=== PATIENT | male | born 1950 ===

== ENCOUNTER → 2018-05-03 | Outpatient (CLI) | payer MEDICARE ==
--- NOTE | 2018-05-03 13:48 | CONS ---
CONSULTATION DATE OF SERVICE: 05/03/2018 A 67-year-old gentleman who has been evaluated in the [facility] for possible obstructive sleep apnea-hypopnea syndrome. HISTORY OF PRESENT ILLNESS/SLEEP-WAKE EVALUATION: Patient usual sleep schedule from 1 am until around 10 a.m. Patient wakes up and around 4:00 am and cannot sleep for several hours but he falls asleep again. He snores and wakes up with dry mouth and nocturia, usually no problems with falling asleep at the beginning of the night. He sleeps on the side position with his . During the day, he may have episodes of anxiety, [place] Sleepiness Scale is 6. PAST MEDICAL HISTORY: Positive for hypertension, coronary artery disease, hyperlipidemia, anxiety, nasal fracture. PAST SURGICAL HISTORY: Left shoulder surgery for rotator cuff problems. MEDICATIONS: 1. Simvastatin. 2. Isosorbide. 3. Metoprolol. 4. [place]. 5. Meloxicam. 6. Baby aspirin. 7. Ativan on p.r.n. basis. SOCIAL HISTORY: Positive for smoking for 10 pack years, quit 5 years ago. Alcohol consumption none for the last 20 years. FAMILY HISTORY: Hypertension, heart problems, hyperlipidemia, sinus headache, snoring. REVIEW OF SYSTEMS: Awakenings from sleep with difficulties to reinitiate sleep again, snoring, episodes of chest pain. PHYSICAL EXAM: gentleman without distress,. BP 111/69, HR 80, RR 18, height 5 foot 8-1/2 inches, weight 252 pounds. Body mass index 37.7, temperature 98.3, oxygen saturation at room air 95%. OROPHARYNX: Extremely low position of soft palate. NOSE: Symmetric. ABDOMEN: Obese. NECK: Wide, 18-1/4 inches in circumference. LUNGS Clear to percussion and to auscultation. Good air exchange. No wheezing or rhonchi. HEART S1, S2 regular. No murmurs, gallops, or rubs. EXTREMITIES No clubbing or cyanosis. 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 Cranial nerves 2 to 7 intact. There is no fasciculation or atrophy. noted. No focal deficits observed. EXTREMITIES: My template. IMPRESSION: 1. Snoring, awakenings from sleep, extremely low position of soft palate, wide neck, 18-1/4 inches in circumference, obstructive sleep apnea-hypopnea syndrome. 2. Coronary artery disease. 3. Hypertension. 4. History of anxiety. 5. Hyperlipidemia. 6. Status post nasal fracture. 7. Status post left shoulder surgery for rotator cuff problems 2 years ago. PLAN: 1. Polysomnography for evaluation of patient's breathing during sleep. 2. CPAP/BiPAP titration if sleep study confirms obstructive sleep apnea-hypopnea syndrome. 3. Preferable position during sleep on the side. 4. No driving if patient feels any sleepiness. 5. I will see patient for follow up visit to explain results of testing and following plan. Thank you very much for referring this patient for consultation. Sincerely, Robles Mendoza MD, PhD, FAASM Diplomat of [place] [employer] [place] [employer] Increment Manager of [facility] [place] MMODL / TRISHN: [id number] /
== END | disposition home or self-care (01) ==
LOC: SLEEP 11:42
PROVIDERS: ATTEND Internal Medicine
DX: G47.33 Obstructive sleep apnea (adult) (pediatric) (principal); I25.10 Atherosclerotic heart disease of native coronary artery without angina pectoris; I10 Essential (primary) hypertension; F41.9 Anxiety disorder, unspecified; E78.5 Hyperlipidemia, unspecified; Z87.891 Personal history of nicotine dependence; Z79.891 Long term (current) use of opiate analgesic; Z79.1 Long term (current) use of non-steroidal anti-inflammatories (NSAID); Z79.82 Long term (current) use of aspirin; Z98.890 Other specified postprocedural states
CPT/HCPCS: 99211

== ENCOUNTER 2022-01-29 13:12 | Inpatient (IN) | payer MEDICARE ==
[2022-01-29 14:09] LABS: Basophils % (A) 1 %; Eosinophils # (A) 0.2 k/uL (0-0.7); Eosinophils % (A) 4 %; HCT 39.8 % (39.0-53.0); HGB 13.7 gm/dL (13.0-17.5); Lymphocytes # (A) 1.6 k/uL (1.0-4.8); Lymphocytes % (A) 31 %; MCH 29.4 pg (25.0-35.0); MCHC 34.3 g/dL (31.0-37.0); MCV 85.8 fL (80.0-100.0); Mean Platelet Volume 8.8; Monocytes # (A) 0.3 k/uL (0-1.0); Monocytes % (A) 6 %; Neutrophils # (A) 2.9 k/uL (1.3-7.7); Neutrophils % (A) 55 %; Platelet Count 208 k/uL (150-450); RBC 4.64 m/uL (4.30-5.90); RDW 12.8 % (11.5-15.5); WBC 5.2 k/uL (3.8-10.6)
--- NOTE | 2022-01-29 14:12 | ED ---
Chest Pain HPI - General Chief Complaint: Chest Pain Stated Complaint: chest pain-3 days Time Seen by Provider: 01/29/22 13:30 Source: patient Mode of arrival: ambulatory Limitations: no limitations - History of Present Illness Initial Comments: 71-year-old male with past history of hypertension presents to the emergency department reporting chest pain for the past 3 days. States it's exertional in nature. He first noticed it when he was loading drywall into his truck. States that he will sit down and the symptoms will resolve. He has associated shortness of breath. No radiation of the pain. Did take an aspirin 325 mg this morning. States that he had a heart cath in 2014. He had a small blockage that did not need stent placement. He has not had any type of cardiac workup since then as he has not had any symptoms. No fevers, chills or cough. No abdominal pain. No ripping or tearing sensation to his back. No lower extremity swelli ng. No history of DVT or PE. No other alleviating, precipitating or modifying factors - Related Data Home Medications Medication Instructions Recorded Confirmed Isosorbide Mononitrate [Isosorbide 30 mg PO DAILY 06/30/15 01/29/22 Mononitrate ER] Aspirin EC [Ecotrin Low Dose] 81 mg PO DAILY 01/29/22 01/29/22 HYDROcodone/APAP 10-325MG [[place] 1 tab PO TID PRN 01/29/22 01/29/22 10-325] LORazepam [Ativan] 0.5 mg PO HS PRN 01/29/22 01/29/22 Metoprolol Succinate (ER) [Toprol 100 mg PO DAILY 01/29/22 01/29/22 Xl] Allergies Allergy/AdvReac Type Severity Reaction Status Date / Time No Known Allergies Allergy Verified 01/31/22 11:03 Review of Systems ROS Statement: Those systems with pertinent positive or pertinent negative responses have been documented in the HPI. ROS Other: All systems not noted in ROS Statement are negative. EKG Findings - EKG Comments: EKG Findings:: EKG demonstrates sinus bradycardia with a rate of 57. WV interval 234. QRS 93. QTC of 408. No acute ST segment elevations or depressions. Past Medical History Past Medical History: Hyperlipidemia, Hypertension History of Any Multi-Drug Resistant Organisms: None Reported Past Surgical History: Orthopedic Surgery Additional Past Surgical History / Comment(s): LEFT SHOULDER ROTATOR CUFF, DMITRIY CATARACTS WITH IMPLANTS, LEFT WRIST ORIF, COLONOSCOPY Past Anesthesia/Blood Transfusion Reactions: No Reported Reaction Past Psychological History: Anxiety Smoking Status: Never smoker Past Alcohol Use History: None Reported Past Drug Use History: Marijuana - Past Family History Mother Family Medical History: Cancer Additional Family Medical History / Comment(s): COLON Father Family Medical History: Myocardial Infarction ([place]) Additional Family Medical History / Comment(s): Father had a myocardial infarction at age 45 General Exam Limitations: no limitations General appearance: alert, in no apparent distress Head exam: Present: atraumatic, normocephalic, normal inspection Eye exam: Present: normal appearance, PERRL, EOMI. Absent: scleral icterus, conjunctival injection, periorbital swelling ENT exam: Present: normal exam, mucous membranes moist Neck exam: Present: normal inspection. Absent: tenderness, meningismus, lymphadenopathy Respiratory exam: Present: normal lung sounds bilaterally. Absent: respiratory distress, wheezes, rales, rhonchi, stridor Cardiovascular Exam: Present: regular rate, normal rhythm, normal heart sounds. Absent: systolic murmur, diastolic murmur, rubs, gallop, clicks GI/Abdominal exam: Present: soft, normal bowel sounds. Absent: distended, tenderness, guarding, rebound, rigid Extremities exam: Present: normal inspection, full ROM, normal capillary refill. Absent: tenderness, pedal edema, joint swelling, calf tenderness Back exam: Present: normal inspection Neurological exam: Present: alert, oriented X3, CN II-XII intact Psychiatric exam: Present: normal affect, normal mood Skin exam: Present: warm, dry, intact, normal color. Absent: rash Course Vital Signs 01/29/22 01/29/22 01/29/22 13:25 13:27 15:18 Temperature 97.7 F 97.7 F Pulse Rate 63 66 57 L Respiratory 20 20 18 Rate Blood Pressure 149/82 149/92 131/85 O2 Sat by Pulse 97 97 98 Oximetry - Reevaluation(s) Reevaluation #1: Spoke with Dr. Kuhn. Be made nothing by mouth at midnight for a heart catheterization tomorrow 01/29/22 17:47 Chest Pain MDM - MDM Upon arrival patient was placed into room 22. Thorough history and physical exam was performed. 12-lead EKG is obtained which demonstrates no acute ST segment elevation. Patient remained on continuous pulse ox and cardiac monitoring. Laboratory studies were conducted which demonstrates an elevated troponin of 0.104. Patient was given nitro with improvement in his pain. He did take an aspirin prior to hospital arrival. Chest x-ray demonstrates no acute process. Patient is heparinized at this time due to NSTEMI. Spoke with Dr. Kuhn. Patient will be made nothing by mouth at midnight. He was agreeable to the treatment plan and is awaiting a bed on the floor in stable condition Critical Care Time Critical Care Time: Yes Critical Care Time: 32 minutes for nstemi, heparinzation Disposition Clinical Impression: Chest pain, NSTEMI (non-ST elevated myocardial infarction) Disposition: ADMITTED IP TO THIS HOSP Condition: Serious Is patient prescribed a controlled substance at d/c from ED?: No Time of Disposition: 15:31 Decision to Admit Reason: Admit from EC Decision Date: 01/29/22 Decision Time: 15:31
[2022-01-29 14:21] LABS: ALT 30 U/L (4-49); AST 28 U/L (17-59); African American GFR (CKD) >90 (>60 ml/min/1.73 sqM); Alkaline Phosphatase 77 U/L (38-126); Anion Gap 12 mmol/L; Blood Urea Nitrogen 26 mg/dL (9-20); Carbon Dioxide 24 mmol/L (22-30); Chloride 101 mmol/L (98-107); Glucose 107 mg/dL (74-99); Lipase 40 U/L (23-300); Non-African American GFR(CKD) 88 (>60 ml/min/1.73 sqM); Partial Thromboplastin Time 26.2 sec (22.0-30.0); Potassium 4.6 mmol/L (3.5-5.1); Prothrombin Time 10.9 sec (9.0-12.0); Sodium 137 mmol/L (137-145); Total Bilirubin 0.9 mg/dL (0.2-1.3); Total Protein 6.9 g/dL (6.3-8.2)
--- NOTE | 2022-01-29 14:24 | XR ---
EXAMINATION TYPE: XR chest 2V DATE OF EXAM: 01/29/2022 COMPARISON: 05/23/2011 HISTORY: Chest pain TECHNIQUE: 2 views FINDINGS: Heart and mediastinum are normal. Lungs are clear. Diaphragm is normal. Bony thorax is inta ct. IMPRESSION: Normal chest. No change.
[2022-01-29] MEDS ORDERED: NITROGLYCERIN SL TABS 0.4 MG TAB SUBLINGUAL STA (14:34)
[2022-01-29] MEDS ORDERED: HEPARIN SODIUM 1,000 UN/ML (10ML VL) IV ONE (15:00)
[2022-01-29] MEDS ORDERED: NALOXONE 0.4 MG/ML 1 ML VIAL IV PRN (15:31)
[2022-01-29] MEDS: HEPARIN SOD,PORK IN 0.45% NACL 25,000 UNIT in 0.45% NACL 1 250ML.BAG IV SCH (15:38)
[2022-01-29] MEDS ORDERED: LORazepam 0.5 MG TAB PO PRN (17:12)
[2022-01-29] MEDS: HEPARIN SODIUM 1,000 UN/ML (10ML VL) IV PRN (21:48)
[2022-01-30 04:55] LABS: Basophils % (A) 1 %; Eosinophils # (A) 0.2 k/uL (0-0.7); Eosinophils % (A) 5 %; HCT 39.7 % (39.0-53.0); HGB 13.6 gm/dL (13.0-17.5); Lymphocytes # (A) 1.9 k/uL (1.0-4.8); Lymphocytes % (A) 39 %; MCH 29.2 pg (25.0-35.0); MCHC 34.2 g/dL (31.0-37.0); MCV 85.5 fL (80.0-100.0); Mean Platelet Volume 8.7; Monocytes # (A) 0.3 k/uL (0-1.0); Monocytes % (A) 5 %; Neutrophils # (A) 2.3 k/uL (1.3-7.7); Neutrophils % (A) 47 %; Platelet Count 182 k/uL (150-450); RBC 4.65 m/uL (4.30-5.90); RDW 13.2 % (11.5-15.5); WBC 4.9 k/uL (3.8-10.6)
[2022-01-30 05:11] LABS: INR 1.1 (<1.2); Partial Thromboplastin Time 67.2 sec (22.0-30.0); Prothrombin Time 11.5 sec (9.0-12.0)
[2022-01-30] MEDS: HEPARIN SOD,PORK IN 0.45% NACL 25,000 UNIT in 0.45% NACL 1 250ML.BAG IV SCH (05:24)
[2022-01-30 05:37] LABS: African American GFR (CKD) >90 (>60 ml/min/1.73 sqM); Anion Gap 8 mmol/L; Blood Urea Nitrogen 20 mg/dL (9-20); Calcium 8.9 mg/dL (8.4-10.2); Carbon Dioxide 26 mmol/L (22-30); Chloride 102 mmol/L (98-107); Glucose 106 mg/dL (74-99); Non-African American GFR(CKD) 87 (>60 ml/min/1.73 sqM); Potassium 4.2 mmol/L (3.5-5.1); Sodium 136 mmol/L (137-145)
[2022-01-30] MEDS ORDERED: ASPIRIN 325 MG TAB PO STA (08:05)
[2022-01-30] MEDS ORDERED: HYDROcodone/APAP 10-325MG 1 EACH TAB PO PRN (08:39)
[2022-01-30] MEDS ORDERED: VERAPAMIL 2.5 MG/ML 2 ML AMP ONE (09:05)
[2022-01-30] MEDS ORDERED: fentaNYL (PF) 50 MCG/ML 2 ML AMP ONE (09:31)
[2022-01-30] MEDS ORDERED: HEPARIN SODIUM 1,000 UN/ML (10ML VL) ONE (09:31)
[2022-01-30] MEDS: MIDAZOLAM 2 MG/2 ML VIAL IVP ONE ×2 (09:35→10:02)
[2022-01-30] MEDS ORDERED: fentaNYL (PF) 50 MCG/ML 2 ML AMP IVP ONE (09:35)
[2022-01-30] MEDS ORDERED: LIDOCAINE 1% INJ 10MG/ML (30 ML VIAL-PF) SQ ONE (09:35)
[2022-01-30] MEDS ORDERED: VERAPAMIL SYRINGE (5 MG/10 ML) INTRAARTER ONE (09:40)
[2022-01-30] MEDS ORDERED: IV FLUID CONTINUATION 1,000 ML IV ONE (09:42)
[2022-01-30] MEDS: HEPARIN SODIUM 1,000 UN/ML (10ML VL) IV ONE ×2 (09:42→10:03)
[2022-01-30] MEDS ORDERED: ATROPINE SULFATE 0.1 MG/ML 10ML SYRINGE IV ONE ×2 (09:54)
[2022-01-30] MEDS ORDERED: NITROGLYCERIN OINT 1 INCH/GM PACKET TOPICAL ONE (10:05)
[2022-01-30] MEDS ORDERED: METOPROLOL TARTRATE 25 MG TAB PO STA (10:11)
[2022-01-30] MEDS ORDERED: IOPAMIDOL-370 125ML BTL INJ ONE (10:12)
[2022-01-30] MEDS ORDERED: NITROGLYCERIN SL TABS 0.4 MG TAB SUBLINGUAL ONE ×3 (10:16→23:29)
[2022-01-30] MEDS ORDERED: HYDROmorphone 0.5 MG/0.5 ML SYRINGE IVP ONE (10:20)
[2022-01-30] MEDS: METOPROLOL SUCCINATE (ER) 100 MG TAB.ER.24H PO SCH (11:20)
[2022-01-30] MEDS: ATORVASTATIN 40 MG TAB PO SCH (11:25)
[2022-01-30] MEDS: ISOSORBIDE MONONITRATE ER 30 MG TAB.ER.24H PO SCH (11:29)
--- NOTE | 2022-01-30 11:29 | CA ---
Transthoracic Echo Report Name: Obed Singh Age: 71 Gender: M : 1950 Exam Date: 01/30/2022 10:34 Exam Location: [facility] Ht (in): 72 Wt (lb): 240 Ordering Physician: Monico Kuhn MD ([id number]) Attending/Referring Phys: Hattie KEARNEY [employer] Captain Mud Analysis Alix Hennessy RDCS Procedure CPT: Indications: Chest Pain Cardiac Hx: Technical Quality: Good Contrast 1: Total Dose (mL): Contrast 2: Total Dose (mL): MEASUREMENTS (Male / Female) Normal Values 2D ECHO LV Diastolic Diameter PLAX 4.7 cm 4.2 - 5.9 / 3.9 - 5.3 cm LV Systolic Diameter PLAX 2.8 cm IVS Diastolic Thickness 1.2 cm 0.6 - 1.0 / 0.6 - 0.9 cm LVPW Diastolic Thickness 1.4 cm 0.6 - 1.0 / 0.6 - 0.9 cm LV Relative Wall Thickness 0.6 RV Internal Dim ED PLAX 3.5 cm LA Systolic Diameter LX 3.5 cm 3.0 - 4.0 / 2.7 - 3.8 cm LA Volume 53.5 cm??? 18 - 58 / 22 - 52 cm??? M-MODE Aortic Root Diameter MM 3.6 cm LA Systolic Diameter MM 4.6 cm LA Ao Ratio MM 1.3 MV E Point Septal Separation 0.3 cm AV Cusp Separation MM 2.0 cm DOPPLER MV E' Velocity 4.3 cm/s TR Peak Velocity 221.6 cm/s TR Peak Gradient 19.6 mmHg FINDINGS Left Ventricle Left ventricular ejection fraction is estimated at 50 %. Inferior basal hypokinesis. Mildly increased left ventricular wall thickness. Right Ventricle Normal right ventricular size and function. Right Atrium Normal right atrial size. Left Atrium Normal left atrial size. Mitral Valve Structurally normal mitral valve. Mild mitral regurgitation. Aortic Valve Trileaflet aortic valve. Tricuspid Valve Structurally normal tricuspid valve. Mild tricuspid regurgitation. Pulmonic Valve Structurally normal pulmonic valve. Pericardium Normal pericardium. Aorta Normal size aortic root and proximal ascending aorta. CONCLUSIONS Left ventricular systolic function appears preserved with an ejection fraction of 50% there is hypokinesis of the basal inferior wall suggestive of prior myocardial infarction Mild mitral and tricuspid regurgitation Previewed by: Dr. Monico Kuhn MD (Electronically Signed) Final Date: 30 January 2022 11:29
--- NOTE | 2022-01-30 11:51 | P.GSCN ---
History of Present Illness Consult date: 01/30/22 Reason for Consult: Multivessel coronary artery disease, non-ST elevated myocardial infarction this admission. Evaluate for myocardial revascularization surgery. Requesting physician: Monico Kuhn History of present illness: This is a 71-year-old gentleman who follows with Dr. Chan Gutierrez for his primary care service and Dr. Aguero for his cardiology care. His past medical history significant for hypertension, hyperlipidemia, obstructive sleep apnea without CPAP use, family history of early onset coronary artery disease with his dad having a myocardial infarction at age 45, anxiety and remote history of n icotine dependence in which he quit smoking 8 years ago. The patient is retired but is currently helping his daughter build a home. He reports 3 days ago he was taking some things out to his dear blind and ended up developing some chest pressure, head pressure and felt as if he was going to pass out. After sitting down for about 15-20 minutes the chest and head pressure resolved. He reports over the next couple of days while working on the home for his daughter he was having episodes of chest pressure and head pressure which was also relieved by periods of rest. Due to the above-mentioned symptoms he was prompted to go to the emergency department here at [facility] by his . A 12- lead EKG was completed which showed sinus bradycardia with first-degree AV block and occasional PVCs with a heart rate of 57 BPM. A chest x-ray was completed which showed a normal chest. Initial laboratory results showed a WBC count of 5.2, hemoglobin 13.7, hematocrit 39.8, platelets 208, PT 10.9, INR 1.0, PTT 26.2, sodium 137, potassium 4.6, BUN 26, creatinine 0.85, glucose 107, calcium 9.0, magnesium 2.0, and proBNP 155. The patient also had a positive serial troponins as high as 0.258. The patient was subsequently ruled in for a non-ST elevated myocardial infarction. Cardiology was consulted and the patient underwent a cardiac catheterization today which demonstrated a 50-60% stenosis to his left main coronary artery, a 90% stenosis to his proximal left anterior descending coronary artery and a 90% stenosis to his right coronary artery. A transthoracic 2-D echocardiogram has also been completed, although the results remain pending. Due to the findings on the cardiac catheterization a consult was placed to Dr. Faisal Huynh from cardiothoracic surgery for further evaluation and treatment recommendations including myocardial revascularization surgery. Review of Systems A 14 point review of systems was completed and was negative except as mentioned in the HPI. Past Medical History Past Medical History: Hyperlipidemia, Hypertension, Sleep Apnea/CPAP/BIPAP History of Any Multi-Drug Resistant Organisms: None Reported Past Surgical History: Orthopedic Surgery, Tonsillectomy Additional Past Surgical History / Comment(s): LEFT SHOULDER ROTATOR CUFF, DMITRIY CATARACTS WITH IMPLANTS, LEFT WRIST ORIF, COLONOSCOPY, and vasectomy Past Anesthesia/Blood Transfusion Reactions: No Reported Reaction Past Psychological History: Anxiety Smoking Status: Never smoker (Quit smoking 8 years ago) Past Alcohol Use History: None Reported Past Drug Use History: Marijuana - Past Family History Mother Family Medical History: Cancer Additional Family Medical History / Comment(s): COLON Father Family Medical History: Myocardial Infarction ([place]) Additional Family Medical History / Comment(s): Father had a myocardial infarction at age 45 Medications and Allergies Home Medications Medication Instructions Recorded Confirmed Type Isosorbide Mononitrate [Isosorbide 30 mg PO DAILY 06/30/15 01/29/22 History Mononitrate ER] Aspirin EC [Ecotrin Low Dose] 81 mg PO DAILY 01/29/22 01/29/22 History HYDROcodone/APAP 10-325MG [[place] 1 tab PO TID PRN 01/29/22 01/29/22 History 10-325] LORazepam [Ativan] 0.5 mg PO HS PRN 01/29/22 01/29/22 History Metoprolol Succinate (ER) [Toprol 100 mg PO DAILY 01/29/22 01/29/22 History Xl] Allergies Allergy/AdvReac Type Severity Reaction Status Date / Time No Known Allergies Allergy Verified 01/29/22 18:20 Surgical - Exam Vital Signs Temp Pulse Resp BP Pulse Ox 97.7 F 63 20 149/82 97 01/29/22 13:25 01/29/22 13:25 01/29/22 13:25 01/29/22 13:25 01/29/22 13:25 - General well developed, well nourished, no distress, no pain, obese - Eyes PERRL, normal ocular movement, no pale, no icteric - ENT normal pinna, normal nares, normal mucosa, no hearing loss, no congestion - Neck Neck is supple, no lymphadenopathy. no masses, no bruits, trachea midline, no venous distension - Respiratory Lungs essentially clear throughout. Respirations are symmetrical and nonlabored. - Cardiovascular Regular rhythm and rate. S1 and S2 present, negative for S3, gallop or murmur. Peripheral pulses palpable. No peripheral edema. - Abdomen Abdomen is soft, nontender and nondistended. Active bowel sounds present in all 4 quadrants. No guarding or rigidity. No organomegaly appreciated. - Genitourinary Deferred - Rectum Deferred - Integumentary Skin is warm and dry. No clubbing or cyanosis is present. no rash, no growths, no abnormal pigmentation - Neurologic Cranial nerves II through XII intact. No focal deficits. normal coordination, normal sensation - Musculoskeletal Moves all 4 extremities with equal strength bilaterally. - Psychiatric oriented to time, oriented to person, oriented to place, speech is normal, memory intact Results - Labs 01/30/22 04:36 01/30/22 04:36 Abnormal Lab Results - Last 24 Hours (Table) 01/29/22 01/29/22 01/29/22 Range/Units 13:37 13:37 18:05 APTT (22.0-30.0) sec Sodium (137-145) mmol/L BUN 26 H (9-20) mg/dL Glucose 107 H (74-99) mg/dL Troponin I 0.104 H* 0.166 H* (0.000-0.034) ng/mL 01/29/22 01/30/22 01/30/22 Range/Units 20:59 04:36 04:36 APTT 67.2 H (22.0-30.0) sec Sodium 136 L (137-145) mmol/L BUN (9-20) mg/dL Glucose 106 H (74-99) mg/dL Troponin I 0.258 H* (0.000-0.034) ng/mL Diabetes panel 01/29/22 01/30/22 Range/Units 13:37 04:36 Sodium 137 136 L (137-145) mmol/L Potassium 4.6 4.2 (3.5-5.1) mmol/L Chloride 101 102 (98-107) mmol/L Carbon Dioxide 24 26 (22-30) mmol/L BUN 26 H 20 (9-20) mg/dL Creatinine 0.85 0.89 (0.66-1.25) mg/dL Glucose 107 H 106 H (74-99) mg/dL Calcium 9.0 8.9 (8.4-10.2) mg/dL AST 28 (17-59) U/L ALT 30 (4-49) U/L Alkaline Phosphatase 77 (38-126) U/L Total Protein 6.9 (6.3-8.2) g/dL Albumin 4.0 (3.5-5.0) g/dL Calcium panel 01/29/22 01/30/22 Range/Units 13:37 04:36 Calcium 9.0 8.9 (8.4-10.2) mg/dL Albumin 4.0 (3.5-5.0) g/dL Pituitary panel 01/29/22 01/30/22 Range/Units 13:37 04:36 Sodium 137 136 L (137-145) mmol/L Potassium 4.6 4.2 (3.5-5.1) mmol/L Chloride 101 102 (98-107) mmol/L Carbon Dioxide 24 26 (22-30) mmol/L BUN 26 H 20 (9-20) mg/dL Creatinine 0.85 0.89 (0.66-1.25) mg/dL Glucose 107 H 106 H (74-99) mg/dL Calcium 9.0 8.9 (8.4-10.2) mg/dL Adrenal panel 01/29/22 01/30/22 Range/Units 13:37 04:36 Sodium 137 136 L (137-145) mmol/L Potassium 4.6 4.2 (3.5-5.1) mmol/L Chloride 101 102 (98-107) mmol/L Carbon Dioxide 24 26 (22-30) mmol/L BUN 26 H 20 (9-20) mg/dL Creatinine 0.85 0.89 (0.66-1.25) mg/dL Glucose 107 H 106 H (74-99) mg/dL Calcium 9.0 8.9 (8.4-10.2) mg/dL Total Bilirubin 0.9 (0.2-1.3) mg/dL AST 28 (17-59) U/L ALT 30 (4-49) U/L Alkaline Phosphatase 77 (38-126) U/L Total Protein 6.9 (6.3-8.2) g/dL Albumin 4.0 (3.5-5.0) g/dL - Imaging Chest x-ray: report reviewed, image reviewed EKG: image reviewed Assessment and Plan Assessment: 1. Multivessel coronary artery disease 2. Non-ST elevated myocardial infarction this admission, with serial troponins as high as 0.258 3. History of hypertension 4. History of hyperlipidemia 5. Obstructive sleep apnea without home CPAP use 6. Family history of early onset coronary artery disease with his dad having a myocardial infarction at age 45 7. Remote history of nicotine dependence quit smoking 8 years ago 8. Anxiety 9. Chronic lower back pain Plan: The patient was seen and examined at his bedside on the cardiac stepdown unit. His chart and diagnostics reviewed. His case was discussed in detail with Dr. Faisal Huynh from cardiothoracic surgery. Preoperative testing and preoperative teaching has been initiated. Once the patient is able to ambulate we will obtain a 5 m walk test. Once his preoperative testing has been collected we will calculate a STS risk score. Continue to optimize medical management with aspirin, statin and beta barbara. Medical management and other comorbidities p er primary care service. We will consult Dr. Soto from pulmonary medicine. More recommendations to follow based on patient's clinical course and as his preoperative workup has been completed. Thank you Dr. Kuhn for this consult and we look forward to working with you in the care of this patient. I have personally seen and examined the patient, performed the documentation and the assessment and plan as written. 30 minutes spent on the visit . Henry OLMSTEAD This is a 71 year-old gentleman with a hx of htn, hld, who is a previous smoker who presents with an NSTEMI. Cath reveals 3v CAD with distal left main and a tight RCA lesion. Echo shows preserved EF. He is a good candidate for surgical revascularization. We will plan for OPCABG x 3, LAAL this admission.
[2022-01-30] MEDS ORDERED: MD COMMUNICATION TO PHARMACY 1 EACH MISC PO ONE ×5 (12:07→12:10)
--- NOTE | 2022-01-30 13:09 | CONS ---
CONSULTATION CHIEF COMPLAINT: Chest pain. HISTORY OF PRESENT ILLNESS: Obed is a 71-year-old gentleman with history of mild non-obstructive coronary artery disease, hypertension who presented to [facility] complaining of chest pain. For the last 3 days, he has been having intermittent episodes of chest pressure. While he was helping his daughter build a house, he was carrying drywall yesterday, the pain became severe, so he came to the emergency room. He was pain-free. EKG showed sinus rhythm with nonspecific ST-T wave changes and had a troponin that was elevated at 0.1 and subsequent troponins were 0.16 and 0.25. At the time of my evaluation, patient is hemodynamically stable and in no apparent distress. Hemoglobin is normal, potassium is 4.2, creatinine is 0.89. The patient states that he had a cardiac catheterization more than 5 years ago and was told he has CAD, but did not require any stenting. Subsequently, he was followed up by a real estate sales agent in [facility] on the recommendation of his sister and he stopped following after COVID. I advised the patient to undergo cardiac catheterization for further evaluation. He had been explained of risks, benefits, and alternatives. PAST MEDICAL HISTORY: Significant for CAD and hypertension. CURRENT MEDICATIONS: Include [place], Toprol-XL 100 mg daily, Imdur 30 mg daily, aspirin, and Ativan. ALLERGIES: There are no known drug allergies. FAMILY HISTORY: Negative for premature coronary artery disease. SOCIAL HISTORY: Denies current smoking, EtOH abuse or drug abuse. REVIEW OF SYSTEMS: A review of systems has been performed, pertinent are as documented. PHYSICAL EXAMINATION: GENERAL: He appears comfortable at rest. VITAL SIGNS: Stable. NECK: There is no jugular venous distention. Carotid upstroke is normal. There is no bruit. CHEST: Reveals good air entry bilaterally. HEART: Reveals first and second heart sounds. No gallop, no murmur. ABDOMEN: Soft, nontender. EXTREMITIES: Did not reveal any edema. Peripheral pulses are felt. LABS: Labs show that the potassium is 4.2, creatinine is 0.89, troponin is mildly elevated, and BNP is normal. ASSESSMENT: Acute [id number] myocardial infarction. PLAN: I advised the patient to undergo cardiac catheterization. We will decide on further course of action based on the cath findings. I will check a lipid profile and treat him accordingly. MMODL / IJN: [id number] /
--- NOTE | 2022-01-30 13:09 | CONS ---
CONSULTATION CHIEF COMPLAINT: Chest pain. HISTORY OF PRESENT ILLNESS: Obed is a 71-year-old gentleman with history of mild non-obstructive coronary artery disease, hypertension who presented to [facility] complaining of chest pain. For the last 3 days, he has been having intermittent episodes of chest pressure. While he was helping his daughter build a house, he was carrying drywall yesterday, the pain became severe, so he came to the emergency room. He was pain-free. EKG showed sinus rhythm with nonspecific ST-T wave changes and had a troponin that was elevated at 0.1 and subsequent troponins were 0.16 and 0.25. At the time of my evaluation, patient is hemodynamically stable and in no apparent distress. Hemoglobin is normal, potassium is 4.2, creatinine is 0.89. The patient states that he had a cardiac catheterization more than 5 years ago and was told he has CAD, but did not require any stenting. Subsequently, he was followed up by a research and development technician in [facility] on the recommendation of his sister and he stopped following after COVID. I advised the patient to undergo cardiac catheterization for further evaluation. He had been explained of risks, benefits, and alternatives. PAST MEDICAL HISTORY: Significant for CAD and hypertension. CURRENT MEDICATIONS: Include [place], Toprol-XL 100 mg daily, Imdur 30 mg daily, aspirin, and Ativan. ALLERGIES: There are no known drug allergies. FAMILY HISTORY: Negative for premature coronary artery disease. SOCIAL HISTORY: Denies current smoking, EtOH abuse or drug abuse. REVIEW OF SYSTEMS: A review of systems has been performed, pertinent are as documented. PHYSICAL EXAMINATION: GENERAL: He appears comfortable at rest. VITAL SIGNS: Stable. NECK: There is no jugular venous distention. Carotid upstroke is normal. There is no bruit. CHEST: Reveals good air entry bilaterally. HEART: Reveals first and second heart sounds. No gallop, no murmur. ABDOMEN: Soft, nontender. EXTREMITIES: Did not reveal any edema. Peripheral pulses are felt. LABS: Labs show that the potassium is 4.2, creatinine is 0.89, troponin is mildly elevated, and BNP is normal. ASSESSMENT: Acute iur-YS-ukduvvu myocardial infarction. PLAN: I advised the patient to undergo cardiac catheterization. We will decide on further course of action based on the cath findings. I will check a lipid profile and treat him accordingly. MMODL / IJN: [id number] /
--- NOTE | 2022-01-30 13:15 | P.HPIM ---
History of Present Illness H&P Date: 01/30/22 Chief Complaint: Chest pain 71-year-old gentleman; past medical history significant for hypertension, hyperlipidemia, obstructive sleep apnea without CPAP use, reports 3 days ago he was taking some things out to his dear blind and ended up developing some chest pressure, head pressure and felt as if he was going to pass out. After sitting down for about 15-20 minutes the chest and head pressure resolved. He reports over the next couple of days while working on the home for his daughter he was having episodes of chest pressure and head pressure which was also relieved by periods of rest. Due to the above-mentioned symptoms he was prompted to go to the emergency department here at [facility] by his . Workup in ED includes 12-lead EKG was completed which showed sinus bradycardia with first-degree AV block and occasional PVCs with a heart rate of 57 BPM. A chest x-ray was completed which showed a normal chest. Initial laboratory results showed a WBC count of 5.2, hemoglobin 13.7, hematocrit 39.8, platelets 208, PT 10.9, INR 1.0, PTT 26.2, sodium 137, potassium 4.6, BUN 26, creatinine 0.85, glucose 107, calcium 9.0, magnesium 2.0, and proBNP 155. The patient also had a positive serial troponins as high as 0.258. Cardiology was consulted and the patient underwent a cardiac catheterization today which demonstrated a 50-60% stenosis to his left main coronary artery, a 90% stenosis to his proximal left anterior descending coronary artery and a 90% stenosis to his right coronary artery. A transthoracic 2-D echocardiogram has also been completed, although the results remain pending. Due to the findings on the cardiac catheterization a consult for cardiothoracic surgery is. Review of Systems REVIEW OF SYSTEMS: CONSTITUTIONAL: No fever, no malaise, no fatigue. HEENT: No recent visual problems or hearing problems. Denied any sore throat. CARDIOVASCULAR: chest pain PULMONARY: No shortness of breath, no cough, no hemoptysis. GASTROINTESTINAL: No diarrhea, no nausea, no vomiting, no abdominal pain. NEUROLOGICAL: No headaches, no weakness, no numbness. HEMATOLOGICAL: Denies any bleeding or petechiae. GENITOURINARY: Denies any burning micturition, frequency, or urgency. MUSCULOSKELETAL/RHEUMATOLOGICAL: Denies any joint pain, swelling, or any muscle pain. ENDOCRINE: Denies any polyuria or polydipsia. The rest of the 14-point review of systems is negative. Past Medical History Past Medical History: Hyperlipidemia, Hypertension History of Any Multi-Drug Resistant Organisms: None Reported Past Surgical History: Orthopedic Surgery Additional Past Surgical History / Comment(s): LEFT SHOULDER ROTATOR CUFF, DMITRIY CATARACTS WITH IMPLANTS, LEFT WRIST ORIF, COLONOSCOPY Past Anesthesia/Blood Transfusion Reactions: No Reported Reaction Past Psychological History: Anxiety Smoking Status: Never smoker Past Alcohol Use History: None Reported Past Drug Use History: Marijuana - Past Family History Mother Family Medical History: Cancer Additional Family Medical History / Comment(s): COLON Father Family Medical History: Myocardial Infarction ([place]) Additional Family Medical History / Comment(s): Father had a myocardial infarction at age 45 Medications and Allergies Home Medications Medication Instructions Recorded Confirmed Type Isosorbide Mononitrate [Isosorbide 30 mg PO DAILY 06/30/15 01/29/22 History Mononitrate ER] Aspirin EC [Ecotrin Low Dose] 81 mg PO DAILY 01/29/22 01/29/22 History HYDROcodone/APAP 10-325MG [[place] 1 tab PO TID PRN 01/29/22 01/29/22 History 10-325] LORazepam [Ativan] 0.5 mg PO HS PRN 01/29/22 01/29/22 History Metoprolol Succinate (ER) [Toprol 100 mg PO DAILY 01/29/22 01/29/22 History Xl] Allergies Allergy/AdvReac Type Severity Reaction Status Date / Time No Known Allergies Allergy Verified 01/29/22 18:20 Physical Exam Vitals: Vital Signs Temp Pulse Pulse Resp BP BP Pulse Ox 01/30/22 03:50 97.6 F 70 15 133/86 95 01/29/22 23:14 97.8 F 66 15 118/65 97 01/29/22 19:39 98 F 62 18 119/62 96 01/29/22 17:36 98.2 F 64 16 152/80 98 01/29/22 15:18 57 L 18 131/85 98 01/29/22 13:27 97.7 F 66 20 149/92 97 01/29/22 13:25 97.7 F 63 20 149/82 97 Intake and Output 01/29/22 01/30/22 01/30/22 22:59 06:59 14:59 Intake Total 61.667 100.676 34.376 Balance 61.667 100.676 34.376 Intake: Intake, IV Titration 61.667 100.676 34.376 Amount Heparin Sod,Pork in 0.45% 61.667 100.676 34.376 NaCl 25,000 unit In 0.45 % NaCl 1 250ml.bag @ 9. 186 UNITS/KG/HR 10 mls/hr IV .Q24H [facility] Rx#: [id number] Oral 0 Other: # Voids 1 Weight 108.862 kg PHYSICAL EXAMINATION: GENERAL: The patient is alert and oriented x3, not in any acute distress. Well developed, well nourished. HEENT: Pupils are round and equally reacting to light. EOMI. No scleral icterus. No conjunctival pallor. Normocephalic, atraumatic. No pharyngeal erythema. No thyromegaly. CARDIOVASCULAR: S1 and S2 present. No murmurs, rubs, or gallops. PULMONARY: Chest is clear to auscultation, no wheezing or crackles. ABDOMEN: Soft, nontender, nondistended, normoactive bowel sounds. No palpable organomegaly. MUSCULOSKELETAL: No joint swelling or deformity. EXTREMITIES: No cyanosis, clubbing, or pedal edema. NEUROLOGICAL: Gross neurological examination did not reveal any focal deficits. SKIN: No rashes. Results CBC & Chem 7: 01/30/22 04:36 01/30/22 04:36 Labs: Abnormal Lab Results - Last 24 Hours (Table) 01/29/22 01/29/22 01/29/22 Range/Units 13:37 13:37 18:05 APTT (22.0-30.0) sec Sodium (137-145) mmol/L BUN 26 H (9-20) mg/dL Glucose 107 H (74-99) mg/dL Troponin I 0.104 H* 0.166 H* (0.000-0.034) ng/mL 01/29/22 01/30/22 01/30/22 Range/Units 20:59 04:36 04:36 APTT 67.2 H (22.0-30.0) sec Sodium 136 L (137-145) mmol/L BUN (9-20) mg/dL Glucose 106 H (74-99) mg/dL Troponin I 0.258 H* (0.000-0.034) ng/mL Assessment and Plan Assessment: 1. Chest pain/non-ST elevation [place] - Patient is currently on IV heparin and chest pain-free - Patient is status post cardiac catheterization which revealed a triple vessel coronary artery disease; cardiothoracic surgery has been consulted and patient is being evaluated for surgery likely in next 24 hours 2. Hypertension; metoprolol 25 mg 3 times a day 3. Hyperlipidemia; continue with home statin therapy 4. Left shoulder rotator cuff injury; continue with home pain regimen 5. Morbid obesity; counseling done DVT prophylaxis; SCDs/IV heparin CODE STATUS; full code
--- NOTE | 2022-01-30 13:55 | US ---
EXAMINATION TYPE: US carotid duplex BILAT DATE OF EXAM: 01/30/2022 COMPARISON: NONE CLINICAL HISTORY: Pre-Op Cardiac Surgery. Bypass surgery tomorrow TECHNIQUE: Carotid duplex ultrasound examination. Indirect Doppler criteria was utilized. FINDINGS: EXAM MEASUREMENTS: RIGHT: Peak Systolic Velocity (PSV) cm/sec ----- Right CCA: 88.3 ----- Right ICA: 98.7 ----- Right ECA: 112.0 ICA/CCA ratio: 1.1 RIGHT: End Diastole cm/sec ----- Right CCA: 20.1 ----- Right ICA: 23.6 ----- Right ECA: 8.5 LEFT: Peak Systolic Velocity (PSV) cm/sec ----- Left CCA: 90.9 ----- Left ICA: 90.3 ----- Left ECA: 140 ICA/CCA ratio: 1.0 LEFT: End Diastole cm/sec ----- Left CCA: 20.1 ----- Left ICA: 27.3 ----- Left ECA: 14.3. VERTEBRALS (direction of flow): Right Vertebral: Antegrade Left Vertebral: Antegrade Rhythm: Normal EXTRACT WRINGER NOTES: Mild homogeneous plaque with no stenosis seen IMPRESSION: Less than 50% stenosis of the bilateral carotid bifurcations. Criteria for Assigning % of Stenosis / Diameter reduction (Estimation based on the indirect measurements of the internal carotid artery velocities (ICA PSV). 1. Normal (no stenosis)=ICA PSV < 125 cm/s: ratio < 2.0: ICA EDV<40 cm/s. 2. Less than 50% stenosis=ICA PSV < 125 cm/s: ratio < 2.0: ICA EDV<40 cm/s. 3. 50 to 69% stenosis=ICA PSV of 125 to 230 cm/s: ration 2.0 ? 4.0: ICA EDV 40-100 cm/s. 4. Greater than 70% stenosis to near occlusion= ICA PSV > 230 cm/s: ratio > 4.0: ICA EDV > 100 cm/s. 5. Near occlusion= ICA PSV velocities may be low or undetectable: variable ratio and ICA EDV. 6. Total occlusion=unable to detect flow.
--- NOTE | 2022-01-30 14:41 | CT ---
EXAMINATION TYPE: CT chest wo con DATE OF EXAM: 01/30/2022 COMPARISON: None HISTORY: CT DLP: mGycm Automated exposure control for dose reduction was used. Images obtained from the thoracic inlet to the diaphragm with no contrast. There is some mild asymmetric enlargement of the right thyroid lobe. No mediastinal adenopathy. There is coronary artery calcification. Heart size is normal. No pericardial effusion. There are no hilar masses. The lungs are clear of consolidation. No evidence of a pulmonary mass. No pleural effusion. Liver and spleen are intact. No evidence of pancreatic mass. There is high attenuation in the renal c ollecting systems apparently from previous contrast exam. The thoracic spine is intact. No compressio n fracture. Sternum is intact. The ribs are intact. There are some small calcified gallstones. IMPRESSION: Atherosclerotic vascular disease. No suspicious pulmonary mass. Retrosternal goiter. Cholelithiasis.
[2022-01-30 17:42] LABS: Appearance,Urine Clear (Clear); Bilirubin,Urine Negative (Negative); Blood,Urine Negative (Negative); Color,Urine Light Yellow; Glucose,Urine (UA) Negative (Negative); Ketones,Urine Negative (Negative); Leukocyte Esterase,Urine Negative (Negative); Nitrite,Urine Negative (Negative); Protein,Urine Negative (Negative); Urobilinogen,Urine <2.0 mg/dL (<2.0)
[2022-01-30 20:15] LABS: LDL Cholesterol,Calculated 107.8 mg/dL (0.0-131.0)
[2022-01-30] MEDS: MUPIROCIN 2% OINT 22 GM TUBE NASAL SCH (21:37)
[2022-01-30 22:45] LABS: Hepatitis A Antibody IgM Nonreactive (Nonreactive); Hepatitis B Core IgM Nonreactive (Nonreactive); Hepatitis B Surface Antigen Nonreactive (Nonreactive); Hepatitis C IgG Antibody Nonreactive (Nonreactive)
--- NOTE | 2022-01-31 00:18 | EEG ---
ELECTROENCEPHALOGRAM REPORT INDICATION: Acute zpt-CO-ctinplo elevation [place]. PROCEDURE NOTE: After obtaining informed consent, left heart catheterization and coronary angiogram were performed via the right radial artery. The right radial artery access was obtained using Seldinger technique. A micropuncture needle was used and a 6-Uzbek sheath was placed and under fluoroscopic guidance, catheters and wires were exchanged in the ascending aorta. The right coronary artery was engaged using the Perfecto catheter. The left coronary artery was engaged using size 3.5 Justine catheter. I also tried size 4 and successfully the left coronary angiogram was obtained by Dr. Morales the on-call exchange specialist. The hemodynamics were obtained using the 3.5 6- Uzbek Justine catheter. The patient had some bradycardia after obtaining the right coronary angiogram and received 0.5 mg of atropine, and also had some chest tightness and we put nitroglycerin paste. At the end of the procedure, the patient is hemodynamically stable and comfortable at rest. He received 5 mg of verapamil per protocol and 3000 units of heparin. Total sedation time was 22 minutes. FINDINGS: 1. Hemodynamics: Left ventricular end-diastolic pressure was 14 mm. There is no significant gradient across the aortic valve. 2. Left ventriculogram: Left ventriculogram was not performed. 3. Angiographic data: a.Right coronary artery: Right coronary artery is a large dominant vessel, shows a focal 95% stenosis in the mid RCA. b.Left main coronary artery is a normal-sized vessel. In the distal left main, there is a 60% stenosis, divides into circumflex coronary artery and left anterior descending coronary artery. The ostial LAD has a focal 90% to 95% stenosis. There is mild nonobstructive plaque involving the ostial portion of the circumflex coronary artery also. CONCLUSION: Significant distal left main severe proximal LAD and mid RCA stenosis. PLAN: The patient is best treated with bypass surgery given the distal left main and the ostial LAD stenosis. I am going to ask Dr. Huynh, the on-call cardiothoracic surgeon, to evaluate the patient and proceed with surgery. We will start him back on IV heparin, nitroglycerin paste, aspirin, beta blockers, and YSABEL inhibitors along with statins. I will obtain a 2D echo on him to rule out significant valvular heart disease and to assess his LV function prior to surgery. I am hoping that the surgery will be done semi-electively early next week, but if he continues to have chest pain, surgeon is available to take him to surgery on an emergent basis. MMODL / IJN: [id number] /
--- NOTE | 2022-01-31 00:18 | EEG ---
ELECTROENCEPHALOGRAM REPORT INDICATION: Acute emx-VK-phkzipz elevation AK. PROCEDURE NOTE: After obtaining informed consent, left heart catheterization and coronary angiogram were performed via the right radial artery. The right radial artery access was obtained using Seldinger technique. A micropuncture needle was used and a 6-Slovenian sheath was placed and under fluoroscopic guidance, catheters and wires were exchanged in the ascending aorta. The right coronary artery was engaged using the Perfecto catheter. The left coronary artery was engaged using size 3.5 Justine catheter. I also tried size 4 and successfully the left coronary angiogram was obtained by Dr. Morales the on-call outsole leveler. The hemodynamics were obtained using the 3.5 6- Slovenian Justine catheter. The patient had some bradycardia after obtaining the right coronary angiogram and received 0.5 mg of atropine, and also had some chest tightness and we put nitroglycerin paste. At the end of the procedure, the patient is hemodynamically stable and comfortable at rest. He received 5 mg of verapamil per protocol and 3000 units of heparin. Total sedation time was 22 minutes. FINDINGS: 1. Hemodynamics: Left ventricular end-diastolic pressure was 14 mm. There is no significant gradient across the aortic valve. 2. Left ventriculogram: Left ventriculogram was not performed. 3. Angiographic data: a.Right coronary artery: Right coronary artery is a large dominant vessel, shows a focal 95% stenosis in the mid RCA. b.Left main coronary artery is a normal-sized vessel. In the distal left main, there is a 60% stenosis, divides into circumflex coronary artery and left anterior descending coronary artery. The ostial LAD has a focal 90% to 95% stenosis. There is mild nonobstructive plaque involving the ostial portion of the circumflex coronary artery also. CONCLUSION: Significant distal left main severe proximal LAD and mid RCA stenosis. PLAN: The patient is best treated with bypass surgery given the distal left main and the ostial LAD stenosis. I am going to ask Dr. Huynh, the on-call cardiothoracic surgeon, to evaluate the patient and proceed with surgery. We will start him back on IV heparin, nitroglycerin paste, aspirin, beta blockers, and YSABEL inhibitors along with statins. I will obtain a 2D echo on him to rule out significant valvular heart disease and to assess his LV function prior to surgery. I am hoping that the surgery will be done semi-electively early next week, but if he continues to have chest pain, surgeon is available to take him to surgery on an emergent basis. MMODL / IJN: [id number] /
[2022-01-31] MEDS: HEPARIN SODIUM 1,000 UN/ML (10ML VL) IV PRN (01:10)
[2022-01-31] MEDS ORDERED: NITROGLYCERIN SL TABS 0.4 MG TAB SUBLINGUAL ONE (03:42)
--- NOTE | 2022-01-31 07:38 | P.PN ---
Progress Note - Text Progress Note Date: 01/31/22 A 5 m walk test was completed with the patient with time 1: 2.52 seconds, time 2: 2.28 seconds, time 3: 2.15 seconds.
[2022-01-31] MEDS: ATORVASTATIN 40 MG TAB PO SCH (09:49)
[2022-01-31] MEDS ORDERED: ASPIRIN 325 MG TAB PO ONE (10:00)
[2022-01-31] MEDS ORDERED: METOPROLOL TARTRATE 12.5 MG TAB PO ONE (10:00)
[2022-01-31] MEDS ORDERED: ATORVASTATIN 10 MG TAB PO ONE (10:00)
[2022-01-31] MEDS ORDERED: ceFAZolin 1,000 MG in SODIUM CHLORIDE 0.9% IRRIGATIO 1,000 ML IRRIGATION ONE (10:00)
[2022-01-31] MEDS ORDERED: ALBUMIN HUMAN 25% 50 ML in EMPTY BAG 1 BAG IVPB ONE (10:00)
[2022-01-31] MEDS ORDERED: CHLORHEXIDINE GLUCONATE 15 ML CUP MUCOUS MEM ONE (10:00)
[2022-01-31] MEDS ORDERED: ALBUMIN HUMAN 5% 500 ML in EMPTY BAG 1 BAG IVPB ONE ×6 (10:00)
[2022-01-31] MEDS ORDERED: CLEVIDIPINE BUTYRATE 25 MG in EMPTY BAG 1 BAG IV SCH (10:00)
[2022-01-31] MEDS: ISOSORBIDE MONONITRATE ER 30 MG TAB.ER.24H PO SCH (10:15)
[2022-01-31] MEDS: METOPROLOL SUCCINATE (ER) 100 MG TAB.ER.24H PO SCH (10:15)
[2022-01-31] MEDS ORDERED: LACTATED RINGERS 1,000 ML IV ONE (10:28)
[2022-01-31] MEDS ORDERED: ONDANSETRON 4 MG/2 ML VIAL ONE (10:35)
[2022-01-31] MEDS ORDERED: HEPARIN SODIUM,PORCINE 5,000 UNIT in SODIUM CHLORIDE 0.9% 500 ML 500 ML IV ONE (11:00)
[2022-01-31] MEDS ORDERED: MANNITOL 25% 12.5 GM/50 ML VIAL IV ONE ×2 (11:00)
[2022-01-31] MEDS ORDERED: PAPAVERINE 360 MG in SODIUM CHLORIDE 0.9% 90 ML IV ONE ×2 (11:00→15:09)
[2022-01-31] MEDS ORDERED: ELECTROLYTE-A SOLUTION 1,000 ML with POTASSIUM CHLORIDE 40 MEQ, MAGNESIUM SULFATE 16 ME... IV SCH ×5 (11:00)
[2022-01-31] MEDS ORDERED: CALCIUM CHLORIDE 100 MG/ML 10 ML SYRINGE IVP ONE (11:00)
[2022-01-31] MEDS ORDERED: INSULIN REGULAR 100 UNIT in SODIUM CHLORIDE 0.9% 100 ML IV SCH ×2 (11:00→15:15)
[2022-01-31] MEDS ORDERED: ELECTROLYTE-A SOLUTION 1,000 ML with POTASSIUM CHLORIDE 100 MEQ, MAGNESIUM SULFATE 16 M... IV SCH ×5 (11:00)
[2022-01-31] MEDS ORDERED: NOREPINEPHRINE 4 MG in SODIUM CHLORIDE 0.9% 250 ML IV SCH (11:00)
[2022-01-31] MEDS ORDERED: TRANEXAMIC ACID 2,000 MG in SODIUM CHLORIDE 0.9% 80 ML IV ONE (11:00)
[2022-01-31] MEDS ORDERED: SODIUM BICARB 8.4% 50 ML SYR (1 MEQ/ML) IV ONE (11:00)
[2022-01-31] MEDS ORDERED: NITROGLYCERIN-D5W PMX 50 MG in DEXTROSE/WATER 1 250ML.BAG IV SCH ×2 (11:00→20:19)
[2022-01-31] MEDS ORDERED: MAGNESIUM SULFATE 16.24 MEQ in EMPTY SYRINGE 1 SYR IV ONE (11:00)
[2022-01-31] MEDS ORDERED: NITROGLYCERIN-D5W PMX 25 MG/250 ML BTL IV ONE (11:00)
[2022-01-31] MEDS ORDERED: PHENYLEPHRINE 10 MG/ML VIAL IV ONE (11:00)
[2022-01-31] MEDS ORDERED: PHENYLEPHRINE 40 MG in SODIUM CHLORIDE 0.9% 250 ML IV ONE (11:00)
[2022-01-31] MEDS ORDERED: HEPARIN SODIUM 1,000 UN/ML (10ML VL) IV ONE (11:00)
[2022-01-31] MEDS ORDERED: PROTAMINE SULFATE 250 MG in EMPTY BAG 1 BAG IV ONE (11:00)
[2022-01-31] MEDS ORDERED: DILTIAZEM 125 MG in SODIUM CHLORIDE 0.9% 100 ML IV SCH (11:00)
[2022-01-31] MEDS ORDERED: PROTAMINE SULFATE 10 MG/ML 25 ML VIAL IV ONE (11:00)
[2022-01-31] MEDS ORDERED: DEXAMETHASONE SOD PHOSPHATE 4 MG/ML 1 ML VIAL IVP ONE (11:11)
[2022-01-31] MEDS ORDERED: ONDANSETRON 4 MG/2 ML VIAL IVP ONE (11:11)
[2022-01-31] MEDS ORDERED: WATER FOR INJECTION, STERILE 10 ML VIAL IV ONE (13:02)
[2022-01-31] MEDS ORDERED: SODIUM BICARB 8.4% 50 ML SYR (1 MEQ/ML) ONE (13:02)
[2022-01-31] MEDS ORDERED: ceFAZolin 1,000 MG VIAL ONE (13:02)
[2022-01-31] MEDS ORDERED: VECURONIUM 10 MG VIAL IV ONE (13:02)
[2022-01-31] MEDS ORDERED: MAGNESIUM SULFATE 4 MEQ/ML 10ML VIAL ONE (13:02)
[2022-01-31] MEDS ORDERED: ESMOLOL 100 MG/10 ML VIAL ONE (13:02)
[2022-01-31] MEDS ORDERED: SODIUM CHLORIDE 0.9% IRRIG 1,000 ML BTL IRRIGATION ONE (13:02)
[2022-01-31] MEDS ORDERED: SUFentanil 50 MCG/ML 1 ML AMP IV ONE (13:02)
[2022-01-31] MEDS ORDERED: SODIUM CHLORIDE 0.9% 100 ML BAG ONE (13:02)
[2022-01-31] MEDS ORDERED: LIDOCAINE 2% SYG (PF) 100 MG/5 ML ONE (13:02)
[2022-01-31] MEDS ORDERED: PROTAMINE SULFATE 10 MG/ML 5 ML VIAL IV ONE (13:02)
[2022-01-31] MEDS ORDERED: PROPOFOL 10 MG/ML 20 ML VIAL IV ONE (13:02)
[2022-01-31] MEDS ORDERED: CALCIUM CHLORIDE 100 MG/ML 10 ML SYRINGE ONE (13:02)
[2022-01-31] MEDS ORDERED: ALBUMIN HUMAN 5% (25gm) 500 ML VIAL IVPB ONE (13:02)
[2022-01-31] MEDS ORDERED: NITROGLYCERIN-D5W PMX 50 MG/250 ML BOTTLE IV ONE (13:02)
[2022-01-31] MEDS ORDERED: ELECTROLYTE-R (PH 7.4) 1,000 ML IV.SOLN IV ONE (13:02)
[2022-01-31] MEDS ORDERED: fentaNYL (PF) 50 MCG/ML 50 ML VIAL ONE (13:02)
[2022-01-31] MEDS ORDERED: MIDAZOLAM HCL 10 MG/10 ML VIAL ONE (13:02)
[2022-01-31] MEDS ORDERED: METOPROLOL TARTRATE 5 MG/5 ML VIAL IVP ONE (13:02)
[2022-01-31] MEDS ORDERED: INSULIN REGULAR 100 UNIT/ML VIAL (IV) ONE (13:02)
[2022-01-31] MEDS ORDERED: HEPARIN SODIUM,PORCINE 10,000 UNIT/ML 1 ML VIAL ONE (13:02)
--- NOTE | 2022-01-31 13:38 | P.CNPUL ---
History of Present Illness Consult date: 01/31/22 Requesting physician: Abhijit Garsia Reason for consult: other Chief complaint: Coronary disease. History of present illness: Pulmonary consult dated 01/31/2022. 71-year-old male who presented to the emergency department on January 29, complaining of chest pain for 3 days. The patient was going on for 3 days prior to admission. It was clearly exertional in nature. He apparently initially noted when he was loading a drywall into his truck. When he sat down, the symptoms would resolve. He did have some mild shortness of breath along with it. No radiation of the pain. He had a heart catheterization in 2014, and apparently had a small blockage that did not need a stent at that time. The patient was admitted with an acute non-ST segment elevation myocardial infarction. Apparently, the patient had a cardiac catheterization, although I do not see the operative report, and the patient is scheduled to have bypass grafting later today. I introduced myself to the patient, and told him that my job was to initially, get the patient extubated from mechanical ventilation, and then secondly, the follow the patient, throughout his hospitalization, to make sure that his lungs are healthy. The patient does not have a history of any lung issues. He did smoke in the distant past. 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 Laboratory data from yesterday shows a white count of 4.9, hemoglobin 13.6, hematocrit 39.7, and a platelet count of 182,000. Sodium 136, potassium 4.2, chlorides 102, CO2 26, BUN 20, creatinine 0.89. Chest CT showed atherosclerotic vascular disease, without any suspicious pulmonary masses or lesion. Review of Systems REVIEW OF SYSTEMS: CONSTITUTIONAL: [Negative.] NEUROLOGIC: [ Negative.] HEENT: [ Negative.] CARDIAC: Chest pain. PULMONARY: Mild shortness of breath with the chest pain. GI: [Negative.] : [Negative.] RHEUMATOLOGIC: [ Negative.] IMMUNOLOGIC: [ Negative.] ENDOCRINE: [Negative. ] DERMATOLOGIC: [Negative.] Past Medical History Past Medical History: Hyperlipidemia, Hypertension, Sleep Apnea/CPAP/BIPAP History of Any Multi-Drug Resistant Organisms: None Reported Past Surgical History: Orthopedic Surgery, Tonsillectomy Additional Past Surgical History / Comment(s): LEFT SHOULDER ROTATOR CUFF, DMITRIY CATARACTS WITH IMPLANTS, LEFT WRIST ORIF, COLONOSCOPY, and vasectomy Past Anesthesia/Blood Transfusion Reactions: No Reported Reaction Past Psychological History: Anxiety Smoking Status: Never smoker (Quit smoking 8 years ago) Past Alcohol Use History: None Reported Past Drug Use History: Marijuana - Past Family History Mother Family Medical History: Cancer Additional Family Medical History / Comment(s): COLON Father Family Medical History: Myocardial Infarction ([place]) Additional Family Medical History / Comment(s): Father had a myocardial infarction at age 45 Medications and Allergies Home Medications Medication Instructions Recorded Confirmed Type Isosorbide Mononitrate [Isosorbide 30 mg PO DAILY 06/30/15 01/29/22 History Mononitrate ER] Aspirin EC [Ecotrin Low Dose] 81 mg PO DAILY 01/29/22 01/29/22 History HYDROcodone/APAP 10-325MG [Nocona 1 tab PO TID PRN 01/29/22 01/29/22 History 10-325] LORazepam [Ativan] 0.5 mg PO HS PRN 01/29/22 01/29/22 History Metoprolol Succinate (ER) [Toprol 100 mg PO DAILY 01/29/22 01/29/22 History Xl] Allergies Allergy/AdvReac Type Severity Reaction Status Date / Time No Known Allergies Allergy Verified 01/31/22 11:03 Physical Exam Osteopathic Statement: *. No significant issues noted on an osteopathic structural exam other than those noted in the History and Physical/Consult. Vitals: Vital Signs Temp Pulse Resp BP BP Pulse Ox 01/31/22 10:32 158/80 01/31/22 10:30 98.0 F 70 18 186/91 97 01/31/22 08:00 97.5 F L 65 18 169/83 96 01/31/22 03:55 68 128/68 01/31/22 03:35 97.6 F 77 18 163/90 182/86 97 01/30/22 23:50 70 140/80 01/30/22 23:45 70 150/84 01/30/22 23:20 97.6 F 66 16 185/95 97 01/30/22 19:25 98.2 F 60 14 115/70 96 01/30/22 16:00 98.3 F 57 L 16 114/69 95 01/30/22 15:46 57 L 16 114/69 95 01/30/22 14:46 60 18 116/70 96 01/30/22 14:00 62 18 Intake and Output 01/30/22 01/31/22 01/31/22 22:59 06:59 14:59 Intake Total 273.356 22.75 100 Output Total 200 Balance 273.356 -177.25 100 Intake: IV 100 Intake, IV Titration 33.356 22.75 Amount Heparin Sod,Pork in 0.45% 33.356 22.75 NaCl 25,000 unit In 0.45 % NaCl 1 250ml.bag @ 9. 186 UNITS/KG/HR 10 mls/hr IV .Q24H TONIA Rx#: [id number] Oral 240 Output: Urine 200 Other: Voiding Method Toilet # Voids 1 1 No acute distress, oriented 3. Currently not on any supplemental oxygen. HEENT examination is grossly unremarkable. Neck supple. Full range of motion. No adenopathy thyromegaly or neck vein distention. Cardiovascular examination reveals regular rhythm rate. S1-S2 normal. No S3 or S4. No discernible murmur noted. Heart rate 70 bpm. Lungs reveal clear breath sounds. Breath sounds are equal bilaterally. No adventitious lung sounds including wheezes rhonchi or crackles. Abdomen soft bowel sounds are heard. No masses or tenderness. Extremities are intact. No cyanosis clubbing or edema. Skin is without rash or lesion. Neurologic examination is brief but nonfocal. Results - Laboratory Findings CBC and BMP: 01/30/22 04:36 01/30/22 04:36 PT/INR, D-dimer PT 11.5 sec (9.0-12.0) 01/30/22 04:36 INR 1.1 (<1.2) 01/30/22 04:36 Abnormal lab findings: Abnormal Labs 01/29/22 01/29/22 01/29/22 13:37 13:37 18:05 APTT Sodium BUN 26 H Glucose 107 H Hemoglobin A1c Troponin I 0.104 H* 0.166 H* Triglycerides VLDL Cholesterol, Calc HDL Cholesterol Crossmatch 01/29/22 01/30/22 01/30/22 20:59 04:36 04:36 APTT 67.2 H Sodium 136 L BUN Glucose 106 H Hemoglobin A1c Troponin I 0.258 H* Triglycerides VLDL Cholesterol, Calc HDL Cholesterol Crossmatch 01/30/22 01/30/22 01/30/22 04:36 04:36 12:35 APTT Sodium BUN Glucose Hemoglobin A1c 6.1 H Troponin I Triglycerides 209.00 H VLDL Cholesterol, Calc 41.80 H HDL Cholesterol 38.40 L Crossmatch See Detail 01/30/22 01/30/22 14:01 17:34 APTT >200.0 H* 113.2 H* Sodium BUN Glucose Hemoglobin A1c Troponin I Triglycerides VLDL Cholesterol, Calc HDL Cholesterol Crossmatch - Diagnostic Findings Chest x-ray: image reviewed CT scan - chest: image reviewed Assessment and Plan Assessment: Acute non-ST segment elevation myocardial infarction. Significant coronary artery disease, with anticipated bypass grafting, 01/31/2022. History of hypertension. History of hyperlipidemia. No history of any significant pulmonary disease at this time. Plan: Plan dated 01/31/2022. The patient's on function were excellent. He should do well with surgery. He has no significant pulmonary disease to speak of. Did explain my role in the process, he understands that first, the goal is to get him extubated from mechanical ventilation. Second, we will see the patient on a daily and ongoing basis, to make sure that his long stay healthy, and attempt to avoid pneumonia, pleural effusion, atelectasis, lobar collapse.
--- NOTE | 2022-01-31 13:40 | US ---
EXAMINATION TYPE: US vein mapping BIL DATE OF EXAM: 01/30/2022 1:21 PM COMPARISON: NONE CLINICAL HISTORY: Pre-Op Cardiac Surgery. pre bypass tomorrow SIDE PERFORMED: Bilateral TECHNIQUE: Lower extremity saphenous vein is examined and measured utilizing real time linear array sonography. Patient History: Smoker: n Heart Disease: n Previous DVT: n Vascular Surgery: n Discoloration: n Hypertension: y Diabetes: n Paralysis: n Varicosities: n Edema: n DUPLEX FINDINGS: Greater Saphenous: Color flow seen Measurements in mm: Right Greater Saphenous: Groin: 6.0 x 8.0 mm High Thigh: 3.5 x 2.6 mm Mid Thigh: 2.8 x 3.1 mm Above Knee: 3.3 x 4.0 mm Knee: 3.2 x 3.9 mm Below Knee: 2.9 x 3.5 mm Mid Calf: 1.8 x 1.9 mm At Ankle: 1.9 x 2.6 mm Left Greater Saphenous: Groin: 8.0 x 7.5 mm High Thigh: 6.3 x 7.3 mm Mid Thigh: 4.1 x 4.3 mm Above Knee: 4.1 x 5.0 mm Knee: 4.2 x 4.2 mm Below Knee: 3.1 x 3.8 mm Mid Calf: 2.7 x 3.0 mm At Ankle: 2.9 x 4.4 mm IMPRESSION: 1. Bilateral GSV measurements listed above. 2. Performing surgeon to determine viability as conduit.
--- NOTE | 2022-01-31 13:41 | US ---
EXAMINATION TYPE: Pre-Operative Non-Invasive Evaluation of the hand for Potential Radial Artery Swati , Measurements only DATE OF EXAM: 01/30/2022 12:53 PM CLINICAL HISTORY: Pre-Op Cardiac Surgery. pre bypass tomorrow SIDE PERFORMED: Left TECHNIQUE: Radial artery is measured utilizing real time linear array sonography. Dominant hand: Right Duplex Findings: Radial Artery: Color flow seen Measurements in mm, transverse view: Right Radial: right heat cath Left Radial: Proximal: 2.1 x 2.0 mm Mid: 1.5 x 1.6 mm Distal: 1.5 x 1.5 mm IMPRESSION: 1. Left upper extremity radial artery measurements listed above. 2. Performing surgeon to determine viability as conduit.
--- NOTE | 2022-01-31 13:41 | US ---
EXAMINATION TYPE: Pre-Operative Non-Invasive Evaluation of the hand for Potential Radial Artery wSati , Measurements only DATE OF EXAM: 01/30/2022 12:53 PM CLINICAL HISTORY: Pre-Op Cardiac Surgery. pre bypass tomorrow SIDE PERFORMED: Left TECHNIQUE: Radial artery is measured utilizing real time linear array sonography. Dominant hand: Right Duplex Findings: Radial Artery: Color flow seen Measurements in mm, transverse view: Right Radial: right heat cath Left Radial: Proximal: 2.1 x 2.0 mm Mid: 1.5 x 1.6 mm Distal: 1.5 x 1.5 mm IMPRESSION: 1. Left upper extremity radial artery measurements listed above. 2. Performing surgeon to determine viability as conduit.
[2022-01-31 13:49] LABS: ABG Base Excess 1.2 mmol/L; ABG Glucose Whole Blood 127 mg/dL (75-99); ABG HCO3 28 mmol/L (21-25); ABG Hematocrit 43 % (34.0-46.0); ABG Ionized Calcium 4.8 mg/dL (4.5-5.3); ABG Lactic Acid Whole Blood 0.8 mmol/L (0.5-1.6); ABG Oxygen Saturation 99.5 % (94-97); ABG PCO2 50 mmHg (35-45); ABG PH 7.35 (7.35-7.45); ABG PO2 264 mmHg (83-108); ABG Potassium Whole Blood 4.7 mmol/L (3.4-4.5); ABG Sodium Whole Blood 139 mmol/L (135-146); ABG TCO2 29 mmol/L (19-24)
[2022-01-31] MEDS ORDERED: DEXTROSE 50% SYRINGE 50 ML IVP PRN ×2 (15:04)
[2022-01-31] MEDS ORDERED: SODIUM CHLORIDE 0.9% 500 ML 500 ML with HEPARIN SODIUM,PORCINE 5,000 UNIT IV ONE ×2 (15:08)
[2022-01-31] MEDS ORDERED: ceFAZolin 1,000 MG in SODIUM CHLORIDE 0.9% 1,000 ML IRRIGATION ONE (15:09)
[2022-01-31 15:16] LABS: ABG Base Excess -0.2 mmol/L; ABG Glucose Whole Blood 149 mg/dL (75-99); ABG HCO3 25 mmol/L (21-25); ABG Hematocrit 40 % (34.0-46.0); ABG Ionized Calcium 4.7 mg/dL (4.5-5.3); ABG Lactic Acid Whole Blood 1.4 mmol/L (0.5-1.6); ABG Oxygen Saturation 98.5 % (94-97); ABG PCO2 40 mmHg (35-45); ABG PO2 126 mmHg (83-108); ABG Sodium Whole Blood 137 mmol/L (135-146); ABG TCO2 26 mmol/L (19-24)
[2022-01-31 16:21] LABS: ABG Base Excess -3.5 mmol/L; ABG Glucose Whole Blood 162 mg/dL (75-99); ABG HCO3 25 mmol/L (21-25); ABG Hematocrit 37 % (34.0-46.0); ABG Ionized Calcium 4.7 mg/dL (4.5-5.3); ABG Lactic Acid Whole Blood 1.6 mmol/L (0.5-1.6); ABG Oxygen Saturation 99.5 % (94-97); ABG PCO2 59 mmHg (35-45); ABG PH 7.23 (7.35-7.45); ABG PO2 325 mmHg (83-108); ABG Potassium Whole Blood 4.5 mmol/L (3.4-4.5); ABG Sodium Whole Blood 139 mmol/L (135-146); ABG TCO2 27 mmol/L (19-24)
[2022-01-31 17:24] LABS: ABG Glucose Whole Blood 145 mg/dL (75-99); ABG HCO3 23 mmol/L (21-25); ABG Hematocrit 34 % (34.0-46.0); ABG Ionized Calcium 4.5 mg/dL (4.5-5.3); ABG Lactic Acid Whole Blood 1.1 mmol/L (0.5-1.6); ABG PCO2 46 mmHg (35-45); ABG PH 7.31 (7.35-7.45); ABG PO2 159 mmHg (83-108); ABG Potassium Whole Blood 4.3 mmol/L (3.4-4.5); ABG Sodium Whole Blood 139 mmol/L (135-146); ABG TCO2 25 mmol/L (19-24)
[2022-01-31 18:12] LABS: ABG Base Excess -1.9 mmol/L; ABG Glucose Whole Blood 145 mg/dL (75-99); ABG HCO3 24 mmol/L (21-25); ABG Hematocrit 32 % (34.0-46.0); ABG Lactic Acid Whole Blood 1.6 mmol/L (0.5-1.6); ABG Oxygen Saturation 99.7 % (94-97); ABG PCO2 42 mmHg (35-45); ABG PH 7.36 (7.35-7.45); ABG PO2 288 mmHg (83-108); ABG Potassium Whole Blood 4.1 mmol/L (3.4-4.5); ABG Sodium Whole Blood 139 mmol/L (135-146); ABG TCO2 25 mmol/L (19-24)
[2022-01-31 18:39] LABS: ABG Base Excess -1.7 mmol/L; ABG Glucose Whole Blood 127 mg/dL (75-99); ABG HCO3 24 mmol/L (21-25); ABG Hematocrit 34 % (34.0-46.0); ABG Ionized Calcium 5.1 mg/dL (4.5-5.3); ABG Lactic Acid Whole Blood 1.5 mmol/L (0.5-1.6); ABG Oxygen Saturation 99.8 % (94-97); ABG PCO2 45 mmHg (35-45); ABG PH 7.34 (7.35-7.45); ABG PO2 309 mmHg (83-108); ABG Potassium Whole Blood 3.9 mmol/L (3.4-4.5); ABG Sodium Whole Blood 141 mmol/L (135-146); ABG TCO2 26 mmol/L (19-24)
[2022-01-31 19:11] LABS: ABG Base Excess -1.3 mmol/L; ABG Glucose Whole Blood 128 mg/dL (75-99); ABG HCO3 25 mmol/L (21-25); ABG Hematocrit 33 % (34.0-46.0); ABG Ionized Calcium 4.9 mg/dL (4.5-5.3); ABG Lactic Acid Whole Blood 1.6 mmol/L (0.5-1.6); ABG Oxygen Saturation 99.8 % (94-97); ABG PCO2 46 mmHg (35-45); ABG PH 7.34 (7.35-7.45); ABG PO2 289 mmHg (83-108); ABG Potassium Whole Blood 4.4 mmol/L (3.4-4.5); ABG Sodium Whole Blood 140 mmol/L (135-146); ABG TCO2 26 mmol/L (19-24)
[2022-01-31 19:24] LABS: ABG Ionized Calcium 6.4 mg/dL (4.5-5.3)
[2022-01-31 20:17] LABS: Glucose,Whole Blood 147 mg/dL (70-110)
[2022-01-31] MEDS ORDERED: ALBUMIN HUMAN 5% 250 ML in EMPTY BAG 1 BAG IVPB PRN (20:19)
[2022-01-31] MEDS ORDERED: Magnesium Replacement Protocol 1 EACH MISC MISCELLANE PRN (20:19)
[2022-01-31] MEDS ORDERED: DEXTROSE 5% IN WATER 100 ML with AMIODARONE 150 MG IV PRN (20:19)
[2022-01-31] MEDS ORDERED: BENZOCAINE/MENTHOL LOZENG 1 EACH LOZENGE MUCOUS MEM PRN (20:19)
[2022-01-31] MEDS ORDERED: AMIODARONE 450 MG in DEXTROSE 5% IN WATER 250 ML IV PRN ×2 (20:19)
[2022-01-31] MEDS ORDERED: ONDANSETRON 4 MG/2 ML VIAL IVP PRN (20:19)
[2022-01-31] MEDS ORDERED: Phosphorus Replacement Protoco 1 EACH MISC MISCELLANE PRN (20:19)
[2022-01-31] MEDS ORDERED: CALCIUM GLUCONATE IN NACL 2 GM in SALINE 1 100ML.BAG IVPB PRN (20:19)
[2022-01-31] MEDS ORDERED: hydrALAZINE HCL 20 MG/ML 1 ML VIAL IVP PRN (20:19)
[2022-01-31] MEDS ORDERED: Potassium Replacement Protocol 1 EACH MISC MISCELLANE PRN (20:19)
[2022-01-31] MEDS ORDERED: AMIODARONE 360 MG in DEXTROSE 5% IN WATER 200 ML IV PRN ×2 (20:19)
[2022-01-31] MEDS ORDERED: METOCLOPRAMIDE 5 MG/ML 2 ML VIAL IVP PRN (20:19)
[2022-01-31] MEDS ORDERED: IPRATROPIUM-ALBUTEROL 3 ML NEB INHALATION PRN (20:19)
[2022-01-31] MEDS ORDERED: ALBUMIN HUMAN 5% 250 ML IVPB ONE (20:20)
--- NOTE | 2022-01-31 20:20 | P.ANPRN ---
Procedure Note - Anesthesia - Invasive Line Right Central Line Time Out Performed: Yes (1222) Date of Procedure: 01/31/22 Time of Procedure: 12:22 Location of Patient: PreOp Preparation: Sterile Prep, Sterile Dressing Ultrasound Used: Yes Purpose - Visualization and Identification of Vasculature: Yes Image Stored and Saved: Yes Narrative: Central line placement per sterile protocol utilized. Informed consent obtained. Central line placement per sterile protocol utilized. Right Internal jugular vein cannulated under aseptic precautions. 3cc 1% lidocaine infiltrated initially after cleaning with iodine based prep and draping. Ultrasound used to locate the vein and selginger technique used. 9Fr introduced sheath inserted and after the finding the needle with dispatcher ship pilot needle/catheter. After the insertion of PA Catheter, the line is dressed with biopatch and tegaderm. Patient tolerated the procedure well. Right [place] Noe Time Out Performed: Yes Location of Patient: PreOp Preparation: Sterile Prep, Sterile Dressing Narrative: Central line placement per sterile protocol utilized. 8Ff PA catheter threaded through the Right IJ introducer sheath under asepsis with continuous waveform monitoring. Catheter at 54 cms alex. - LOLI Intraop Pre Bypass LOLI Intraop - Anesthesia Indication: Coronary artery bypass graft off-pump surgery Date of Procedure: 01/31/22 Pre-operative Diagnosis: Coronary artery disease Post-operative Diagnosis: Coronary artery disease status post CABG Surgeon: Faisal Huynh Left Ventricle: Ejection fraction 50-55% no obvious regional motion abnormalities noted Ejection Fraction: Normal Regional Wall Motion Abnormalities: None Left Ventricle Hypertrophy: No R. Ventricle Function: Normal Anatomy: Trileaflet Aortic Stenosis: None Aortic Regurgitation: Trace Other Findings: Mean gradient 3 mmHg max gradient 6 mmHg Mitral Stenosis: None Mitral Regurgitation: Trace Tricuspid Stenosis: None Tricuspid Regurgitation: Trace Pulmonic Stenosis: None R. Atrial Dilation: No R. Atrial PFO: No L. Atrial Dilation: No Aorta: Grade 1 to 2 atherosclerosis seen Aortic Dissection: No Aortic Calcification: None Plural Effusion: None - LOLI Intraop Post Bypass LOLI Intraop Post Bypass Procedure Performed: Coronary artery bypass graft Left Ventricle: Ejection fraction 50-55%. No regional wall motion abnormalities noted Ejection Fraction: Normal Regional Wall Motion Abnormalities: None R. Ventricle Function: Normal Aortic Valve: Unchanged Mitral Valve: Unchanged Tricuspid: Unchanged Pulmonic: Unchanged Aortic Dissection: No
--- NOTE | 2022-01-31 20:24 | P.OP ---
Date of Procedure: 01/31/22 Preoperative Diagnosis: 3v CAD Postoperative Diagnosis: Same Procedure(s) Performed: 1. Off pump coronary artery bypass grafting x 3. Left internal mammary artery to left anterior descending artery, saphenous vein to 1st obtuse marginal artery, saphenous vein to posterior descending artery. 2. Left atrial appendage ligation with #35 AtriClip 3. Trans-esophageal echo 4. Endoscopic bilteral saphenous vein harvest 5. Graft flow measurements using medi-stim system Implants: Left Atrial Clip #35 Anesthesia: GETA Surgeon: Faisal Huynh [employer] #1: Kwasi Pierce [employer] #2: Homar Bobo Estimated Blood Loss (ml): 1,000 Pathology: none sent Condition: stable Disposition: ICU Indications for Procedure: This patient 71 year-old male who presented to the hospital with chest pain and noted to have NSTEMI. Coronary angiography showed distal left main coronary artery disease as well as a tight lesion in the LAD as well as the right coronary artery consistent with 3v disease. The patient is an otherwise good candidate for surgical revascularization and this was recommended. All risks, benefits and alternatives to the procedure were discussed with the patient and he was in agreement to proceed. The sts risk score was discussed with the patient as well. Operative Findings: Final Graft Flow Measurement LIND-LAD 22ml/min, P.I. 4.2 SVG-PDA 41ml/min, P.I. 2.9 SVG-OM1 18ml/min, P.I. 1.1 Description of Procedure: The patient underwent cental line, aterial line and swan flex catheter placement in the pre-operative suite. He was brought back to the operating room and placed in the supine position. General endotracheal anesthesia was induced and he was prepped from the chin to the ankles in the usual sterile fashion. Antibiotics were given and a time-out was performed. I opened the midline sternum and performed a sternotomy. Hemostasis on the bone was achieved using electrocautery. The left pleura was incised and the left internal thoracic artery was harvested in a skeletonized fashion. Simulataneously an virtual customer assistant endoscopically harvested bilateral saphenous veins. The patient was systemically heparinized and the AZ was transected and placed in a papaverine jacuzzi. A left sided chest tube was placed. The pericardium was opened in a T-fashion and a pericardial cradle was created. Stay sutures were placed and a 35mm AtriClip was placed on the left atrial appendage. The pericardium was incised making sure not to injure the phrenic nerve to create a pathway for the AZ. Once the ACT > 250, the left anterior descending artery was stabilized and an arteriotomy was performed. 1.75mm flow through was inserted. An end to side anastomosis was created between the LIND and LAD using a running 7-0 prolene. Next the inferior wall of the heart was exposed and the posterior descending artery was identified and stabilized. The saphenous vein was prepared and an ateriotomy was made in the PDA and a 1.5mm flow through was placed. An end to side anastomosis was created between the SV and PDA using a running 7-0. This was then fastened to the ascending aorta using a running 5-0 prolene and heartstring device. Next the lateral wall was exposed and the 1st obtuse marginal artery was identified and stabilized. It was somewhat tortuous proximally and difficult to insert a shunt. I was able to finally to insert a 1mm shunt. Part of the anastomosis was done without shunt. An end to side anastomosis was performed with saphenous vein to obtuse marginal using a running 7-0 prolene. The proximal was attached to the aorta using a running 5-0 prolene and heartstring device. Finally the graft flow measurements were measured and there was good flow in the LIND-LAD and SV-PDA however there appeared to be no flow in the SV-OM graft. At this point the graft was opened and probed but this was unsuccessful. I then ligated the vein near the distal anastomosis with two clip and a prolene. The OM was dissected out 1cm distally with the octopus stabilizer and a new arteriorotmy was performed and a 1.5mm flow through was inserted. An end to side with a new piece of vein was created using 7-0 prolene. The proximal end of this new graft was connected to the previous proximal vein in an end to end fashion using running 6-0 prolene. This time the graft was patent and checked with a flow probe. Protamine was given for reversal. Everything was checked for hemostasis. A chest tube was placed in the mediastinum and benny in the right pleura. Two ventricular wires were placed on the anterior RV surface. The chest was closed with cables and 1 wire. The subcutaneous tissues of the sternum and bilateral legs were closed in layers. The patient tolerated the procedure well without any prolonged period of hypotension. He was transferred to ICU in stable condition without the need for tranfusion or ionotropes. Post-op LOLI revealed good wall motion in all [place].
[2022-01-31 20:38] LABS: ABG Base Excess -1.6 mmol/L; ABG HCO3 25 mmol/L (21-25); ABG Oxygen Saturation 99.8 % (94-97); ABG PCO2 50 mmHg (35-45); ABG PH 7.31 (7.35-7.45); ABG PO2 217 mmHg (83-108); ABG TCO2 26 mmol/L (19-24); Allen Test Performed? Yes
[2022-01-31] MEDS: CLEVIDIPINE BUTYRATE 25 MG in EMPTY BAG 1 BAG IV SCH ×2 (20:45→23:37)
[2022-01-31] MEDS ORDERED: CLEVIDIPINE BUTYRATE 25 MG/50 ML VIAL IV ONE (20:46)
[2022-01-31 20:47] LABS: Basophils % (A) 0 %; Eosinophils % (A) 0 %; HCT 30.5 % (39.0-53.0); Ionized Calcium 5.1 mg/dL (4.5-5.3); Lymphocytes # (A) 0.8 k/uL (1.0-4.8); Lymphocytes % (A) 9 %; MCH 29.4 pg (25.0-35.0); MCHC 33.7 g/dL (31.0-37.0); MCV 87.4 fL (80.0-100.0); Mean Platelet Volume 8.5; Monocytes # (A) 0.4 k/uL (0-1.0); Monocytes % (A) 5 %; Neutrophils # (A) 7.8 k/uL (1.3-7.7); Neutrophils % (A) 85 %; Platelet Count 128 k/uL (150-450); RBC 3.49 m/uL (4.30-5.90); WBC 9.1 k/uL (3.8-10.6)
[2022-01-31 20:51] LABS: HGB 10.3 gm/dL (13.0-17.5)
[2022-01-31 20:52] LABS: INR 1.3 (<1.2); Partial Thromboplastin Time 28.3 sec (22.0-30.0); Prothrombin Time 13.2 sec (9.0-12.0)
[2022-01-31] MEDS: IPRATROPIUM-ALBUTEROL 3 ML NEB INHALATION SCH ×2 (20:54→22:52)
[2022-01-31 20:57] LABS: ALT 21 U/L (4-49); AST 36 U/L (17-59); African American GFR (CKD) >90 (>60 ml/min/1.73 sqM); Alkaline Phosphatase 34 U/L (38-126); Anion Gap 8 mmol/L; Blood Urea Nitrogen 16 mg/dL (9-20); Calcium 8.2 mg/dL (8.4-10.2); Carbon Dioxide 22 mmol/L (22-30); Chloride 105 mmol/L (98-107); Glucose 131 mg/dL (74-99); Magnesium 1.8 mg/dL (1.6-2.3); Non-African American GFR(CKD) 90 (>60 ml/min/1.73 sqM); Potassium 4.4 mmol/L (3.5-5.1); Sodium 135 mmol/L (137-145); Total Bilirubin 2.2 mg/dL (0.2-1.3); Total Protein 4.7 g/dL (6.3-8.2)
--- NOTE | 2022-01-31 21:06 | XR ---
EXAMINATION TYPE: XR chest 1V portable DATE OF EXAM: 01/31/2022 8:35 PM COMPARISON: Chest radiographs from 01/29/2022 TECHNIQUE: XR chest 1V portable Frontal and lateral views of the chest. CLINICAL INDICATION:Male, 71 years old with history of Post Operative Cardiac Surgery; FINDINGS: Lungs/Pleura: There is no evidence of pleural effusion, focal consolidation, or pneumothorax. Pulmonary vascularity: Unremarkable. Heart/mediastinum: Cardiomediastinal silhouette is unremarkable. Left atrial appendage occlusion caroline ce is present. Musculoskeletal: No acute osseous pathology. Midline sternotomy wires are noted. Lines/Tubes: Endotracheal tube with distal tip 6.0 cm above the shreyas Nasogastric tube with its distal tip and side-port projecting under the diaphragm. Ventriculoperitoneal shunt tubing noted along the right aspect of the radiograph. Drainage tubes with tips projecting over the mediastinum. Left thoracotomy tube is present without evidence of pneumothorax. IMPRESSION: Post surgical changes with lines and tubes as described above
[2022-01-31] MEDS: ACETAMINOPHEN IV (For NPO) 1,000 MG in EMPTY BAG 1 BAG IVPB SCH (21:13)
[2022-01-31 21:42] LABS: Glucose,Whole Blood 157 mg/dL (70-110)
[2022-01-31] MEDS: HEPARIN SODIUM,PORCINE/PF 5,000 UNIT/0.5 ML SYRINGE SQ SCH (22:17)
[2022-01-31] MEDS: MUPIROCIN 2% OINT 22 GM TUBE NASAL SCH (22:18)
[2022-01-31] MEDS ORDERED: METOPROLOL TARTRATE 12.5 MG TAB PO STA (22:29)
[2022-01-31] MEDS: DEXMEDETOMIDINE/0.9% NACL(PMX) 400 MCG in EMPTY BAG 1 BAG IV SCH (22:36)
[2022-01-31] MEDS: LACTATED RINGERS 1,000 ML IV SCH (22:58)
[2022-01-31 23:01] LABS: Glucose,Whole Blood 192 mg/dL (70-110)
[2022-01-31 23:16] LABS: Basophils % (A) 0 %; Eosinophils % (A) 0 %; HCT 31.8 % (39.0-53.0); HGB 11.4 gm/dL (13.0-17.5); Lymphocytes # (A) 2.1 k/uL (1.0-4.8); Lymphocytes % (A) 11 %; MCH 31.6 pg (25.0-35.0); MCHC 35.8 g/dL (31.0-37.0); MCV 88.2 fL (80.0-100.0); Mean Platelet Volume 8.4; Monocytes # (A) 1.1 k/uL (0-1.0); Monocytes % (A) 6 %; Neutrophils % (A) 81 %; Platelet Count 212 k/uL (150-450); RBC 3.61 m/uL (4.30-5.90); WBC 18.4 k/uL (3.8-10.6)
[2022-01-31 23:31] LABS: Allen Test Performed? Yes
[2022-02-01 00:09] LABS: Glucose,Whole Blood 170 mg/dL (70-110)
[2022-02-01 00:20] LABS: ABG HCO3 23 mmol/L (21-25); ABG PCO2 50 mmHg (35-45); ABG PH 7.28 (7.35-7.45); ABG PO2 66 mmHg (83-108); ABG TCO2 25 mmol/L (19-24)
[2022-02-01 00:21] LABS: ABG Base Excess -3.6 mmol/L
[2022-02-01] MEDS ORDERED: Magnesium Replacement Protocol 1 EACH MISC MISCELLANE PRN (00:51)
[2022-02-01] MEDS: MAGNESIUM SULFATE-D5W PMX 1 GM in DEXTROSE/WATER 1 100ML.BAG IVPB SCH ×2 (01:21→02:27)
[2022-02-01 01:28] LABS: Glucose,Whole Blood 143 mg/dL (70-110)
[2022-02-01 02:13] LABS: Glucose,Whole Blood 165 mg/dL (70-110)
[2022-02-01] MEDS: ACETAMINOPHEN IV (For NPO) 1,000 MG in EMPTY BAG 1 BAG IVPB SCH (02:28)
[2022-02-01] MEDS ORDERED: HYDROcodone/APAP 5-325MG 1 EACH TAB PO PRN ×2 (02:58→02:59)
[2022-02-01 03:13] LABS: Glucose,Whole Blood 162 mg/dL (70-110)
[2022-02-01] MEDS: HEPARIN SODIUM,PORCINE/PF 5,000 UNIT/0.5 ML SYRINGE SQ SCH ×3 (04:01→20:09)
[2022-02-01 04:10] LABS: Glucose,Whole Blood 143 mg/dL (70-110)
[2022-02-01 04:11] LABS: Basophils % (A) 0 %; Eosinophils % (A) 0 %; HCT 30.5 % (39.0-53.0); HGB 10.4 gm/dL (13.0-17.5); Lymphocytes # (A) 0.6 k/uL (1.0-4.8); Lymphocytes % (A) 6 %; MCH 29.7 pg (25.0-35.0); MCHC 34.2 g/dL (31.0-37.0); MCV 86.8 fL (80.0-100.0); Mean Platelet Volume 8.8; Monocytes # (A) 0.6 k/uL (0-1.0); Monocytes % (A) 6 %; Neutrophils # (A) 9.1 k/uL (1.3-7.7); Neutrophils % (A) 87 %; Platelet Count 146 k/uL (150-450); RBC 3.51 m/uL (4.30-5.90); WBC 10.5 k/uL (3.8-10.6)
[2022-02-01 04:14] LABS: Ionized Calcium 4.8 mg/dL (4.5-5.3)
[2022-02-01 04:25] LABS: ALT 25 U/L (4-49); AST 61 U/L (17-59); African American GFR (CKD) >90 (>60 ml/min/1.73 sqM); Albumin 3.4 g/dL (3.5-5.0); Alkaline Phosphatase 39 U/L (38-126); Anion Gap 9 mmol/L; Blood Urea Nitrogen 16 mg/dL (9-20); Calcium 8.1 mg/dL (8.4-10.2); Carbon Dioxide 24 mmol/L (22-30); Chloride 101 mmol/L (98-107); Glucose 135 mg/dL (74-99); Magnesium 2.3 mg/dL (1.6-2.3); Non-African American GFR(CKD) 88 (>60 ml/min/1.73 sqM); Potassium 4.5 mmol/L (3.5-5.1); Sodium 134 mmol/L (137-145); Total Bilirubin 1.3 mg/dL (0.2-1.3); Total Protein 5.2 g/dL (6.3-8.2)
[2022-02-01 05:00] LABS: Glucose,Whole Blood 136 mg/dL (70-110)
[2022-02-01 06:04] LABS: Glucose,Whole Blood 146 mg/dL (70-110)
--- NOTE | 2022-02-01 06:13 | PN ---
PROGRESS NOTE SUBJECTIVE: Mr. Singh is stable, awaiting surgery today. He has significant left main and triple- vessel disease and surgery is scheduled for today. OBJECTIVE: VITALS: Stable. NECK : No JVD. HEART: S1, S2 heard normally. LUNGS: Clear. ABDOMEN: Exam unchanged. LOWER EXTREMITIES: Exam unchanged. We will follow him following his open heart surgery. MMODL / IJN: [id number] /
--- NOTE | 2022-02-01 06:13 | PN ---
PROGRESS NOTE SUBJECTIVE: Mr. Singh is stable, awaiting surgery today. He has significant left main and triple- vessel disease and surgery is scheduled for today. OBJECTIVE: VITALS: Stable. NECK : No JVD. HEART: S1, S2 heard normally. LUNGS: Clear. ABDOMEN: Exam unchanged. LOWER EXTREMITIES: Exam unchanged. We will follow him following his open heart surgery. MMODL / IJN: [id number] /
--- NOTE | 2022-02-01 07:01 | XR ---
EXAMINATION TYPE: XR chest 1V portable DATE OF EXAM: 02/01/2022 CLINICAL HISTORY: Difficulty breathing progress study. Postoperative cardiac surgery. TECHNIQUE: Single AP portable upright view of the chest is obtained. COMPARISON: Chest x-ray from one day earlier and older studies. FINDINGS: Interval extubation with removal of endotracheal and orogastric tubes. Stable right internet marketing consultant al jugular [place]-Noe catheter. Stable 2 mediastinal drainage catheters and left-sided chest tube. Ove rlying sternal wires along with mediastinal clips and left atrial appendage clip are all redemonstrat ed. Persistent low lung volumes with left mid lung linear scarring and/or atelectasis. Increasing left ba silar opacity. Improved aeration right upper lobe. No left-sided pneumothorax seen. Right midlung opa [place] on current study. Stable mild cardiomegaly. Bridging osteophytes in thoracic spine redemonstrate d. IMPRESSION: Interval extubation. Persistent low lung volumes and mild cardiomegaly. Improved aeration right upper lobe but new right midlung and left basilar infiltrate and/or atelectasis noted.
--- NOTE | 2022-02-01 07:01 | XR ---
EXAMINATION TYPE: XR chest 1V portable DATE OF EXAM: 02/01/2022 CLINICAL HISTORY: Difficulty breathing progress study. Postoperative cardiac surgery. TECHNIQUE: Single AP portable upright view of the chest is obtained. COMPARISON: Chest x-ray from one day earlier and older studies. FINDINGS: Interval extubation with removal of endotracheal and orogastric tubes. Stable right hospital internship al jugular [place]-Noe catheter. Stable 2 mediastinal drainage catheters and left-sided chest tube. Ove rlying sternal wires along with mediastinal clips and left atrial appendage clip are all redemonstrat ed. Persistent low lung volumes with left mid lung linear scarring and/or atelectasis. Increasing left ba silar opacity. Improved aeration right upper lobe. No left-sided pneumothorax seen. Right midlung opa [place] on current study. Stable mild cardiomegaly. Bridging osteophytes in thoracic spine redemonstrate d. IMPRESSION: Interval extubation. Persistent low lung volumes and mild cardiomegaly. Improved aeration right upper lobe but new right midlung and left basilar infiltrate and/or atelectasis noted.
[2022-02-01 07:19] LABS: Glucose,Whole Blood 133 mg/dL (70-110)
[2022-02-01] MEDS: KETOROLAC 15 MG/ML 1 ML VIAL IVP SCH ×4 (07:24→23:35)
--- NOTE | 2022-02-01 07:54 | US ---
EXAMINATION TYPE: US arterial LE single level DATE OF EXAM: 01/30/2022 2:54 PM CLINICAL HISTORY: Ankle Brachial Index (ABIGAIL). pre bypass surgery tomorrow Doppler Waveforms: Right: Multiphasic Left: Multiphasic Ankle-Brachial Indices: Right: 1.26 Left: 1.37 Toe Brachial Indices: Right: 1.03 Left: 1.03 IMPRESSION: Normal study.
[2022-02-01] MEDS: IPRATROPIUM-ALBUTEROL 3 ML NEB INHALATION SCH ×4 (08:02→19:31)
--- NOTE | 2022-02-01 08:08 | P.PN ---
Subjective Progress Note Date: 02/01/22 Principal diagnosis: Triple-vessel coronary artery disease, non-ST elevated myocardial infarction this admission. Past medical history significant for hypertension, hyperlipidemia, obstructive sleep apnea without CPAP use, family history of early onset coronary artery disease with his dad having a myocardial infarction at age 45, anxiety and remote history of nicotine dependence in which he quit smoking over 8 years ago. POD #1 Off pump coronary artery bypass grafting x 3. Left internal mammary artery to left anterior descending coronary artery, a reverse greater saphenous vein graft to 1st obtuse marginal coronary artery, a reverse greater saphenous vein graft to posterior descending coronary artery, Left atrial appendage ligation with #35 AtriClip, endoscopic bilateral greater saphenous vein harvest, graft flow measurements using Computime-stim system, and intraoperative transesophageal echocardiogram performed by anesthesia. Postoperative acute blood loss anemia, expected given hemodilution. The patient was seen in follow-up today 02/01/2022 at his bedside in the intensive care unit. He was successfully extubated at midnight and is currently on 2 L nasal cannula with oxygen saturation is 96% and he is achieving 1000 mL on his incentive spirometry with encouragement. Currently sitting up to the bedside chair, is awake, alert, oriented 3 and is in no acute apparent distress. He denies any complaints of shortness of breath at this time although is complaining of some pain with taking a deep breath to his chest tube insertion sites. Currently rates his pain 7 out of 10 on the pain scale. Bedside telemetry showing sinus tachycardia heart rate 102 BPM. He remains hemodynamically stable and is currently on no inotropic pressor support. Right IJ Cordis and [place]Noe catheter remains in place with current hemodynamic showing a cardiac output 5.7, cardiac index 2.4, PA pressures 26/14 and a CVP of 6 mmHg. Insulin drip is infusing at 3.5 units per hour and his current blood sugar is 133. Laboratory results this morning show a WBC count of 10.5, hemoglobin 10.4, hematocrit 30.5, platelets 146, sodium 134, potassium 4.5, chloride 101, CO2 24, BUN 16, creatinine 0.86, glucose 135, calcium 8.1, ionized calcium 4.8, magnesium 2.3, AST 61 and ALT 25. Mediastinal, left and right pleural chest tubes remain in place to low continuous wall suction -20 cm H2O. Intermittent air leak noted to the mediastinal chest tube and no air leak present to the right or left pleural chest tube. Mediastinal chest tube draining thin serosanguineous drainage with 95 mL output last 8 hours and 150 mL output since surgery. Right and left pleural chest tubes draining thin serosanguineous drainage with 265 mL output in the last 8 hours and 350 mL output since surgery. Ventricular epicardial pacemaker wires in place and connected to back up to bedside pacemaker generator on a VVI 50 BPM. Objective - Vital Signs Vital signs: Vital Signs Temp 99.5 F 02/01/22 04:00 Pulse 96 02/01/22 07:00 Resp 12 02/01/22 07:00 BP 134/86 02/01/22 05:30 Pulse Ox 99 02/01/22 07:00 FiO2 50 01/31/22 23:45 Intake & Output 01/31/22 02/01/22 02/01/22 18:59 06:59 18:59 Intake Total 103 1508.540 63.654 Output Total 4507 80 Balance 103 -2998.460 -16.346 Weight 117.6 kg Intake: IV 103 1399 59 Albumin Human 5% 250 ml 500 In Empty Bag 1 bag @ 250 mls/hr IVPB Q1HR PRN Rx#: [id number] Lactated Ringers 1,000 ml 550 50 @ 50 mls/hr IV .Q20H [facility] Rx#:[id number] Magnesium Sulfate-D5w Pmx 200 1 gm In Dextrose/Water 1 100ml.bag @ 100 mls/hr IVPB Q1H [facility] Rx#: [id number] Pressure bag 99 9 ceFAZolin 2 gm In Sodium 50 Chloride 0.9% 50 ml @ 100 mls/hr IVPB ONCE ONE Rx# :[id number] Intake, IV Titration 109.540 4.654 Amount Clevidipine Butyrate 25 52.134 mg In Empty Bag 1 bag @ 1 MG/HR 2 mls/hr IV .Q24H [facility] Rx#:[id number] Dexmedetomidine/0.9% NaCl 6.985 (Pmx) 400 mcg In Empty Bag 1 bag @ 0.2 MCG/KG/HR 5.443 mls/hr IV .[id number] [facility] Rx#:[id number] Insulin Regular 100 unit 31.807 4.654 In Sodium Chloride 0.9% 100 ml @ Per Protocol IV .Q0M [facility] Rx#:[id number] propofoL 1,000 mg In 18.614 Empty Bag 1 bag @ Titrate IV .Q0M [facility]ON[facility] Rx#: [id number] Output: Chest Tube Drainage 482 20 Mediastinal chest tube [address] chest 352 0 tube Urine 1525 60 Estimated Blood Loss 2500 Other: Voiding Method Toilet Indwelling Catheter ABP, PAP, CO, CI - Last Documented Arterial Blood Pressure 128/59 Pulmonary Artery Pressure 25/19 Cardiac Output 5.7 Cardiac Index 2.4 - Exam CONSTITUTIONAL: Sitting up to the bedside chair in the intensive care unit, appears comfortable, cooperative, no apparent acute distress. Complaining of pain with taking a deep breath to his chest tube insertion sites. HEENT: Neck is supple, no JVD, no lymphadenopathy. Right IJ Cordis and [place] Noe catheter in place and functioning. RESPIRATORY: Lungs sounds essentially clear throughout, diminished to his bilateral bases. Respirations are symmetrical and nonlabored. Currently on 2 L nasal cannula with oxygen saturations 96%. Able to achieve 1000 mL on his incentive spirometry. Strong cough. CARDIOVASCULAR: Regular rhythm and rate. S1 and S2 present, negative for S3, gallop or murmur. Sternum is stable. Palpable peripheral pulses bilaterally, no edema to his bilateral lower extremities. No calf pain or tenderness noted. Heart hugger in place with patient demonstrating appropriate use. Knee-high BHAVANI hose and sequential compression devices in place to his bilateral lower extremities. GASTROINTESTINAL: Abdomen soft, nontender, nondistended. Hypoactive bowel sounds present 4 quadrants. Tolerating diet. Passing flatus. No guarding or rigidity. GENITOURINARY: Maldonado present draining clear, yellow urine. Urine output 600 mL in the last 8 hours. INTEGUMENTARY: Skin is warm and dry with no evidence of clubbing or cyanosis. Midline sternal incision clean dry and well approximated, covered with dry intact dressing. Bilateral lower extremity EVH sites well approximated without redness or drainage. NEUROLOGIC: Cranial nerves II through XII intact. No focal deficits. MUSKULOSKELETAL: Able to move all extremities, strength equal bilaterally, generalized weakness. PSYCHIATRIC: Alert and oriented to person place and time, appropriate affect, intact judgment and insight. INVASIVE LINES AND TUBES: Mediastinal/left pleural chest tubes and right pleur al Romero chest tube present and connected to low continuous wall suction, no air leak present to the pleural chest tubes although there is an intermittent air leak to the mediastinal chest tube. Mediastinal tube with 95 mL of thin serosanguineous drainage overnight, 150 mL output since surgery. Left pleural chest tube and right pleural Romero drain with 265 mL of thin serosanguineous drainage overnight, 350 mL output since surgery. Ventricular epicardial pacemaker wires present, connected to generator, VVI backup rate 50 bpm. Right internal jugular [place]/Cordis, right radial arterial line present. Last CO 5.7, CI 2.4, PA 26/14 and CVP 6 mmHg. - Allied health notes Allied health notes reviewed: nursing - Labs CBC & Chem 7: 02/01/22 03:59 02/01/22 03:59 Labs: Abnormal Lab Results - Last 24 Hours (Table) 01/30/22 01/31/22 01/31/22 Range/Units 12:35 13:52 15:19 WBC (3.8-10.6) k/uL RBC (4.30-5.90) m/uL Hgb (13.0-17.5) gm/dL Hct (39.0-53.0) % Plt Count (150-450) k/uL Neutrophils # (1.3-7.7) k/uL Lymphocytes # (1.0-4.8) k/uL Monocytes # (0-1.0) k/uL PT (9.0-12.0) sec INR (<1.2) ABG pH (7.35-7.45) ABG pCO2 50 H (35-45) mmHg ABG pO2 264 H 126 H (83-108) mmHg ABG HCO3 28 H (21-25) mmol/L ABG Total CO2 29 H 26 H (19-24) mmol/L ABG O2 Saturation 99.5 H 98.5 H (94-97) % ABG Hematocrit (34.0-46.0) % ABG Potassium 4.7 H 5.0 H (3.4-4.5) mmol/L ABG Ionized Calcium (4.5-5.3) mg/dL ABG Glucose 127 H 149 H (75-99) mg/dL Hemoglobin (13.0-17.5) gm/dL Sodium (137-145) mmol/L Glucose (74-99) mg/dL POC Glucose (mg/dL) (70-110) mg/dL Calcium (8.4-10.2) mg/dL Total Bilirubin (0.2-1.3) mg/dL AST (17-59) U/L Alkaline Phosphatase (38-126) U/L Total Protein (6.3-8.2) g/dL Albumin (3.5-5.0) g/dL Arterial Blood Potassium 4.7 H 5.0 H (3.4-4.5) mmol/L Arterial Blood Glucose 127 H 149 H (75-99) mg/dL Crossmatch See Detail 01/31/22 01/31/22 01/31/22 Range/Units 16:24 17:27 18:16 WBC (3.8-10.6) k/uL RBC (4.30-5.90) m/uL Hgb (13.0-17.5) gm/dL Hct (39.0-53.0) % Plt Count (150-450) k/uL Neutrophils # (1.3-7.7) k/uL Lymphocytes # (1.0-4.8) k/uL Monocytes # (0-1.0) k/uL PT (9.0-12.0) sec INR (<1.2) ABG pH 7.23 L 7.31 L (7.35-7.45) ABG pCO2 59 H 46 H (35-45) mmHg ABG pO2 325 H 159 H 288 H (83-108) mmHg ABG HCO3 (21-25) mmol/L ABG Total CO2 27 H 25 H 25 H (19-24) mmol/L ABG O2 Saturation 99.5 H 99.0 H 99.7 H (94-97) % ABG Hematocrit 32 L (34.0-46.0) % ABG Potassium (3.4-4.5) mmol/L ABG Ionized Calcium 6.4 H* (4.5-5.3) mg/dL ABG Glucose 162 H 145 H 145 H (75-99) mg/dL Hemoglobin 12.1 L 11.1 L 10.4 L (13.0-17.5) gm/dL Sodium (137-145) mmol/L Glucose (74-99) mg/dL POC Glucose (mg/dL) (70-110) mg/dL Calcium (8.4-10.2) mg/dL Total Bilirubin (0.2-1.3) mg/dL AST (17-59) U/L Alkaline Phosphatase (38-126) U/L Total Protein (6.3-8.2) g/dL Albumin (3.5-5.0) g/dL Arterial Blood Potassium (3.4-4.5) mmol/L Arterial Blood Glucose 162 H 145 H 145 H (75-99) mg/dL Crossmatch 01/31/22 01/31/22 01/31/22 Range/Units 18:42 19:14 20:15 WBC (3.8-10.6) k/uL RBC (4.30-5.90) m/uL Hgb (13.0-17.5) gm/dL Hct (39.0-53.0) % Plt Count (150-450) k/uL Neutrophils # (1.3-7.7) k/uL Lymphocytes # (1.0-4.8) k/uL Monocytes # (0-1.0) k/uL PT (9.0-12.0) sec INR (<1.2) ABG pH 7.34 L 7.34 L (7.35-7.45) ABG pCO2 46 H (35-45) mmHg ABG pO2 309 H 289 H (83-108) mmHg ABG HCO3 (21-25) mmol/L ABG Total CO2 26 H 26 H (19-24) mmol/L ABG O2 Saturation 99.8 H 99.8 H (94-97) % ABG Hematocrit 33 L (34.0-46.0) % ABG Potassium (3.4-4.5) mmol/L ABG Ionized Calcium (4.5-5.3) mg/dL ABG Glucose 127 H 128 H (75-99) mg/dL Hemoglobin 11.0 L 10.7 L (13.0-17.5) gm/dL Sodium (137-145) mmol/L Glucose (74-99) mg/dL POC Glucose (mg/dL) 147 H (70-110) mg/dL Calcium (8.4-10.2) mg/dL Total Bilirubin (0.2-1.3) mg/dL AST (17-59) U/L Alkaline Phosphatase (38-126) U/L Total Protein (6.3-8.2) g/dL Albumin (3.5-5.0) g/dL Arterial Blood Potassium (3.4-4.5) mmol/L Arterial Blood Glucose 127 H 128 H (75-99) mg/dL Crossmatch 01/31/22 01/31/22 01/31/22 Range/Units 20:15 20:15 20:15 WBC (3.8-10.6) k/uL RBC 3.49 L (4.30-5.90) m/uL Hgb 10.3 L D (13.0-17.5) gm/dL Hct 30.5 L (39.0-53.0) % Plt Count 128 L (150-450) k/uL Neutrophils # 7.8 H (1.3-7.7) k/uL Lymphocytes # 0.8 L (1.0-4.8) k/uL Monocytes # (0-1.0) k/uL PT 13.2 H (9.0-12.0) sec INR 1.3 H (<1.2) ABG pH (7.35-7.45) ABG pCO2 (35-45) mmHg ABG pO2 (83-108) mmHg ABG HCO3 (21-25) mmol/L ABG Total CO2 (19-24) mmol/L ABG O2 Saturation (94-97) % ABG Hematocrit (34.0-46.0) % ABG Potassium (3.4-4.5) mmol/L ABG Ionized Calcium (4.5-5.3) mg/dL ABG Glucose (75-99) mg/dL Hemoglobin (13.0-17.5) gm/dL Sodium 135 L (137-145) mmol/L Glucose 131 H (74-99) mg/dL POC Glucose (mg/dL) (70-110) mg/dL Calcium 8.2 L (8.4-10.2) mg/dL Total Bilirubin 2.2 H (0.2-1.3) mg/dL AST (17-59) U/L Alkaline Phosphatase 34 L (38-126) U/L Total Protein 4.7 L (6.3-8.2) g/dL Albumin 3.0 L (3.5-5.0) g/dL Arterial Blood Potassium (3.4-4.5) mmol/L Arterial Blood Glucose (75-99) mg/dL Crossmatch 01/31/22 01/31/22 01/31/22 Range/Units 20:37 21:37 22:58 WBC (3.8-10.6) k/uL RBC (4.30-5.90) m/uL Hgb (13.0-17.5) gm/dL Hct (39.0-53.0) % Plt Count (150-450) k/uL Neutrophils # (1.3-7.7) k/uL Lymphocytes # (1.0-4.8) k/uL Monocytes # (0-1.0) k/uL PT (9.0-12.0) sec INR (<1.2) ABG pH 7.31 L (7.35-7.45) ABG pCO2 50 H (35-45) mmHg ABG pO2 217 H (83-108) mmHg ABG HCO3 (21-25) mmol/L ABG Total CO2 26 H (19-24) mmol/L ABG O2 Saturation 99.8 H (94-97) % ABG Hematocrit (34.0-46.0) % ABG Potassium (3.4-4.5) mmol/L ABG Ionized Calcium (4.5-5.3) mg/dL ABG Glucose (75-99) mg/dL Hemoglobin (13.0-17.5) gm/dL Sodium (137-145) mmol/L Glucose (74-99) mg/dL POC Glucose (mg/dL) 157 H 192 H (70-110) mg/dL Calcium (8.4-10.2) mg/dL Total Bilirubin (0.2-1.3) mg/dL AST (17-59) U/L Alkaline Phosphatase (38-126) U/L Total Protein (6.3-8.2) g/dL Albumin (3.5-5.0) g/dL Arterial Blood Potassium (3.4-4.5) mmol/L Arterial Blood Glucose (75-99) mg/dL Crossmatch 01/31/22 01/31/22 02/01/22 Range/Units 23:10 23:29 00:07 WBC 18.4 H (3.8-10.6) k/uL RBC 3.61 L (4.30-5.90) m/uL Hgb 11.4 L (13.0-17.5) gm/dL Hct 31.8 L (39.0-53.0) % Plt Count (150-450) k/uL Neutrophils # 15.0 H (1.3-7.7) k/uL Lymphocytes # (1.0-4.8) k/uL Monocytes # 1.1 H (0-1.0) k/uL PT (9.0-12.0) sec INR (<1.2) ABG pH 7.28 L (7.35-7.45) ABG pCO2 50 H (35-45) mmHg ABG pO2 66 L (83-108) mmHg ABG HCO3 (21-25) mmol/L ABG Total CO2 25 H (19-24) mmol/L ABG O2 Saturation 92.0 L (94-97) % ABG Hematocrit (34.0-46.0) % ABG Potassium (3.4-4.5) mmol/L ABG Ionized Calcium (4.5-5.3) mg/dL ABG Glucose (75-99) mg/dL Hemoglobin (13.0-17.5) gm/dL Sodium (137-145) mmol/L Glucose (74-99) mg/dL POC Glucose (mg/dL) 170 H (70-110) mg/dL Calcium (8.4-10.2) mg/dL Total Bilirubin (0.2-1.3) mg/dL AST (17-59) U/L Alkaline Phosphatase (38-126) U/L Total Protein (6.3-8.2) g/dL Albumin (3.5-5.0) g/dL Arterial Blood Potassium (3.4-4.5) mmol/L Arterial Blood Glucose (75-99) mg/dL Crossmatch 02/01/22 02/01/22 02/01/22 Range/Units 01:26 02:12 03:11 WBC (3.8-10.6) k/uL RBC (4.30-5.90) m/uL Hgb (13.0-17.5) gm/dL Hct (39.0-53.0) % Plt Count (150-450) k/uL Neutrophils # (1.3-7.7) k/uL Lymphocytes # (1.0-4.8) k/uL Monocytes # (0-1.0) k/uL PT (9.0-12.0) sec INR (<1.2) ABG pH (7.35-7.45) ABG pCO2 (35-45) mmHg ABG pO2 (83-108) mmHg ABG HCO3 (21-25) mmol/L ABG Total CO2 (19-24) mmol/L ABG O2 Saturation (94-97) % ABG Hematocrit (34.0-46.0) % ABG Potassium (3.4-4.5) mmol/L ABG Ionized Calcium (4.5-5.3) mg/dL ABG Glucose (75-99) mg/dL Hemoglobin (13.0-17.5) gm/dL Sodium (137-145) mmol/L Glucose (74-99) mg/dL POC Glucose (mg/dL) 143 H 165 H 162 H (70-110) mg/dL Calcium (8.4-10.2) mg/dL Total Bilirubin (0.2-1.3) mg/dL AST (17-59) U/L Alkaline Phosphatase (38-126) U/L Total Protein (6.3-8.2) g/dL Albumin (3.5-5.0) g/dL Arterial Blood Potassium (3.4-4.5) mmol/L Arterial Blood Glucose (75-99) mg/dL Crossmatch 02/01/22 02/01/22 02/01/22 Range/Units 03:58 03:59 03:59 WBC (3.8-10.6) k/uL RBC 3.51 L (4.30-5.90) m/uL Hgb 10.4 L (13.0-17.5) gm/dL Hct 30.5 L (39.0-53.0) % Plt Count 146 L (150-450) k/uL Neutrophils # 9.1 H (1.3-7.7) k/uL Lymphocytes # 0.6 L (1.0-4.8) k/uL Monocytes # (0-1.0) k/uL PT (9.0-12.0) sec INR (<1.2) ABG pH (7.35-7.45) ABG pCO2 (35-45) mmHg ABG pO2 (83-108) mmHg ABG HCO3 (21-25) mmol/L ABG Total CO2 (19-24) mmol/L ABG O2 Saturation (94-97) % ABG Hematocrit (34.0-46.0) % ABG Potassium (3.4-4.5) mmol/L ABG Ionized Calcium (4.5-5.3) mg/dL ABG Glucose (75-99) mg/dL Hemoglobin (13.0-17.5) gm/dL Sodium 134 L (137-145) mmol/L Glucose 135 H (74-99) mg/dL POC Glucose (mg/dL) 143 H (70-110) mg/dL Calcium 8.1 L (8.4-10.2) mg/dL Total Bilirubin (0.2-1.3) mg/dL AST 61 H (17-59) U/L Alkaline Phosphatase (38-126) U/L Total Protein 5.2 L (6.3-8.2) g/dL Albumin 3.4 L (3.5-5.0) g/dL Arterial Blood Potassium (3.4-4.5) mmol/L Arterial Blood Glucose (75-99) mg/dL Crossmatch 02/01/22 02/01/22 02/01/22 Range/Units 04:57 06:03 07:17 WBC (3.8-10.6) k/uL RBC (4.30-5.90) m/uL Hgb (13.0-17.5) gm/dL Hct (39.0-53.0) % Plt Count (150-450) k/uL Neutrophils # (1.3-7.7) k/uL Lymphocytes # (1.0-4.8) k/uL Monocytes # (0-1.0) k/uL PT (9.0-12.0) sec INR (<1.2) ABG pH (7.35-7.45) ABG pCO2 (35-45) mmHg ABG pO2 (83-108) mmHg ABG HCO3 (21-25) mmol/L ABG Total CO2 (19-24) mmol/L ABG O2 Saturation (94-97) % ABG Hematocrit (34.0-46.0) % ABG Potassium (3.4-4.5) mmol/L ABG Ionized Calcium (4.5-5.3) mg/dL ABG Glucose (75-99) mg/dL Hemoglobin (13.0-17.5) gm/dL Sodium (137-145) mmol/L Glucose (74-99) mg/dL POC Glucose (mg/dL) 136 H 146 H 133 H (70-110) mg/dL Calcium (8.4-10.2) mg/dL Total Bilirubin (0.2-1.3) mg/dL AST (17-59) U/L Alkaline Phosphatase (38-126) U/L Total Protein (6.3-8.2) g/dL Albumin (3.5-5.0) g/dL Arterial Blood Potassium (3.4-4.5) mmol/L Arterial Blood Glucose (75-99) mg/dL Crossmatch Microbiology - Last 24 Hours (Table) 01/30/22 15:20 Nasal Screen MRSA/MSSA - Final Nasal Swab - Imaging and Cardiology Chest x-ray: report reviewed, image reviewed Assessment and Plan Assessment: 1. Multivessel coronary artery disease, status post three-vessel coronary artery bypass grafting surgery 2. Non-ST elevated myocardial infarction this admission, with serial troponins as high as 0.258 3. History of hypertension 4. History of hyperlipidemia 5. Obstructive sleep apnea without home CPAP use 6. Family history of early onset coronary artery disease with his dad having a myocardial infarction at age 45 7. Remote history of nicotine dependence quit smoking 8 years ago 8. Anxiety 9. Chronic lower back pain 10. Postoperative acute blood loss anemia, secondary to hemodilution Plan: 1. Continue to maximize medical therapy with full strength aspirin, statin, and beta barbara. We will increase metoprolol tartrate 25 mg by mouth twice a day. 2. Discontinue nitroglycerin drip. 3. Wean O2 as tolerated. Encourage incentive spirometry 10 times every hour while awake. Bronchodilators per pulmonology. 4. Increase activity, ambulate as tolerated. PT/OT/cardiac rehab consulted. 5. Will monitor daily labs and chest x-ray. Electrolyte replacement per protocol. 6. Pain control with current medication regimen. Toradol added for additional pain control. 7. Insulin management per internal medicine. Patient is not diabetic, preoperative hemaglobin A1c 6.1%. 8. Discontinue swan, connect cordis to continuous CVP monitoring. 9. Continue chest tubes to low continuous wall suction -20 cm H2O for another 24 hours. 10. Continue maldonado for another 24 hours for strict accurate intake and output. Daily weights. 11. More recommendations to follow based on patient's clinical course. Time with Patient: Greater than 30
[2022-02-01 08:09] LABS: Glucose,Whole Blood 142 mg/dL (70-110)
[2022-02-01] MEDS: ASPIRIN 325 MG TAB PO SCH (08:18)
[2022-02-01] MEDS: PANTOPRAZOLE 40 MG TABLET PO SCH (08:18)
[2022-02-01] MEDS: CLOPIDOGREL 75 MG TAB PO SCH (08:18)
[2022-02-01] MEDS: METOPROLOL TARTRATE 25 MG TAB PO SCH ×2 (08:18→20:10)
[2022-02-01] MEDS: MUPIROCIN 2% OINT 22 GM TUBE NASAL SCH ×2 (08:19→20:10)
[2022-02-01] MEDS: ATORVASTATIN 40 MG TAB PO SCH (08:19)
[2022-02-01] MEDS ORDERED: METOPROLOL TARTRATE 12.5 MG TAB PO SCH (09:00)
[2022-02-01] MEDS ORDERED: PANTOPRAZOLE 40 MG/10 ML VIAL IVP SCH (09:00)
[2022-02-01] MEDS ORDERED: MAGNESIUM HYDROXIDE 2,400 MG/10 ML CUP PO PRN (09:00)
[2022-02-01 09:41] VITALS: BMI 37.2
[2022-02-01 10:11] LABS: Glucose,Whole Blood 140 mg/dL (70-110)
--- NOTE | 2022-02-01 10:48 | PN ---
PROGRESS NOTE SUBJECTIVE: This 71-year-old gentleman, who was admitted with chest pain, was found to have acute DICTATION ENDS HERE MMODL / IJN: [id number] /
--- NOTE | 2022-02-01 10:48 | PN ---
PROGRESS NOTE SUBJECTIVE: This 71-year-old gentleman, who was admitted with chest pain, was found to have acute DICTATION ENDS HERE MMODL / IJN: [id number] /
--- NOTE | 2022-02-01 11:50 | P.PN ---
Subjective Progress Note Date: 02/01/22 Principal diagnosis: Coronary artery disease. Pulmonary consult dated 01/31/2022. 71-year-old male who presented to the emergency department on January 29, complaining of chest pain for 3 days. The patient was going on for 3 days prior to admission. It was clearly exertional in nature. He apparently initially noted when he was loading a drywall into his truck. When he sat down, the symptoms would resolve. He did have some mild shortness of breath along with it. No radiation of the pain. He had a heart catheterization in 2014, and apparently had a small blockage that did not need a stent at that time. The patient was admitted with an acute non-ST segment elevation myocardial infarction. Apparently, the patient had a cardiac catheterization, although I do not see the operative report, and the patient is scheduled to have bypass grafting later today. I introduced myself to the patient, and told him that my job was to initially, get the patient extubated from mechanical ventilation, and then secondly, the follow the patient, throughout his hospitalization, to make sure that his lungs are healthy. The patient does not have a history of any lung issues. He did smoke in the distant past. 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 Laboratory data from yesterday shows a white count of 4.9, hemoglobin 13.6, hematocrit 39.7, and a platelet count of 182,000. Sodium 136, potassium 4.2, chlorides 102, CO2 26, BUN 20, creatinine 0.89. Chest CT showed atheros clerotic vascular disease, without any suspicious pulmonary masses or lesion. Progress note dated 02/01/2022. 71-year-old male seen yesterday in consultation. The patient is postop day #1, status post three-vessel bypass grafting, including LIND to LAD bypass, saphenous vein graft to obtuse marginal 1, and saphenous vein graft to posterior descending artery. Currently, the patient's doing well. He was extubated in less than 6 hours after the operating room. He is currently on 5 L nasal can nula. He is getting lactated Ringer's at 20 mL an hour. He is also on an insulin drip at 3 units an hour. The surgery was done by Dr. Huynh. White count 10.5, hemoglobin 10.4, hematocrit 30.5, and platelet count 146,000. Sodium 134, potassium 4.5, chlorides 101, CO2 24, BUN 16, creatinine 0.86. Albumin is 3.4. Chest x-ray shows interval extubation, low lung volumes, cardiomegaly, and some basilar atelectasis. Objective - Vital Signs Vital signs: Vital Signs Temp 98.6 F 02/01/22 08:00 Pulse 95 02/01/22 09:30 Resp 5 L 02/01/22 09:30 BP 134/86 02/01/22 05:30 Pulse Ox 96 02/01/22 07:30 FiO2 50 01/31/22 23:45 Intake & Output 01/31/22 02/01/22 02/01/22 18:59 06:59 18:59 Intake Total 103 1508.540 117.422 Output Total 4507 305 Balance 103 -2998.460 -187.578 Weight 117.6 kg 117.6 kg Intake: IV 103 1399 111 Albumin Human 5% 250 ml 500 In Empty Bag 1 bag @ 250 mls/hr IVPB Q1HR PRN Rx#: [id number] Lactated Ringers 1,000 ml 550 90 @ 50 mls/hr IV .Q20H [facility] Rx#:[id number] Magnesium Sulfate-D5w Pmx 200 1 gm In Dextrose/Water 1 100ml.bag @ 100 mls/hr IVPB Q1H [facility] Rx#: [id number] Pressure bag 99 21 ceFAZolin 2 gm In Sodium 50 Chloride 0.9% 50 ml @ 100 mls/hr IVPB ONCE ONE Rx# :[id number] Intake, IV Titration 109.540 6.422 Amount Clevidipine Butyrate 25 52.134 mg In Empty Bag 1 bag @ 1 MG/HR 2 mls/hr IV .Q24H [facility] Rx#:[id number] Dexmedetomidine/0.9% NaCl 6.985 (Pmx) 400 mcg In Empty Bag 1 bag @ 0.2 MCG/KG/HR 5.443 mls/hr IV .[id number] [facility] Rx#:[id number] Insulin Regular 100 unit 31.807 6.422 In Sodium Chloride 0.9% 100 ml @ Per Protocol IV .Q0M [facility] Rx#:[id number] propofoL 1,000 mg In 18.614 Empty Bag 1 bag @ Titrate IV .Q0M [facility] Rx#: [id number] Output: Chest Tube Drainage 482 170 Mediastinal chest tube [address] chest 352 100 tube Urine 1525 135 Estimated Blood Loss 2500 Other: Voiding Method Toilet Indwelling Catheter Indwelling Catheter ABP, PAP, CO, CI - Last Documented Arterial Blood Pressure 107/45 Pulmonary Artery Pressure 20/11 Cardiac Output 5.7 Cardiac Index 2.4 - Exam No acute distress, oriented 3. The patient's currently on 5 L nasal cannula. No conversational dyspnea or use of accessory muscles. HEENT examination is grossly unremarkable. Neck supple. Full range of motion. No adenopathy thyromegaly or neck vein distention. Cardiovascular examination reveals regular rhythm rate. S1-S2 normal. No S3 or S4. No discernible murmur noted. Heart rate 95 bpm. Lungs reveal clear breath sounds. Breath sounds are equal bilaterally. No adventitious lung sounds including wheezes rhonchi or crackles. Abdomen soft bowel sounds are heard. No masses or tenderness. Extremities are intact. No cyanosis clubbing or edema. Skin is without rash or lesion. Neurologic examination is brief but nonfocal. - Labs CBC & Chem 7: 02/01/22 03:59 02/01/22 03:59 Labs: Abnormal Lab Results - Last 24 Hours (Table) 01/30/22 01/31/22 01/31/22 Range/Units 12:35 13:52 15:19 WBC (3.8-10.6) k/uL RBC (4.30-5.90) m/uL Hgb (13.0-17.5) gm/dL Hct (39.0-53.0) % Plt Count (150-450) k/uL Neutrophils # (1.3-7.7) k/uL Lymphocytes # (1.0-4.8) k/uL Monocytes # (0-1.0) k/uL PT (9.0-12.0) sec INR (<1.2) ABG pH (7.35-7.45) ABG pCO2 50 H (35-45) mmHg ABG pO2 264 H 126 H (83-108) mmHg ABG HCO3 28 H (21-25) mmol/L ABG Total CO2 29 H 26 H (19-24) mmol/L ABG O2 Saturation 99.5 H 98.5 H (94-97) % ABG Hematocrit (34.0-46.0) % ABG Potassium 4.7 H 5.0 H (3.4-4.5) mmol/L ABG Ionized Calcium (4.5-5.3) mg/dL ABG Glucose 127 H 149 H (75-99) mg/dL Hemoglobin (13.0-17.5) gm/dL Sodium (137-145) mmol/L Glucose (74-99) mg/dL POC Glucose (mg/dL) (70-110) mg/dL Calcium (8.4-10.2) mg/dL Total Bilirubin (0.2-1.3) mg/dL AST (17-59) U/L Alkaline Phosphatase (38-126) U/L Total Protein (6.3-8.2) g/dL Albumin (3.5-5.0) g/dL Arterial Blood Potassium 4.7 H 5.0 H (3.4-4.5) mmol/L Arterial Blood Glucose 127 H 149 H (75-99) mg/dL Crossmatch See Detail 01/31/22 01/31/22 01/31/22 Range/Units 16:24 17:27 18:16 WBC (3.8-10.6) k/uL RBC (4.30-5.90) m/uL Hgb (13.0-17.5) gm/dL Hct (39.0-53.0) % Plt Count (150-450) k/uL Neutrophils # (1.3-7.7) k/uL Lymphocytes # (1.0-4.8) k/uL Monocytes # (0-1.0) k/uL PT (9.0-12.0) sec INR (<1.2) ABG pH 7.23 L 7.31 L (7.35-7.45) ABG pCO2 59 H 46 H (35-45) mmHg ABG pO2 325 H 159 H 288 H (83-108) mmHg ABG HCO3 (21-25) mmol/L ABG Total CO2 27 H 25 H 25 H (19-24) mmol/L ABG O2 Saturation 99.5 H 99.0 H 99.7 H (94-97) % ABG Hematocrit 32 L (34.0-46.0) % ABG Potassium (3.4-4.5) mmol/L ABG Ionized Calcium 6.4 H* (4.5-5.3) mg/dL ABG Glucose 162 H 145 H 145 H (75-99) mg/dL Hemoglobin 12.1 L 11.1 L 10.4 L (13.0-17.5) gm/dL Sodium (137-145) mmol/L Glucose (74-99) mg/dL POC Glucose (mg/dL) (70-110) mg/dL Calcium (8.4-10.2) mg/dL Total Bilirubin (0.2-1.3) mg/dL AST (17-59) U/L Alkaline Phosphatase (38-126) U/L Total Protein (6.3-8.2) g/dL Albumin (3.5-5.0) g/dL Arterial Blood Potassium (3.4-4.5) mmol/L Arterial Blood Glucose 162 H 145 H 145 H (75-99) mg/dL Crossmatch 01/31/22 01/31/22 01/31/22 Range/Units 18:42 19:14 20:15 WBC (3.8-10.6) k/uL RBC (4.30-5.90) m/uL Hgb (13.0-17.5) gm/dL Hct (39.0-53.0) % Plt Count (150-450) k/uL Neutrophils # (1.3-7.7) k/uL Lymphocytes # (1.0-4.8) k/uL Monocytes # (0-1.0) k/uL PT (9.0-12.0) sec INR (<1.2) ABG pH 7.34 L 7.34 L (7.35-7.45) ABG pCO2 46 H (35-45) mmHg ABG pO2 309 H 289 H (83-108) mmHg ABG HCO3 (21-25) mmol/L ABG Total CO2 26 H 26 H (19-24) mmol/L ABG O2 Saturation 99.8 H 99.8 H (94-97) % ABG Hematocrit 33 L (34.0-46.0) % ABG Potassium (3.4-4.5) mmol/L ABG Ionized Calcium (4.5-5.3) mg/dL ABG Glucose 127 H 128 H (75-99) mg/dL Hemoglobin 11.0 L 10.7 L (13.0-17.5) gm/dL Sodium (137-145) mmol/L Glucose (74-99) mg/dL POC Glucose (mg/dL) 147 H (70-110) mg/dL Calcium (8.4-10.2) mg/dL Total Bilirubin (0.2-1.3) mg/dL AST (17-59) U/L Alkaline Phosphatase (38-126) U/L Total Protein (6.3-8.2) g/dL Albumin (3.5-5.0) g/dL Arterial Blood Potassium (3.4-4.5) mmol/L Arterial Blood Glucose 127 H 128 H (75-99) mg/dL Crossmatch 01/31/22 01/31/22 01/31/22 Range/Units 20:15 20:15 20:15 WBC (3.8-10.6) k/uL RBC 3.49 L (4.30-5.90) m/uL Hgb 10.3 L D (13.0-17.5) gm/dL Hct 30.5 L (39.0-53.0) % Plt Count 128 L (150-450) k/uL Neutrophils # 7.8 H (1.3-7.7) k/uL Lymphocytes # 0.8 L (1.0-4.8) k/uL Monocytes # (0-1.0) k/uL PT 13.2 H (9.0-12.0) sec INR 1.3 H (<1.2) ABG pH (7.35-7.45) ABG pCO2 (35-45) mmHg ABG pO2 (83-108) mmHg ABG HCO3 (21-25) mmol/L ABG Total CO2 (19-24) mmol/L ABG O2 Saturation (94-97) % ABG Hematocrit (34.0-46.0) % ABG Potassium (3.4-4.5) mmol/L ABG Ionized Calcium (4.5-5.3) mg/dL ABG Glucose (75-99) mg/dL Hemoglobin (13.0-17.5) gm/dL Sodium 135 L (137-145) mmol/L Glucose 131 H (74-99) mg/dL POC Glucose (mg/dL) (70-110) mg/dL Calcium 8.2 L (8.4-10.2) mg/dL Total Bilirubin 2.2 H (0.2-1.3) mg/dL AST (17-59) U/L Alkaline Phosphatase 34 L (38-126) U/L Total Protein 4.7 L (6.3-8.2) g/dL Albumin 3.0 L (3.5-5.0) g/dL Arterial Blood Potassium (3.4-4.5) mmol/L Arterial Blood Glucose (75-99) mg/dL Crossmatch 01/31/22 01/31/22 01/31/22 Range/Units 20:37 21:37 22:58 WBC (3.8-10.6) k/uL RBC (4.30-5.90) m/uL Hgb (13.0-17.5) gm/dL Hct (39.0-53.0) % Plt Count (150-450) k/uL Neutrophils # (1.3-7.7) k/uL Lymphocytes # (1.0-4.8) k/uL Monocytes # (0-1.0) k/uL PT (9.0-12.0) sec INR (<1.2) ABG pH 7.31 L (7.35-7.45) ABG pCO2 50 H (35-45) mmHg ABG pO2 217 H (83-108) mmHg ABG HCO3 (21-25) mmol/L ABG Total CO2 26 H (19-24) mmol/L ABG O2 Saturation 99.8 H (94-97) % ABG Hematocrit (34.0-46.0) % ABG Potassium (3.4-4.5) mmol/L ABG Ionized Calcium (4.5-5.3) mg/dL ABG Glucose (75-99) mg/dL Hemoglobin (13.0-17.5) gm/dL Sodium (137-145) mmol/L Glucose (74-99) mg/dL POC Glucose (mg/dL) 157 H 192 H (70-110) mg/dL Calcium (8.4-10.2) mg/dL Total Bilirubin (0.2-1.3) mg/dL AST (17-59) U/L Alkaline Phosphatase (38-126) U/L Total Protein (6.3-8.2) g/dL Albumin (3.5-5.0) g/dL Arterial Blood Potassium (3.4-4.5) mmol/L Arterial Blood Glucose (75-99) mg/dL Crossmatch 01/31/22 01/31/22 02/01/22 Range/Units 23:10 23:29 00:07 WBC 18.4 H (3.8-10.6) k/uL RBC 3.61 L (4.30-5.90) m/uL Hgb 11.4 L (13.0-17.5) gm/dL Hct 31.8 L (39.0-53.0) % Plt Count (150-450) k/uL Neutrophils # 15.0 H (1.3-7.7) k/uL Lymphocytes # (1.0-4.8) k/uL Monocytes # 1.1 H (0-1.0) k/uL PT (9.0-12.0) sec INR (<1.2) ABG pH 7.28 L (7.35-7.45) ABG pCO2 50 H (35-45) mmHg ABG pO2 66 L (83-108) mmHg ABG HCO3 (21-25) mmol/L ABG Total CO2 25 H (19-24) mmol/L ABG O2 Saturation 92.0 L (94-97) % ABG Hematocrit (34.0-46.0) % ABG Potassium (3.4-4.5) mmol/L ABG Ionized Calcium (4.5-5.3) mg/dL ABG Glucose (75-99) mg/dL Hemoglobin (13.0-17.5) gm/dL Sodium (137-145) mmol/L Glucose (74-99) mg/dL POC Glucose (mg/dL) 170 H (70-110) mg/dL Calcium (8.4-10.2) mg/dL Total Bilirubin (0.2-1.3) mg/dL AST (17-59) U/L Alkaline Phosphatase (38-126) U/L Total Protein (6.3-8.2) g/dL Albumin (3.5-5.0) g/dL Arterial Blood Potassium (3.4-4.5) mmol/L Arterial Blood Glucose (75-99) mg/dL Crossmatch 02/01/22 02/01/22 02/01/22 Range/Units 01:26 02:12 03:11 WBC (3.8-10.6) k/uL RBC (4.30-5.90) m/uL Hgb (13.0-17.5) gm/dL Hct (39.0-53.0) % Plt Count (150-450) k/uL Neutrophils # (1.3-7.7) k/uL Lymphocytes # (1.0-4.8) k/uL Monocytes # (0-1.0) k/uL PT (9.0-12.0) sec INR (<1.2) ABG pH (7.35-7.45) ABG pCO2 (35-45) mmHg ABG pO2 (83-108) mmHg ABG HCO3 (21-25) mmol/L ABG Total CO2 (19-24) mmol/L ABG O2 Saturation (94-97) % ABG Hematocrit (34.0-46.0) % ABG Potassium (3.4-4.5) mmol/L ABG Ionized Calcium (4.5-5.3) mg/dL ABG Glucose (75-99) mg/dL Hemoglobin (13.0-17.5) gm/dL Sodium (137-145) mmol/L Glucose (74-99) mg/dL POC Glucose (mg/dL) 143 H 165 H 162 H (70-110) mg/dL Calcium (8.4-10.2) mg/dL Total Bilirubin (0.2-1.3) mg/dL AST (17-59) U/L Alkaline Phosphatase (38-126) U/L Total Protein (6.3-8.2) g/dL Albumin (3.5-5.0) g/dL Arterial Blood Potassium (3.4-4.5) mmol/L Arterial Blood Glucose (75-99) mg/dL Crossmatch 02/01/22 02/01/22 02/01/22 Range/Units 03:58 03:59 03:59 WBC (3.8-10.6) k/uL RBC 3.51 L (4.30-5.90) m/uL Hgb 10.4 L (13.0-17.5) gm/dL Hct 30.5 L (39.0-53.0) % Plt Count 146 L (150-450) k/uL Neutrophils # 9.1 H (1.3-7.7) k/uL Lymphocytes # 0.6 L (1.0-4.8) k/uL Monocytes # (0-1.0) k/uL PT (9.0-12.0) sec INR (<1.2) ABG pH (7.35-7.45) ABG pCO2 (35-45) mmHg ABG pO2 (83-108) mmHg ABG HCO3 (21-25) mmol/L ABG Total CO2 (19-24) mmol/L ABG O2 Saturation (94-97) % ABG Hematocrit (34.0-46.0) % ABG Potassium (3.4-4.5) mmol/L ABG Ionized Calcium (4.5-5.3) mg/dL ABG Glucose (75-99) mg/dL Hemoglobin (13.0-17.5) gm/dL Sodium 134 L (137-145) mmol/L Glucose 135 H (74-99) mg/dL POC Glucose (mg/dL) 143 H (70-110) mg/dL Calcium 8.1 L (8.4-10.2) mg/dL Total Bilirubin (0.2-1.3) mg/dL AST 61 H (17-59) U/L Alkaline Phosphatase (38-126) U/L Total Protein 5.2 L (6.3-8.2) g/dL Albumin 3.4 L (3.5-5.0) g/dL Arterial Blood Potassium (3.4-4.5) mmol/L Arterial Blood Glucose (75-99) mg/dL Crossmatch 02/01/22 02/01/22 02/01/22 Range/Units 04:57 06:03 07:17 WBC (3.8-10.6) k/uL RBC (4.30-5.90) m/uL Hgb (13.0-17.5) gm/dL Hct (39.0-53.0) % Plt Count (150-450) k/uL Neutrophils # (1.3-7.7) k/uL Lymphocytes # (1.0-4.8) k/uL Monocytes # (0-1.0) k/uL PT (9.0-12.0) sec INR (<1.2) ABG pH (7.35-7.45) ABG pCO2 (35-45) mmHg ABG pO2 (83-108) mmHg ABG HCO3 (21-25) mmol/L ABG Total CO2 (19-24) mmol/L ABG O2 Saturation (94-97) % ABG Hematocrit (34.0-46.0) % ABG Potassium (3.4-4.5) mmol/L ABG Ionized Calcium (4.5-5.3) mg/dL ABG Glucose (75-99) mg/dL Hemoglobin (13.0-17.5) gm/dL Sodium (137-145) mmol/L Glucose (74-99) mg/dL POC Glucose (mg/dL) 136 H 146 H 133 H (70-110) mg/dL Calcium (8.4-10.2) mg/dL Total Bilirubin (0.2-1.3) mg/dL AST (17-59) U/L Alkaline Phosphatase (38-126) U/L Total Protein (6.3-8.2) g/dL Albumin (3.5-5.0) g/dL Arterial Blood Potassium (3.4-4.5) mmol/L Arterial Blood Glucose (75-99) mg/dL Crossmatch 02/01/22 02/01/22 Range/Units 08:08 10:10 WBC (3.8-10.6) k/uL RBC (4.30-5.90) m/uL Hgb (13.0-17.5) gm/dL Hct (39.0-53.0) % Plt Count (150-450) k/uL Neutrophils # (1.3-7.7) k/uL Lymphocytes # (1.0-4.8) k/uL Monocytes # (0-1.0) k/uL PT (9.0-12.0) sec INR (<1.2) ABG pH (7.35-7.45) ABG pCO2 (35-45) mmHg ABG pO2 (83-108) mmHg ABG HCO3 (21-25) mmol/L ABG Total CO2 (19-24) mmol/L ABG O2 Saturation (94-97) % ABG Hematocrit (34.0-46.0) % ABG Potassium (3.4-4.5) mmol/L ABG Ionized Calcium (4.5-5.3) mg/dL ABG Glucose (75-99) mg/dL Hemoglobin (13.0-17.5) gm/dL Sodium (137-145) mmol/L Glucose (74-99) mg/dL POC Glucose (mg/dL) 142 H 140 H (70-110) mg/dL Calcium (8.4-10.2) mg/dL Total Bilirubin (0.2-1.3) mg/dL AST (17-59) U/L Alkaline Phosphatase (38-126) U/L Total Protein (6.3-8.2) g/dL Albumin (3.5-5.0) g/dL Arterial Blood Potassium (3.4-4.5) mmol/L Arterial Blood Glucose (75-99) mg/dL Crossmatch Microbiology - Last 24 Hours (Table) 01/30/22 15:20 Nasal Screen MRSA/MSSA - Final Nasal Swab Assessment and Plan Assessment: Postop day #1, status post 3 vessel bypass grafting. Routine postoperative ventilator management, with extubation and less than 6 h ours. Acute non-ST segment elevation myocardial infarction. Significant coronary artery disease, with anticipated bypass grafting, 01/31/2022. History of hypertension. History of hyperlipidemia. No history of any significant pulmonary disease at this time. Plan: Plan dated 01/31/2022. The patient's on function were excellent. He should do well with surgery. He has no significant pulmonary disease to speak of. Did explain my role in the process, he understands that first, the goal is to get him extubated from mechanical ventilation. Second, we will see the patient on a daily and ongoing basis, to make sure that his long stay healthy, and attempt to avoid pneumonia, pleural effusion, atelectasis, lobar collapse. Plan dated 02/01/2022. The patient did well postoperatively. He was extubated in about 4 hours after leaving the operating room. He's currently on 5 L. Chest x-ray, labs, medications are reviewed. He remains on lactated Ringer's at 20 mL an hour, and an insulin drip at 3 units an hour, per protocol. The surgery was performed by Dr. Huynh. We will continue to follow the patient and make recommendations along the way. We encourage deep breathing, coughing, and clearing of secretions. We also recommend hourly use of the incentive spirometer. Time with Patient: Greater than 30
[2022-02-01 12:00] LABS: Glucose,Whole Blood 126 mg/dL (70-110)
--- NOTE | 2022-02-01 12:55 | PN ---
PROGRESS NOTE SUBJECTIVE: This 71-year-old gentleman, admitted with CAD for CABG. No chest pain. No palpitation. OBJECTIVE: VITAL SIGNS: Pulse 65, blood pressure 160/93, respirations 18. CHEST: Clear to auscultation. CARDIOVASCULAR: S1 and S2. ABDOMEN: Soft. NERVOUS SYSTEM: Nonfocal. LABORATORY DATA: Reviewed. ASSESSMENT: 1. Coronary artery disease for CABG. 2. Hypertension. 3. Hyperlipidemia. 4. Multiple medical issues. RECOMMENDATIONS: I recommend to continue current treatment. Closely follow up with Cardiothoracic Surgery. Monitor blood sugars after surgery. Pulmonary followup. Prognosis guarded. Further recommendation to follow. MMODL / IJN: [id number] / MTDD
--- NOTE | 2022-02-01 12:55 | PN ---
PROGRESS NOTE SUBJECTIVE: This 71-year-old gentleman, admitted with CAD for CABG. No chest pain. No palpitation. OBJECTIVE: VITAL SIGNS: Pulse 65, blood pressure 160/93, respirations 18. CHEST: Clear to auscultation. CARDIOVASCULAR: S1 and S2. ABDOMEN: Soft. NERVOUS SYSTEM: Nonfocal. LABORATORY DATA: Reviewed. ASSESSMENT: 1. Coronary artery disease for CABG. 2. Hypertension. 3. Hyperlipidemia. 4. Multiple medical issues. RECOMMENDATIONS: I recommend to continue current treatment. Closely follow up with Cardiothoracic Surgery. Monitor blood sugars after surgery. Pulmonary followup. Prognosis guarded. Further recommendation to follow. MMODL / IJN: [id number] / MTDD
[2022-02-01 13:57] LABS: Glucose,Whole Blood 130 mg/dL (70-110)
[2022-02-01] MEDS ORDERED: FUROSEMIDE 10 MG/ML 2 ML VIAL IV STA (14:19)
[2022-02-01 16:20] LABS: Glucose,Whole Blood 130 mg/dL (70-110)
[2022-02-01] MEDS: DEXMEDETOMIDINE/0.9% NACL(PMX) 400 MCG in EMPTY BAG 1 BAG IV SCH (16:35)
[2022-02-01] MEDS: LACTATED RINGERS 1,000 ML IV SCH (16:35)
[2022-02-01] MEDS ORDERED: DEXTROSE 50% SYRINGE 50 ML IVP PRN ×2 (18:50)
[2022-02-01 20:07] LABS: Glucose,Whole Blood 149 mg/dL (70-110)
[2022-02-01] MEDS: SENNOSIDES-DOCUSATE SODIUM 1 EACH TAB PO SCH (20:10)
[2022-02-01] MEDS: INSULIN ASPART (NovoLOG) 100 UNIT/ML VIAL SQ SCH (20:19)
[2022-02-01 20:42] LABS: Glucose,Whole Blood 96 mg/dL (70-110)
--- NOTE | 2022-02-01 23:55 | CONS ---
CONSULTATION REASON FOR CONSULTATION: Advice regarding hypertension, hyperlipidemia, and other multiple medical issues. HISTORY OF PRESENT ILLNESS: A 71-year-old gentleman with past medical history of hypertension, hyperlipidemia, being followed by Dr. Gutierrez in the outpatient setting, he was found to have 3- vessel coronary artery disease. Patient underwent CABG. The patient was extubated. The patient has chest tube in situ. No chest pain. No palpitation. PAST MEDICAL HISTORY: Hypertension, hyperlipidemia reviewed. CURRENT MEDICATIONS: Reviewed include DuoNeb. The rest of the medication doses are reviewed. ALLERGIES: None. FAMILY HISTORY: History of colon cancer. SOCIAL HISTORY: No history of smoking, current smoking. REVIEW OF SYSTEMS: 14-point review is negative as mentioned earlier. PHYSICAL EXAMINATION: VITAL SIGNS: Pulse is 96, blood pressure 125/69, respirations 11. HEENT: Conjunctivae normal. NECK: No JVD. CARDIOVASCULAR: S1 and S2 muffled. RESPIRATIONS: Breath sounds diminished at the bases. Scattered rhonchi and crackles. ABDOMEN: Soft, LABS: Reviewed. Hemoglobin 10.4. ASSESSMENT: 1. Coronary artery disease status post coronary artery bypass graft. 2. Hypertension. 3. Hyperlipidemia. 4. Obstructive sleep apnea. 5. Multiple medical issues. RECOMMENDATIONS: Continue current management and symptomatic treatment, incentive spirometry. Resume home medication. Monitor blood sugars closely. Closely follow with Cardiothoracic Surgery and further recommendations to follow. MMODL / IJN: [id number] / MARCOD
[2022-02-02] MEDS: HEPARIN SODIUM,PORCINE/PF 5,000 UNIT/0.5 ML SYRINGE SQ SCH ×3 (04:08→20:33)
[2022-02-02 04:38] LABS: Basophils % (A) 0 %; Eosinophils % (A) 1 %; Lymphocytes # (A) 1.1 k/uL (1.0-4.8); Lymphocytes % (A) 17 %; MCH 30.9 pg (25.0-35.0); MCHC 35.8 g/dL (31.0-37.0); MCV 86.3 fL (80.0-100.0); Mean Platelet Volume 8.7; Monocytes # (A) 0.4 k/uL (0-1.0); Monocytes % (A) 5 %; Neutrophils # (A) 5.3 k/uL (1.3-7.7); Neutrophils % (A) 76 %; Platelet Count 134 k/uL (150-450); RBC 2.78 m/uL (4.30-5.90); RDW 13.2 % (11.5-15.5); WBC 6.9 k/uL (3.8-10.6)
[2022-02-02 04:49] LABS: HGB 8.6 gm/dL (13.0-17.5)
[2022-02-02 05:02] LABS: Ionized Calcium 4.6 mg/dL (4.5-5.3)
[2022-02-02 05:11] LABS: ALT 24 U/L (4-49); AST 62 U/L (17-59); African American GFR (CKD) >90 (>60 ml/min/1.73 sqM); Albumin 2.8 g/dL (3.5-5.0); Alkaline Phosphatase 46 U/L (38-126); Anion Gap 4 mmol/L; Blood Urea Nitrogen 21 mg/dL (9-20); Calcium 7.6 mg/dL (8.4-10.2); Carbon Dioxide 28 mmol/L (22-30); Chloride 97 mmol/L (98-107); Glucose 127 mg/dL (74-99); Magnesium 2.1 mg/dL (1.6-2.3); Non-African American GFR(CKD) 84 (>60 ml/min/1.73 sqM); Potassium 4.5 mmol/L (3.5-5.1); Sodium 129 mmol/L (137-145); Total Bilirubin 1.5 mg/dL (0.2-1.3); Total Protein 4.7 g/dL (6.3-8.2)
[2022-02-02] MEDS: KETOROLAC 15 MG/ML 1 ML VIAL IVP SCH ×4 (05:19→23:22)
[2022-02-02 06:38] LABS: Glucose,Whole Blood 154 mg/dL (70-110)
[2022-02-02] MEDS: INSULIN ASPART (NovoLOG) 100 UNIT/ML VIAL SQ SCH ×4 (06:40→20:26)
[2022-02-02] MEDS: PANTOPRAZOLE 40 MG TABLET PO SCH (06:40)
--- NOTE | 2022-02-02 07:11 | XR ---
EXAMINATION TYPE: XR chest 1V portable DATE OF EXAM: 02/02/2022 6:13 AM COMPARISON: Chest radiograph from one day prior. TECHNIQUE: XR chest 1V portable Portable AP radiograph of the chest. CLINICAL INDICATION:Male, 71 years old with history of Post Operative Cardiac Surgery; FINDINGS: Lungs/Pleura: There is no evidence of pleural effusion, focal consolidation, or pneumothorax. Pulmonary vascularity: Unremarkable. Heart/mediastinum: Cardiomediastinal silhouette is unremarkable. Left atrial appendage occlusion caroline ce is present. Musculoskeletal: No acute osseous pathology. Midline sternotomy wires are noted. Other findings: Subcutaneous emphysema identified in the lower neck and over the left pectoralis jc r muscle.. Lines/Tubes: Endotracheal tube with distal tip xx cm above the shreyas Nasogastric tube with its distal tip and side-port projecting under the diaphragm. Left thoracotomy tube is present without evidence of pneumothorax. Drainage tubes with tips projecting over the mediastinum. IMPRESSION: New Subcutaneous emphysema over the left pectoralis muscles lower neck which could be secondary to ai r leak from thoracotomy tubes.
[2022-02-02] MEDS: IPRATROPIUM-ALBUTEROL 3 ML NEB INHALATION SCH ×4 (07:51→20:21)
[2022-02-02] MEDS ORDERED: FUROSEMIDE 10 MG/ML 2 ML VIAL IV STA (08:20)
[2022-02-02] MEDS: CLOPIDOGREL 75 MG TAB PO SCH (08:32)
[2022-02-02] MEDS: ATORVASTATIN 40 MG TAB PO SCH (08:32)
[2022-02-02] MEDS: ASPIRIN 325 MG TAB PO SCH (08:32)
[2022-02-02] MEDS: METOPROLOL TARTRATE 50 MG TAB PO SCH ×2 (08:33→21:46)
[2022-02-02] MEDS: MUPIROCIN 2% OINT 22 GM TUBE NASAL SCH ×2 (08:50→20:33)
--- NOTE | 2022-02-02 09:18 | P.PN ---
Subjective Progress Note Date: 02/02/22 Principal diagnosis: Triple-vessel coronary artery disease, non-ST elevated myocardial infarction this admission. Past medical history significant for hypertension, hyperlipidemia, obstructive sleep apnea without CPAP use, family history of early onset coronary artery disease with his dad having a myocardial infarction at age 45, anxiety and remote history of nicotine dependence in which he quit smoking over 8 years ago. POD #2 Off pump coronary artery bypass grafting x 3. Left internal mammary artery to left anterior descending coronary artery, a reverse greater saphenous vein graft to 1st obtuse marginal coronary artery, a reverse greater saphenous vein graft to posterior descending coronary artery, Left atrial appendage ligation with #35 AtriClip, endoscopic bilateral greater saphenous vein harvest, graft flow measurements using [employer]-stim system, and intraoperative transesophageal echocardiogram performed by anesthesia. Postoperative acute blood loss anemia, expected given hemodilution. The patient was seen and examined today 02/02/2022 at his bedside in intensive care unit. Denies any complaints of shortness of breath at this time although is complaining of some surgical type pain to his chest tube insertion sites, rating his pain 3-4 out of 10 on the pain scale. Currently sitting up to the bedside chair, is awake, alert, oriented 3 and is in no acute apparent distress. He remains hemodynamically stable and is currently on no inotropic pressure support. Right IJ cordis remains in place with continuous CVP monitoring, current CVP pressure 8 mmHg. Oxygen saturations are 96% on 2 L nasal cannula and he is achieving 1500 mL on his incentive spirometry was encouraged. Bedside telemetry is showing sinus tachycardia heart rate 116 BPM. Ventricular epicardial pacemaker wires remain in place and are connected to bedside portable pacemaker generator on a VVI backup of 50 BPM. He reports he has been up invading in intensive care unit hallway with standby assistance with nursing and therapy staff and tolerating the walks well. Mediastinal chest tube, left pleural chest tube and right pleural Romero drain remain in place to low continuous wall suction -20 cm H2O. Intermittent air leak present to his mediastinal chest tube, no air leak from his left pleural or right pleural Romero drain. Mediastinal chest tube is draining thin serosanguineous drainage with 110 mL output in the last 8 hours and 330 mL output in the last 24 hours. Left and right pleural chest tubes draining thin serosanguineous drainage with 200 mL output in the last 8 hours and 350 mL output in the last 24 hours. Laboratory results today show a WBC count of 6.9, hemoglobin 8.6, hematocrit 24.0, platelets 134, sodium is 129, potassium is 4.5, chloride 97, CO2 28, BUN 21, creatinine 0.92, glucose 126, calcium 7.6, ionized calcium 4.6, magnesium 2.1, total bilirubin 1.5 and AST is 62. Objective - Vital Signs Vital signs: Vital Signs Temp 98.7 F 02/02/22 04:00 Pulse 106 H 02/02/22 08:04 Resp 14 02/02/22 07:00 BP 110/57 02/02/22 06:30 Pulse Ox 96 02/02/22 07:00 FiO2 50 01/31/22 23:45 Intake & Output 02/01/22 02/02/22 02/02/22 18:59 06:59 18:59 Intake Total 1121.422 438 Output Total 835 1035 Balance 286.422 -597 Weight 117.6 kg 118.8 kg Intake: IV 395 438 Lactated Ringers 1,000 ml 270 260 @ 50 mls/hr IV .Q20H [facility] Rx#:[id number] Pressure bag 75 78 ceFAZolin 2 gm In Sodium 50 100 Chloride 0.9% 50 ml @ 100 mls/hr IVPB ONCE ONE Rx# :[id number] Intake, IV Titration 6.422 Amount Insulin Regular 100 unit 6.422 In Sodium Chloride 0.9% 100 ml @ Per Protocol IV .Q0M [facility] Rx#:[id number] Oral 720 Output: Chest Tube Drainage 420 370 Mediastinal chest tube [address] chest 210 210 tube Urine 415 665 Other: Voiding Method Indwelling Catheter Indwelling Catheter ABP, PAP, CO, CI - Last Documented Arterial Blood Pressure 123/45 Pulmonary Artery Pressure 20/11 Cardiac Output 5.7 Cardiac Index 2.4 - Exam CONSTITUTIONAL: Sitting up to the bedside chair in the intensive care unit, appears comfortable, cooperative, no apparent acute distress. HEENT: Neck is supple, no JVD, no lymphadenopathy. Right IJ Cordis in place and functioning. RESPIRATORY: Lungs sounds essentially clear throughout, diminished to his bilateral bases. Respirations are symmetrical and nonlabored. Currently on 2 L nasal cannula with oxygen saturations 96%. Able to achieve 1500 mL on his incentive spirometry. Strong cough. CARDIOVASCULAR: Regular rhythm and rate. S1 and S2 present, negative for S3, gallop or murmur. Sternum is stable. Palpable peripheral pulses bilaterally, no edema to his bilateral lower extremities. No calf pain or tenderness noted. Heart hugger in place with patient demonstrating appropriate use. Knee-high BHAVANI hose and sequential compression devices in place to his bilateral lower extremities. GASTROINTESTINAL: Abdomen soft, nontender, nondistended. Active bowel sounds present 4 quadrants. Tolerating diet. Passing flatus. No guarding or rigidity. GENITOURINARY: Schaeffer present draining clear, yellow urine. Urine output 450 mL in the last 8 hours. INTEGUMENTARY: Skin is warm and dry with no evidence of clubbing or cyanosis. Midline sternal incision clean dry and well approximated, covered with dry intact dressing. Bilateral lower extremity EVH sites well approximated without redness or drainage. NEUROLOGIC: Cranial nerves II through XII intact. No focal deficits. MUSKULOSKELETAL: Able to move all extremities, strength equal bilaterally. PSYCHIATRIC: Alert and oriented to person place and time, appropriate affect, intact judgment and insight. INVASIVE LINES AND TUBES: Mediastinal/left pleural chest tubes and right pleural Romero chest tube present and connected to low continuous wall suction, no air leak present to the pleural chest tubes although there is an intermittent air leak to the mediastinal chest tube. Mediastinal tube with 110 mL of thin serosanguineous drainage overnight, 330 mL output in the last 24 hours. Left pleural chest tube and right pleural Romero drain with 200 mL of thin serosanguineous drainage overnight, 350 mL output since surgery. Ventricular epicardial pacemaker wires present, connected to generator, VVI backup rate 50 bpm. Right internal jugular Cordis, right radial arterial line present. Current CVP 8 mmHg. - Allied health notes Allied health notes reviewed: nursing - Labs CBC & Chem 7: 02/02/22 04:17 02/02/22 04:17 Labs: Abnormal Lab Results - Last 24 Hours (Table) 02/01/22 02/01/22 02/01/22 Range/Units 10:10 11:58 13:56 RBC (4.30-5.90) m/uL Hgb (13.0-17.5) gm/dL Hct (39.0-53.0) % Plt Count (150-450) k/uL Sodium (137-145) mmol/L Chloride (98-107) mmol/L BUN (9-20) mg/dL Glucose (74-99) mg/dL POC Glucose (mg/dL) 140 H 126 H 130 H (70-110) mg/dL Calcium (8.4-10.2) mg/dL Total Bilirubin (0.2-1.3) mg/dL AST (17-59) U/L Total Protein (6.3-8.2) g/dL Albumin (3.5-5.0) g/dL 02/01/22 02/01/22 02/02/22 Range/Units 16:19 20:04 04:17 RBC 2.78 L (4.30-5.90) m/uL Hgb 8.6 L D (13.0-17.5) gm/dL Hct 24.0 L (39.0-53.0) % Plt Count 134 L (150-450) k/uL Sodium (137-145) mmol/L Chloride (98-107) mmol/L BUN (9-20) mg/dL Glucose (74-99) mg/dL POC Glucose (mg/dL) 130 H 149 H (70-110) mg/dL Calcium (8.4-10.2) mg/dL Total Bilirubin (0.2-1.3) mg/dL AST (17-59) U/L Total Protein (6.3-8.2) g/dL Albumin (3.5-5.0) g/dL 02/02/22 02/02/22 Range/Units 04:17 06:36 RBC (4.30-5.90) m/uL Hgb (13.0-17.5) gm/dL Hct (39.0-53.0) % Plt Count (150-450) k/uL Sodium 129 L (137-145) mmol/L Chloride 97 L (98-107) mmol/L BUN 21 H (9-20) mg/dL Glucose 127 H (74-99) mg/dL POC Glucose (mg/dL) 154 H (70-110) mg/dL Calcium 7.6 L (8.4-10.2) mg/dL Total Bilirubin 1.5 H (0.2-1.3) mg/dL AST 62 H (17-59) U/L Total Protein 4.7 L (6.3-8.2) g/dL Albumin 2.8 L (3.5-5.0) g/dL - Imaging and Cardiology Chest x-ray: report reviewed, image reviewed Assessment and Plan Assessment: 1. Multivessel coronary artery disease, status post three-vessel coronary artery bypass grafting surgery 2. Non-ST elevated myocardial infarction this admission, with serial troponins as high as 0.258 3. History of hypertension 4. History of hyperlipidemia 5. Obstructive sleep apnea without home CPAP use 6. Family history of early onset coronary artery disease with his dad having a myocardial infarction at age 45 7. Remote history of nicotine dependence quit smoking 8 years ago, preoperative FEV1 81% of predicted value, with a base volume of 2.66 L 8. Anxiety 9. Chronic lower back pain 10. Postoperative acute blood loss anemia, secondary to hemodilution Plan: 1. Continue to maximize medical therapy with full strength aspirin, statin, Plavix and beta barbara. We will increase metoprolol tartrate 50 mg by mouth twice a day. 2. Lasix 20 mg IV 1 now. 3. Wean O2 as tolerated. Encourage incentive spirometry 10 times every hour while awake. Bronchodilators per pulmonology. 4. Increase activity, ambulate as tolerated. PT/OT/cardiac rehab following. 5. Will monitor daily labs and chest x-ray. Electrolyte replacement per protocol. 6. Pain control with current medication regimen. 7. Insulin management per internal medicine. Patient is not diabetic, preoperative hemaglobin A1c 6.1%. 8. Discontinue right IJ cordis. 9. Removed from right pleural Romero drain. Keep mediastinal and right pleural chest tube in place to low continuous wall suction -20 cm H2O. 10. Remove Schaeffer catheter, continue to record strict accurate intake and output. His bladder scan every 6 hours and when necessary, if greater than or equal to 300 mL of urine a straight cath. Daily weights. 11. Ventricular epicardial pacemaker wires removed without incident. Bed rest for 1 hour post pacemaker wire removal. 12. More recommendations to follow based on patient's clinical course. Time with Patient: Greater than 30
[2022-02-02] MEDS ORDERED: ACETAMINOPHEN TAB 500 MG TAB PO PRN (09:59)
[2022-02-02] MEDS: guaiFENesin 600 MG TABLET.ER PO SCH ×2 (10:47→20:33)
[2022-02-02 11:16] LABS: Glucose,Whole Blood 81 mg/dL (70-110)
--- NOTE | 2022-02-02 11:29 | P.PN ---
Subjective Progress Note Date: 02/02/22 Principal diagnosis: Coronary artery disease. Pulmonary consult dated 01/31/2022. 71-year-old male who presented to the emergency department on January 29, complaining of chest pain for 3 days. The patient was going on for 3 days prior to admission. It was clearly exertional in nature. He apparently initially noted when he was loading a drywall into his truck. When he sat down, the symptoms would resolve. He did have some mild shortness of breath along with it. No radiation of the pain. He had a heart catheterization in 2014, and apparently had a small blockage that did not need a stent at that time. The patient was admitted with an acute non-ST segment elevation myocardial infarction. Apparently, the patient had a cardiac catheterization, although I do not see the operative report, and the patient is scheduled to have bypass grafting later today. I introduced myself to the patient, and told him that my job was to initially, get the patient extubated from mechanical ventilation, and then secondly, the follow the patient, throughout his hospitalization, to make sure that his lungs are healthy. The patient does not have a history of any lung issues. He did smoke in the distant past. 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 Laboratory data from yesterday shows a white count of 4.9, hemoglobin 13.6, hematocrit 39.7, and a platelet count of 182,000. Sodium 136, potassium 4.2, chlorides 102, CO2 26, BUN 20, creatinine 0.89. Chest CT showed atheros clerotic vascular disease, without any suspicious pulmonary masses or lesion. Progress note dated 02/01/2022. 71-year-old male seen yesterday in consultation. The patient is postop day #1, status post three-vessel bypass grafting, including LIND to LAD bypass, saphenous vein graft to obtuse marginal 1, and saphenous vein graft to posterior descending artery. Currently, the patient's doing well. He was extubated in less than 6 hours after the operating room. He is currently on 5 L nasal can nula. He is getting lactated Ringer's at 20 mL an hour. He is also on an insulin drip at 3 units an hour. The surgery was done by Dr. Huynh. White count 10.5, hemoglobin 10.4, hematocrit 30.5, and platelet count 146,000. Sodium 134, potassium 4.5, chlorides 101, CO2 24, BUN 16, creatinine 0.86. Albumin is 3.4. Chest x-ray shows interval extubation, low lung volumes, cardiomegaly, and some basilar atelectasis. Progress note dated 02/02/2022. 71-year-old male, who is postop day #2, status post three-vessel bypass grafting. The patient's doing well. He is resting comfortably. He is on 2 L of oxygen. He's not receiving any IV fluids. He had a pretty uneventful night. The surgery was done by Dr. Huynh. White count 6.9, hemoglobin 8.6, hematocrit 24, platelet count 134,000. Sodium 129, potassium 4.5, chlorides 97, CO2 28, BUN 21, creatinine 0.92. Albumin is 2.8. Calcium 7.6. Chest x-ray shows some subcutaneous emphysema over the left pectoralis muscle, and in the lower neck. No clearcut pneumothorax is seen. Post surgical changes are also noted. There is some bibasilar atelectasis. Objective - Vital Signs Vital signs: Vital Signs Temp 98.7 F 02/02/22 04:00 Pulse 96 02/02/22 11:24 Resp 18 02/02/22 11:00 BP 129/69 02/02/22 11:00 Pulse Ox 94 L 02/02/22 11:00 FiO2 50 01/31/22 23:45 Intake & Output 02/01/22 02/02/22 02/02/22 18:59 06:59 18:59 Intake Total 1121.422 438 52 Output Total 835 1035 285 Balance 286.422 -597 -233 Weight 117.6 kg 118.8 kg Intake: IV 395 438 52 Lactated Ringers 1,000 ml 270 260 40 @ 50 mls/hr IV .Q20H [facility] Rx#:[id number] Pressure bag 75 78 12 ceFAZolin 2 gm In Sodium 50 100 Chloride 0.9% 50 ml @ 100 mls/hr IVPB ONCE ONE Rx# :[id number] Intake, IV Titration 6.422 Amount Insulin Regular 100 unit 6.422 In Sodium Chloride 0.9% 100 ml @ Per Protocol IV .Q0M [facility] Rx#:[id number] Oral 720 Output: Chest Tube Drainage 420 370 110 Left Pleural Chest Tube 20 Mediastinal chest tube 210 [address] chest 210 210 50 tube Urine 415 665 175 Other: Voiding Method Indwelling Catheter Indwelling Catheter ABP, PAP, CO, CI - Last Documented Arterial Blood Pressure 125/59 Pulmonary Artery Pressure 20/11 Cardiac Output 5.7 Cardiac Index 2.4 - Exam No acute distress, oriented 3. The patient's currently on 2 L nasal cannula. No conversational dyspnea or use of accessory muscles. HEENT examination is grossly unremarkable. Neck supple. Full range of motion. No adenopathy thyromegaly or neck vein distention. Cardiovascular examination reveals regular rhythm rate. S1-S2 normal. No S3 or S4. No discernible murmur noted. Heart rate 96 bpm. Lungs reveal clear breath sounds. Breath sounds are equal bilaterally. No adventitious lung sounds including wheezes rhonchi or crackles. Abdomen soft bowel sounds are heard. No masses or tenderness. Extremities are intact. No cyanosis clubbing or edema. Skin is without rash or lesion. Neurologic examination is brief but nonfocal. - Labs CBC & Chem 7: 02/02/22 04:17 02/02/22 04:17 Labs: Abnormal Lab Results - Last 24 Hours (Table) 02/01/22 02/01/22 02/01/22 Range/Units 11:58 13:56 16:19 RBC (4.30-5.90) m/uL Hgb (13.0-17.5) gm/dL Hct (39.0-53.0) % Plt Count (150-450) k/uL Sodium (137-145) mmol/L Chloride (98-107) mmol/L BUN (9-20) mg/dL Glucose (74-99) mg/dL POC Glucose (mg/dL) 126 H 130 H 130 H (70-110) mg/dL Calcium (8.4-10.2) mg/dL Total Bilirubin (0.2-1.3) mg/dL AST (17-59) U/L Total Protein (6.3-8.2) g/dL Albumin (3.5-5.0) g/dL 02/01/22 02/02/22 02/02/22 Range/Units 20:04 04:17 04:17 RBC 2.78 L (4.30-5.90) m/uL Hgb 8.6 L D (13.0-17.5) gm/dL Hct 24.0 L (39.0-53.0) % Plt Count 134 L (150-450) k/uL Sodium 129 L (137-145) mmol/L Chloride 97 L (98-107) mmol/L BUN 21 H (9-20) mg/dL Glucose 127 H (74-99) mg/dL POC Glucose (mg/dL) 149 H (70-110) mg/dL Calcium 7.6 L (8.4-10.2) mg/dL Total Bilirubin 1.5 H (0.2-1.3) mg/dL AST 62 H (17-59) U/L Total Protein 4.7 L (6.3-8.2) g/dL Albumin 2.8 L (3.5-5.0) g/dL 02/02/22 Range/Units 06:36 RBC (4.30-5.90) m/uL Hgb (13.0-17.5) gm/dL Hct (39.0-53.0) % Plt Count (150-450) k/uL Sodium (137-145) mmol/L Chloride (98-107) mmol/L BUN (9-20) mg/dL Glucose (74-99) mg/dL POC Glucose (mg/dL) 154 H (70-110) mg/dL Calcium (8.4-10.2) mg/dL Total Bilirubin (0.2-1.3) mg/dL AST (17-59) U/L Total Protein (6.3-8.2) g/dL Albumin (3.5-5.0) g/dL Assessment and Plan Assessment: Postop day #2, status post 3 vessel bypass grafting. Routine postoperative ventilator management, with extubation and less than 6 hours. Acute non-ST segment elevation myocardial infarction. Significant coronary artery disease, with anticipated bypass grafting, 01/31/2022. History of hypertension. History of hyperlipidemia. No history of any significant pulmonary disease at this time. Plan: Plan dated 01/31/2022. The patient's on function were excellent. He should do well with surgery. He has no significant pulmonary disease to speak of. Did explain my role in the process, he understands that first, the goal is to get him extubated from mechanical ventilation. Second, we will see the patient on a daily and ongoing basis, to make sure that his long stay healthy, and attempt to avoid pneumonia, pleural effusion, atelectasis, lobar collapse. Plan dated 02/01/2022. The patient did well postoperatively. He was extubated in about 4 hours after leaving the operating room. He's currently on 5 L. Chest x-ray, labs, medicati ons are reviewed. He remains on lactated Ringer's at 20 mL an hour, and an insulin drip at 3 units an hour, per protocol. The surgery was performed by Dr. Huynh. We will continue to follow the patient and make recommendations along the way. We encourage deep breathing, coughing, and clearing of secretions. We also recommend hourly use of the incentive spirometer. Plan dated 02/02/2022. The patient remains on oxygen at 2 L. No IV fluids. Today is postop day #2. The patient had a three-vessel bypass grafting. The surgery was done by Dr. Huynh. The patient was extubated in a timely fashion. We will continue to follow the patient make recommendations along the way. The patient is e ncouraged to take deep breaths, cough, and clear secretions, and to use the incentive spirometer, every hour while awake. Time with Patient: Greater than 30
--- NOTE | 2022-02-02 13:17 | PN ---
PROGRESS NOTE SUBJECTIVE: Mr. Singh is a 71-year-old gentleman, who underwent aortocoronary bypass surgery yesterday performed by Dr. Huynh. He had an off-pump bypass with a LIND to LAD, saphenous vein graft to the first obtuse marginal, and also PDA branch of RCA. The patient postprocedure is doing well. He also had a left atrial appendage ligation. He is extubated, hemodynamically stable, doing well with decent urine output. OBJECTIVE: VITAL SIGNS: Stable. NECK: No JVD. HEART: S1, S2 heard normally. Pericardial rub is evident. LUNGS: Reveal bilateral air entry. ABDOMEN: Exam otherwise is unremarkable. LOWER EXTREMITIES: Exam otherwise is unremarkable. PLAN: Plan is to continue current medical regimen, supportive care, incentive spirometry, and pulmonary toilet. MMODL / IJN: [id number] /
--- NOTE | 2022-02-02 15:28 | P.PN ---
Subjective Progress Note Date: 02/02/22 This is a 71-year-old male currently in the ICU underwent CABG 3 secondary to three-vessel coronary artery disease. Patient currently maintained on 2 L via nasal cannula and denies worsening shortness of breath. Patient reports generalized edema noted of the lower extremities and upper extremities although reports improvement. Patient with incentive spirometer at the bedside and encourage the patient to continue using at least 10 times every hour while awake. Patient continues with chest tubes at this time and is currently sitting up in the chair. Physical therapy following the patient. Hemoglobin is 8.6 today and sodium slightly low at 129 with a potassium of 4.5 and mag is 2.1. Patient denies worsening shortness of breath, reports some chest wall pain, and denies any nausea or vomiting. Patient is tolerating diet. Patient is afebrile. Review of systems: Constitutional: No reports of fatigue, fever, or chills Cardiovascular: No reports of chest pain or palpitations Respiratory: No reports of shortness of breath or cough GI: No reports of nausea, no reports of of vomiting : No reports of dysuria or retention Neurovascular: reports of generalized weakness, some generalized edema of the upper and lower extremities All medications have been reviewed PHYSICAL EXAMINATION: GENERAL: The patient is alert and oriented x4, Well developed, well nourished. Obese HEENT: Pupils are round and equally reacting to light. EOMI. no scleral icterus. No conjunctival pallor. Normocephalic, atraumatic. No pharyngeal erythema. No thyromegaly. CARDIOVASCULAR: S1 and S2 muffled PULMONARY: diminished breath sounds bilaterally with no wheezing or rhonchi noted. ABDOMEN: soft. Nontender on exam. obese. non-distended, normoactive bowel sounds. No palpable organomegaly. MUSCULOSKELETAL: No joint swelling or deformity. EXTREMITIES: No cyanosis, clubbing, or pedal edema. NEUROLOGICAL: Gross neurological examination did not reveal any focal deficits. Diffuse weakness SKIN: No rashes. Assessment: Coronary artery disease status post coronary artery bypass graft Hypertension Hyperlipidemia Obstructive sleep apnea GI prophylaxis DVT prophylaxis Full code Plan: Recommend to continue with current medications and management per cardiothoracic services. Patient is currently sitting up in the chair with incentive spirometer at the table and encourage the patient to continue using at least 10 times every hour while awake. Patient is maintained on aspirin and Plavix along with subcutaneous Lovenox with cardiology following as well. Patient is maintained on Accu-Cheks before meals and at bedtime and recommend continue sliding scale as needed. Encouraged oral intake and increased activity as tolerated. Patient was generalized edema of the upper lower extremities with some facial noticed as well on exam and was given a dose of Lasix today. Chest x-ray today shows some new subcutaneous emphysema over the left pectoralis muscles and lower neck which could be secondary to air leak from the thoracotomy tubes cardiothoracic's is aware. Recommend repeat x-ray in a.m. Recommend repeat labs in the a.m. and will continue to follow along closely with you. Jennie jolley for this consultation. The impression and plan of care has been dictated by Cady Plummer, nurse practitioner as directed. Dr. Trent MD I have performed a history and examination and MDM of this patient, discussed the same with the dictator, and agree with the dictator's assessment and plan as written ,documented as a scribe. Based on total visit time, I have performed more than 50% of the visit. Any additional findings or plans will be noted. Objective - Vital Signs Vital signs: Vital Signs Temp 98.3 F 02/02/22 12:00 Pulse 105 H 02/02/22 15:21 Resp 15 02/02/22 15:00 BP 115/81 02/02/22 15:00 Pulse Ox 91 L 02/02/22 15:00 FiO2 50 01/31/22 23:45 Intake & Output 02/01/22 02/02/22 02/02/22 18:59 06:59 18:59 Intake Total 1121.422 438 52 Output Total 835 1035 575 Balance 286.422 -597 -523 Weight 117.6 kg 118.8 kg Intake: IV 395 438 52 Lactated Ringers 1,000 ml 270 260 40 @ 50 mls/hr IV .Q20H [facility] Rx#:[id number] Pressure bag 75 78 12 ceFAZolin 2 gm In Sodium 50 100 Chloride 0.9% 50 ml @ 100 mls/hr IVPB ONCE ONE Rx# :[id number] Intake, IV Titration 6.422 Amount Insulin Regular 100 unit 6.422 In Sodium Chloride 0.9% 100 ml @ Per Protocol IV .Q0M [facility] Rx#:[id number] Oral 720 Output: Chest Tube Drainage 420 370 200 Left Pleural Chest Tube 70 Mediastinal chest tube 210 [address] chest 210 210 50 tube Urine 415 665 375 Other: Voiding Method Indwelling Catheter Indwelling Catheter Urinal ABP, PAP, CO, CI - Last Documented Arterial Blood Pressure 125/59 Pulmonary Artery Pressure 20/11 Cardiac Output 5.7 Cardiac Index 2.4 - Labs CBC & Chem 7: 02/02/22 04:17 02/02/22 04:17 Labs: Abnormal Lab Results - Last 24 Hours (Table) 02/01/22 02/01/22 02/02/22 Range/Units 16:19 20:04 04:17 RBC 2.78 L (4.30-5.90) m/uL Hgb 8.6 L D (13.0-17.5) gm/dL Hct 24.0 L (39.0-53.0) % Plt Count 134 L (150-450) k/uL Sodium (137-145) mmol/L Chloride (98-107) mmol/L BUN (9-20) mg/dL Glucose (74-99) mg/dL POC Glucose (mg/dL) 130 H 149 H (70-110) mg/dL Calcium (8.4-10.2) mg/dL Total Bilirubin (0.2-1.3) mg/dL AST (17-59) U/L Total Protein (6.3-8.2) g/dL Albumin (3.5-5.0) g/dL 02/02/22 02/02/22 Range/Units 04:17 06:36 RBC (4.30-5.90) m/uL Hgb (13.0-17.5) gm/dL Hct (39.0-53.0) % Plt Count (150-450) k/uL Sodium 129 L (137-145) mmol/L Chloride 97 L (98-107) mmol/L BUN 21 H (9-20) mg/dL Glucose 127 H (74-99) mg/dL POC Glucose (mg/dL) 154 H (70-110) mg/dL Calcium 7.6 L (8.4-10.2) mg/dL Total Bilirubin 1.5 H (0.2-1.3) mg/dL AST 62 H (17-59) U/L Total Protein 4.7 L (6.3-8.2) g/dL Albumin 2.8 L (3.5-5.0) g/dL
[2022-02-02 16:34] LABS: Glucose,Whole Blood 138 mg/dL (70-110)
[2022-02-02] MEDS ORDERED: METOPROLOL TARTRATE 25 MG TAB PO STA (18:06)
[2022-02-02 20:24] LABS: Glucose,Whole Blood 147 mg/dL (70-110)
[2022-02-02] MEDS: SENNOSIDES-DOCUSATE SODIUM 1 EACH TAB PO SCH (20:33)
[2022-02-03] MEDS: KETOROLAC 15 MG/ML 1 ML VIAL IVP SCH ×4 (05:57→23:13)
[2022-02-03] MEDS: HEPARIN SODIUM,PORCINE/PF 5,000 UNIT/0.5 ML SYRINGE SQ SCH ×3 (05:58→20:31)
[2022-02-03] MEDS: bisacodyL 10 MG SUPP RECTAL PRN (05:58)
[2022-02-03] MEDS: PANTOPRAZOLE 40 MG TABLET PO SCH (05:58)
[2022-02-03 06:36] LABS: Basophils % (A) 0 %; Eosinophils # (A) 0.1 k/uL (0-0.7); Eosinophils % (A) 2 %; HCT 25.2 % (39.0-53.0); HGB 8.5 gm/dL (13.0-17.5); Lymphocytes # (A) 1.5 k/uL (1.0-4.8); Lymphocytes % (A) 19 %; MCH 29.9 pg (25.0-35.0); MCHC 33.9 g/dL (31.0-37.0); Mean Platelet Volume 9.3; Monocytes # (A) 0.3 k/uL (0-1.0); Monocytes % (A) 4 %; Neutrophils # (A) 5.6 k/uL (1.3-7.7); Neutrophils % (A) 74 %; Platelet Count 162 k/uL (150-450); RBC 2.86 m/uL (4.30-5.90); RDW 13.5 % (11.5-15.5); WBC 7.6 k/uL (3.8-10.6)
[2022-02-03 06:47] LABS: ALT 21 U/L (4-49); AST 43 U/L (17-59); African American GFR (CKD) >90 (>60 ml/min/1.73 sqM); Albumin 2.9 g/dL (3.5-5.0); Alkaline Phosphatase 50 U/L (38-126); Anion Gap 7 mmol/L; Blood Urea Nitrogen 21 mg/dL (9-20); Calcium 7.8 mg/dL (8.4-10.2); Carbon Dioxide 28 mmol/L (22-30); Chloride 94 mmol/L (98-107); Glucose 119 mg/dL (74-99); Non-African American GFR(CKD) 84 (>60 ml/min/1.73 sqM); Potassium 4.6 mmol/L (3.5-5.1); Sodium 129 mmol/L (137-145); Total Bilirubin 1.5 mg/dL (0.2-1.3); Total Protein 5.1 g/dL (6.3-8.2)
[2022-02-03 06:54] LABS: Glucose,Whole Blood 124 mg/dL (70-110)
[2022-02-03] MEDS ORDERED: FUROSEMIDE 10 MG/ML 2 ML VIAL IV STA (06:54)
[2022-02-03] MEDS: INSULIN ASPART (NovoLOG) 100 UNIT/ML VIAL SQ SCH ×4 (06:54→20:31)
[2022-02-03] MEDS ORDERED: CALCIUM GLUCONATE IN NACL 2 GM in SALINE 1 100ML.BAG IVPB ONE (07:00)
--- NOTE | 2022-02-03 07:09 | XR ---
EXAMINATION TYPE: XR chest 1V portable DATE OF EXAM: 02/03/2022 6:01 AM COMPARISON: Chest radiographs from 02/02/2022. TECHNIQUE: XR chest 1V portable Portable AP radiograph of the chest. CLINICAL INDICATION:Male, 71 years old with history of Post op CABG; FINDINGS: Lungs/Pleura: There is no evidence of pleural effusion, focal consolidation, or pneumothorax. Pulmonary vascularity: Unremarkable. Heart/mediastinum: Cardiomediastinal silhouette is enlarged and stable. Left atrial appendage occlus ion device is present. Musculoskeletal: No acute osseous pathology. Midline sternotomy wires are noted and stable. Other findings: Decreased subcutaneous emphysema identified in the lower neck and left pectoralis peter or muscle. Lines/Tubes: Stable left thoracotomy tube. Drainage catheter overlies mediastinum. Additional previous mediastinal drainage catheters no longer visualized. IMPRESSION: 1. Decreased subcutaneous emphysema from prior examination. 2. Mediastinal and thoracotomy tubes with no sizable pneumothorax.
--- NOTE | 2022-02-03 07:49 | P.PN ---
Subjective Progress Note Date: 02/03/22 Principal diagnosis: Triple-vessel coronary artery disease, non-ST elevated myocardial infarction this admission. Previuos medical history of hypertension, hyperlipidemia, previous tobacco dependence, obstructive sleep apnea without CPAP use, anxiety, family history of early onset coronary artery disease with his dad having a myocardial infarction at age 45. POD #3 Off pump coronary artery bypass grafting x 3. Left internal mammary artery to left anterior descending coronary artery, a reverse greater saphenous vein graft to 1st obtuse marginal coronary artery, a reverse greater saphenous vein graft to posterior descending coronary artery, Left atrial appendage ligation with #35 AtriClip, endoscopic bilateral greater saphenous vein harvest, graft flow measurements using medi-stim system, and intraoperative transesophageal echocardiogram performed by anesthesia. Postoperative acute blood loss anemia, expected given hemodilution. The patient was seen and examined sitting up in a recliner in the intensive care unit in no acute distress. States pain is controlled on current medication regimen, has taken no narcotics, denies shortness of breath. Remains in sinus rhythm, hemodynamically stable. Remains on 2 L nasal cannula and able to achieve 1500 mL on his incentive spirometry. He has been ambulatory without difficulty. Mediastinal and left pleural chest tubes remain to continuous wall suction, no air leaks present this morning. No other new concerns. Objective - Vital Signs Vital signs: Vital Signs Temp 97.6 F 02/03/22 04:00 Pulse 92 02/03/22 07:00 Resp 16 02/03/22 07:00 BP 126/77 02/03/22 07:00 Pulse Ox 94 L 02/03/22 07:00 FiO2 50 01/31/22 23:45 Intake & Output 02/02/22 02/03/22 02/03/22 18:59 06:59 18:59 Intake Total 52 540 Output Total 790 1230 Balance -738 -690 Weight 117.5 kg Intake: IV 52 0 Lactated Ringers 1,000 ml 40 0 @ 50 mls/hr IV .Q20H [facility] Rx#:[id number] Pressure bag 12 Oral 540 Output: Chest Tube Drainage 240 130 Left Pleural Chest Tube 90 50 Mediastinal chest tube [address] chest 50 tube Urine 550 1100 Other: Voiding Method Urinal Urinal # Voids 0 ABP, PAP, CO, CI - Last Documented Arterial Blood Pressure 125/59 Pulmonary Artery Pressure 20/11 Cardiac Output 5.7 Cardiac Index 2.4 - Exam CONSTITUTIONAL: Appears comfortable, cooperative, no acute distress RESPIRATORY: Lungs sounds diminished bilaterally. Respirations even, nonlabored. Currently on 2 L nasal cannula with oxygen saturation 96%. Able to achieve 1500 mL on incentive spirometry. Strong cough. CARDIOVASCULAR: S1, S2 present. Regular rate and rhythm, sinus rhythm on telemetry. Sternum stable. Palpable peripheral pulses bilaterally. Trace generalized edema present. No calf pain or tenderness noted. Heart hugger in place with patient demonstrating appropriate use. Antiembolism stockings, SCDs present. GASTROINTESTINAL: Abdomen soft, nontender, nondistended. Active bowel sounds present 4 quadrants. Tolerating diet. Positive flatus GENITOURINARY: Schaeffer discontinued yesterday. Output 1650 mL in the last 24 hours INTEGUMENTARY: Skin is warm and dry with evidence of good perfusion. Anterior chest incision well approximated and covered with dry intact dressing. Bilateral lower extremity EVH sites well approximated without redness or drainage. NEUROLOGIC: Cranial nerves II through XII intact MUSKULOSKELETAL: Able to move all extremities, strength equal bilaterally, gait normal PSYCHIATRIC: Alert and oriented to person place and time, appropriate affect, intact judgment and insight INVASIVE LINES AND TUBES: Mediastinal/left pleural chest tubes present and connected to wall suction, no air leaks present. Mediastinal tube with 30 mL serosanguineous drainage overnight, 200 mL in the last 24 hours. Left pleural chest tube with 45 mL serosanguineous drainage overnight, 160 mL in the last 24 hours. - Allied health notes Allied health notes reviewed: nursing - Labs CBC & Chem 7: 02/03/22 05:43 02/03/22 05:43 Labs: Abnormal Lab Results - Last 24 Hours (Table) 02/02/22 02/02/22 02/03/22 Range/Units 16:32 20:23 05:43 RBC 2.86 L (4.30-5.90) m/uL Hgb 8.5 L (13.0-17.5) gm/dL Hct 25.2 L (39.0-53.0) % Sodium (137-145) mmol/L Chloride (98-107) mmol/L BUN (9-20) mg/dL Glucose (74-99) mg/dL POC Glucose (mg/dL) 138 H 147 H (70-110) mg/dL Calcium (8.4-10.2) mg/dL Total Bilirubin (0.2-1.3) mg/dL Total Protein (6.3-8.2) g/dL Albumin (3.5-5.0) g/dL 02/03/22 02/03/22 Range/Units 05:43 06:53 RBC (4.30-5.90) m/uL Hgb (13.0-17.5) gm/dL Hct (39.0-53.0) % Sodium 129 L (137-145) mmol/L Chloride 94 L (98-107) mmol/L BUN 21 H (9-20) mg/dL Glucose 119 H (74-99) mg/dL POC Glucose (mg/dL) 124 H (70-110) mg/dL Calcium 7.8 L (8.4-10.2) mg/dL Total Bilirubin 1.5 H (0.2-1.3) mg/dL Total Protein 5.1 L (6.3-8.2) g/dL Albumin 2.9 L (3.5-5.0) g/dL - Imaging and Cardiology Chest x-ray: report reviewed, image reviewed Assessment and Plan Assessment: 1. Triple-vessel coronary artery disease, non-ST elevated myocardial infarction this admission, status post three-vessel CABG 2. History of hypertension 3. Hyperlipidemia, cholesterol 188, LDL 108 4. Previous tobacco dependence, preoperative FEV1 81% predicted 5. Obstructive sleep apnea without CPAP use 6. Anxiety 7. Family history of early onset coronary artery disease with his dad having a myocardial infarction at age 45 8. Postoperative acute blood loss anemia, expected given hemodilution. Plan: 1. Continue to maximize medical therapy with full strength aspirin, statin, Plavix and beta barbara. Will increase beta barbara therapy as tolerated 2. Wean O2 as tolerated. Encourage incentive spirometry 10 times every hour while awake. Bronchodilators per pulmonology. 3. Increase activity, ambulate as tolerated. PT/OT/cardiac rehab following. 4. Will monitor daily labs and chest x-ray. Electrolyte replacement per protocol. Ordered Lasix IV this morning 5. Pain control with current medication regimen. 6. Insulin management per internal medicine. Patient is not diabetic, preoperative hemaglobin A1c 6.1%. 7. Will discontinue mediastinal and left pleural chest tubes 8. Strict accurate intake and output, daily weights 9. Will place transfer orders for 3 S. cardiac stepdown unit, may transfer when bed available 10. Discharge planning in progress, anticipate discharge to home with home care in the next 24-48 hours 11. More recommendations to follow
[2022-02-03] MEDS: IPRATROPIUM-ALBUTEROL 3 ML NEB INHALATION SCH ×4 (07:52→19:12)
--- NOTE | 2022-02-03 08:24 | PN ---
PROGRESS NOTE SUBJECTIVE: Mr. Singh is in sinus rhythm, resting comfortably. He did some walking and also his wires are out. He is maintaining sinus rhythm, hemodynamically stable. OBJECTIVE: NECK: JVD 1 cm. HEART: S1, S2 heard normally. Pericardial rub is audible. LUNGS: Reveal bilateral decent air entry. ABDOMEN: Exam unchanged. LOWER EXTREMITIES: Exam unchanged. PLAN: Plan is to continue current medications, and incentive spirometry and pulmonary toilet. MMODL / IJN: [id number] /
--- NOTE | 2022-02-03 08:24 | PN ---
PROGRESS NOTE SUBJECTIVE: Mr. Singh is in sinus rhythm, resting comfortably. He did some walking and also his wires are out. He is maintaining sinus rhythm, hemodynamically stable. OBJECTIVE: NECK: JVD 1 cm. HEART: S1, S2 heard normally. Pericardial rub is audible. LUNGS: Reveal bilateral decent air entry. ABDOMEN: Exam unchanged. LOWER EXTREMITIES: Exam unchanged. PLAN: Plan is to continue current medications, and incentive spirometry and pulmonary toilet. MMODL / IJN: [id number] /
[2022-02-03] MEDS: METOPROLOL TARTRATE 50 MG TAB PO SCH ×2 (09:49→20:31)
[2022-02-03] MEDS: CLOPIDOGREL 75 MG TAB PO SCH (09:49)
[2022-02-03] MEDS: guaiFENesin 600 MG TABLET.ER PO SCH ×2 (09:49→20:31)
[2022-02-03] MEDS: ASPIRIN 325 MG TAB PO SCH (09:49)
[2022-02-03] MEDS: ATORVASTATIN 40 MG TAB PO SCH (09:49)
[2022-02-03] MEDS: MUPIROCIN 2% OINT 22 GM TUBE NASAL SCH ×3 (09:49→20:41)
--- NOTE | 2022-02-03 10:38 | P.PN ---
Subjective Progress Note Date: 02/03/22 Principal diagnosis: Coronary artery disease. Pulmonary consult dated 01/31/2022. 71-year-old male who presented to the emergency department on January 29, complaining of chest pain for 3 days. The patient was going on for 3 days prior to admission. It was clearly exertional in nature. He apparently initially noted when he was loading a drywall into his truck. When he sat down, the symptoms would resolve. He did have some mild shortness of breath along with it. No radiation of the pain. He had a heart catheterization in 2014, and apparently had a small blockage that did not need a stent at that time. The patient was admitted with an acute non-ST segment elevation myocardial infarction. Apparently, the patient had a cardiac catheterization, although I do not see the operative report, and the patient is scheduled to have bypass grafting later today. I introduced myself to the patient, and told him that my job was to initially, get the patient extubated from mechanical ventilation, and then secondly, the follow the patient, throughout his hospitalization, to make sure that his lungs are healthy. The patient does not have a history of any lung issues. He did smoke in the distant past. 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 Laboratory data from yesterday shows a white count of 4.9, hemoglobin 13.6, hematocrit 39.7, and a platelet count of 182,000. Sodium 136, potassium 4.2, chlorides 102, CO2 26, BUN 20, creatinine 0.89. Chest CT showed atheros clerotic vascular disease, without any suspicious pulmonary masses or lesion. Progress note dated 02/01/2022. 71-year-old male seen yesterday in consultation. The patient is postop day #1, status post three-vessel bypass grafting, including LIND to LAD bypass, saphenous vein graft to obtuse marginal 1, and saphenous vein graft to posterior descending artery. Currently, the patient's doing well. He was extubated in less than 6 hours after the operating room. He is currently on 5 L nasal can nula. He is getting lactated Ringer's at 20 mL an hour. He is also on an insulin drip at 3 units an hour. The surgery was done by Dr. Huynh. White count 10.5, hemoglobin 10.4, hematocrit 30.5, and platelet count 146,000. Sodium 134, potassium 4.5, chlorides 101, CO2 24, BUN 16, creatinine 0.86. Albumin is 3.4. Chest x-ray shows interval extubation, low lung volumes, cardiomegaly, and some basilar atelectasis. Progress note dated 02/02/2022. 71-year-old male, who is postop day #2, status post three-vessel bypass grafting. The patient's doing well. He is resting comfortably. He is on 2 L of oxygen. He's not receiving any IV fluids. He had a pretty uneventful night. The surgery was done by Dr. Huynh. White count 6.9, hemoglobin 8.6, hematocrit 24, platelet count 134,000. Sodium 129, potassium 4.5, chlorides 97, CO2 28, BUN 21, creatinine 0.92. Albumin is 2.8. Calcium 7.6. Chest x-ray shows some subcutaneous emphysema over the left pectoralis muscle, and in the lower neck. No clearcut pneumothorax is seen. Post surgical changes are also noted. There is some bibasilar atelectasis. Progress note dated 02/03/2022. 71-year-old male postop day #3, status post three-vessel bypass grafting. Currently, the patient's on 2 L of oxygen. Not receiving IV fluids. The p atient will be transferred to the 3 S. floor. Chest tubes are out. The patient had an uneventful night according to the nurses. Today's labs include a white count 7.6, hemoglobin 8.5, hematocrit 25.2, and a platelet count of 162,000. Sodium 129, potassium 4.6, chlorides 94, CO2 28, BUN 21, and creatinine 0.92. Albumin is 2.9. Chest x-ray shows no sizable pneumothorax, and improved subcutaneous emphysema. Postsurgical changes are again noted. Objective - Vital Signs Vital signs: Vital Signs Temp 98.5 F 02/03/22 08:00 Pulse 96 02/03/22 10:00 Resp 18 02/03/22 10:00 BP 106/64 02/03/22 10:00 Pulse Ox 94 L 02/03/22 10:00 FiO2 50 01/31/22 23:45 Intake & Output 02/02/22 02/03/22 02/03/22 18:59 06:59 18:59 Intake Total 52 540 Output Total 790 1230 Balance -738 -690 Weight 117.5 kg Intake: IV 52 0 Lactated Ringers 1,000 ml 40 0 @ 50 mls/hr IV .Q20H [facility] Rx#:[id number] Pressure bag 12 Oral 540 Output: Chest Tube Drainage 240 130 Left Pleural Chest Tube 90 50 Mediastinal chest tube [address] chest 50 tube Urine 550 1100 Other: Voiding Method Urinal Urinal # Voids 0 ABP, PAP, CO, CI - Last Documented Arterial Blood Pressure 125/59 Pulmonary Artery Pressure 20/11 Cardiac Output 5.7 Cardiac Index 2.4 - Exam No acute distress, oriented 3. The patient's currently on 2 L nasal cannula. No conversational dyspnea or use of accessory muscles. HEENT examination is grossly unremarkable. Neck supple. Full range of motion. No adenopathy thyromegaly or neck vein distention. Cardiovascular examination reveals regular rhythm rate. S1-S2 normal. No S3 or S4. No discernible murmur noted. Heart rate 92 bpm. Lungs reveal clear breath sounds. Breath sounds are equal bilaterally. No adventitious lung sounds including wheezes rhonchi or crackles. Abdomen soft bowel sounds are heard. No masses or tenderness. Extremities are intact. No cyanosis clubbing or edema. Skin is without rash or lesion. Neurologic examination is brief but nonfocal. - Labs CBC & Chem 7: 02/03/22 05:43 02/03/22 05:43 Labs: Abnormal Lab Results - Last 24 Hours (Table) 02/02/22 02/02/22 02/03/22 Range/Units 16:32 20:23 05:43 RBC 2.86 L (4.30-5.90) m/uL Hgb 8.5 L (13.0-17.5) gm/dL Hct 25.2 L (39.0-53.0) % Sodium (137-145) mmol/L Chloride (98-107) mmol/L BUN (9-20) mg/dL Glucose (74-99) mg/dL POC Glucose (mg/dL) 138 H 147 H (70-110) mg/dL Calcium (8.4-10.2) mg/dL Total Bilirubin (0.2-1.3) mg/dL Total Protein (6.3-8.2) g/dL Albumin (3.5-5.0) g/dL 02/03/22 02/03/22 Range/Units 05:43 06:53 RBC (4.30-5.90) m/uL Hgb (13.0-17.5) gm/dL Hct (39.0-53.0) % Sodium 129 L (137-145) mmol/L Chloride 94 L (98-107) mmol/L BUN 21 H (9-20) mg/dL Glucose 119 H (74-99) mg/dL POC Glucose (mg/dL) 124 H (70-110) mg/dL Calcium 7.8 L (8.4-10.2) mg/dL Total Bilirubin 1.5 H (0.2-1.3) mg/dL Total Protein 5.1 L (6.3-8.2) g/dL Albumin 2.9 L (3.5-5.0) g/dL Assessment and Plan Assessment: Postop day #3, status post 3 vessel bypass grafting. Routine postoperative ventilator management, with extubation and less than 6 hours. Acute non-ST segment elevation myocardial infarction. Significant coronary artery disease, with anticipated bypass grafting, 01/31/2022. History of hypertension. History of hyperlipidemia. No history of any significant pulmonary disease at this time. Plan: Plan dated 01/31/2022. The patient's on function were excellent. He should do well with surgery. He has no significant pulmonary disease to speak of. Did explain my role in the process, he understands that first, the goal is to get him extubated from mechanical ventilation. Second, we will see the patient on a daily and ongoing basis, to make sure that his long stay healthy, and attempt to avoid pneumonia, pleural effusion, atelectasis, lobar collapse. Plan dated 02/01/2022. The patient did well postoperatively. He was extubated in about 4 hours after leaving the operating room. He's currently on 5 L. Chest x-ray, labs, medications are reviewed. He remains on lactated Ringer's at 20 mL an hour, and an insulin drip at 3 units an hour, per protocol. The surgery was performed by Dr. Huynh. We will continue to follow the patient and make recommendations along the way. We encourage deep breathing, coughing, and clearing of secretions. We also recommend hourly use of the incentive spirometer. Plan dated 02/02/2022. The patient remains on oxygen at 2 L. No IV fluids. Today is postop day #2. The patient had a three-vessel bypass grafting. The surgery was done by Dr. Huynh. The patient was extubated in a timely fashion. We will continue to follow the patient make recommendations along the way. The patient is encouraged to take deep breaths, cough, and clear secretions, and to use the incentive spirometer, every hour while awake. Plan dated 02/03/2022. The patient is doing well. He remains on oxygen at 2 L. Saturations are excellent. Today's postop day #3. He's not receiving any IV fluids. Labs, x- rays, and medications are reviewed. The patient will be transferred out of the intensive care unit, later today. He'll go to the stepdown unit. No additional recommendations are made. We will continue to follow the patient and make recommendations along the way. Time with Patient: Less than 30
[2022-02-03 11:04] LABS: Glucose,Whole Blood 107 mg/dL (70-110)
[2022-02-03] MEDS ORDERED: DEXTROSE 5% IN WATER 100 ML with AMIODARONE 150 MG IV ONE (12:00)
[2022-02-03] MEDS: HEPARIN SOD,PORK IN 0.45% NACL 25,000 UNIT in 0.45% NACL 1 250ML.BAG IV SCH (13:50)
[2022-02-03] MEDS ORDERED: TEMAZEPAM 7.5 MG CAP PO PRN (14:41)
--- NOTE | 2022-02-03 14:41 | P.PN ---
Subjective Progress Note Date: 02/03/22 This is a 71-year-old male currently in the ICU underwent CABG 3 secondary to three-vessel coronary artery disease. Patient currently maintained on 2 L via nasal cannula and denies worsening shortness of breath. Patient reports generalized edema noted of the lower extremities and upper extremities although reports improvement. Patient with incentive spirometer at the bedside and encourage the patient to continue using at least 10 times every hour while awake. Patient continues with chest tubes at this time and is currently sitting up in the chair. Physical therapy following the patient. Hemoglobin is 8.6 today and sodium slightly low at 129 with a potassium of 4.5 and mag is 2.1. Patient denies worsening shortness of breath, reports some chest wall pain, and denies any nausea or vomiting. Patient is tolerating diet. Patient is afebrile. 02/03/2022 Patient is seen and evaluated in follow-up this morning currently in the ICU awaiting transfer to the stepdown unit. Chest tubes have been removed and patient is continued on 2 L via nasal cannula although denies further worsening shortness of breath. Patient was given a dose of Lasix for generalized swelling which is slowly improving. Recommend close monitoring on telemetry with cardiothoracic surgery following closely. Blood sugars have been well controlled and recommend continue with Accu-Cheks before meals and at bedtime per protocol. Sodium continues to be 129 with a potassium of 4.6 and current creatinine is 0.92. Hemoglobin is stable at 8.5. Encouraged increased activity as tolerated and continue to use incentive spirometer at least 10 times every hour while awake. Patient is reporting some difficulty in sleeping and will add as needed Restoril. Recommend repeat labs in a.m. Patient is currently afebri le denies chest pain and reports to feeling well. Tolerating oral intake with no reports of nausea or vomiting noted. Review of systems: Constitutional: No reports of fatigue, fever, or chills Cardiovascular: No reports of chest pain or palpitations Respiratory: No reports of shortness of breath or cough GI: No reports of nausea, no reports of of vomiting : No reports of dysuria or retention Neurovascular: reports of generalized weakness, some generalized edema of the upper and lower extremities All medications have been reviewed PHYSICAL EXAMINATION: GENERAL: The patient is alert and oriented x4, Well developed, well nourished. Obese HEENT: Pupils are round and equally reacting to light. EOMI. no scleral icterus. No conjunctival pallor. Normocephalic, atraumatic. No pharyngeal erythema. No thyromegaly. CARDIOVASCULAR: S1 and S2 muffled PULMONARY: diminished breath sounds bilaterally with no wheezing or rhonchi noted. ABDOMEN: soft. Nontender on exam. obese. non-distended, normoactive bowel sounds. No palpable organomegaly. MUSCULOSKELETAL: No joint swelling or deformity. EXTREMITIES: No cyanosis, clubbing, or pedal edema. NEUROLOGICAL: Gross neurological examination did not reveal any focal deficits. Diffuse weakness SKIN: No rashes. Assessment: Coronary artery disease status post coronary artery bypass graft Hypertension Hyperlipidemia Obstructive sleep apnea GI prophylaxis DVT prophylaxis Full code Plan: Recommend to continue with current medications and management per cardiothoracic services. Patient is currently sitting up in the chair with incentive spirometer at the table and encouraged the patient to continue using at least 10 times every hour while awake. Patient is maintained on aspirin and Plavix along with subcutaneous Lovenox with cardiology following as well. Patient is maintained on Accu-Cheks before meals and at bedtime and recommend continue sliding scale as needed. Encouraged oral intake and increased activity as sonam erated. Patient was generalized edema of the upper lower extremities with some improvement from yesterday and was given a dose of Lasix this morning. Chest x- ray and labs ordered for the a.m. Patient is being transferred out of the ICU to the stepdown unit once a bed becomes available. Chest tubes have been removed and recommend to wean FiO2 as tolerated. Patient having some difficulty in sleeping will add low-dose as needed Restoril. We will continue to follow along closely with you. Thank you for this consultation. The impression and plan of care has been dictated by Cady Plummer, nurse practitioner as directed. Dr. Trent MD I have performed a history and examination and MDM of this patient, discussed the same with the dictator, and agree with the dictator's assessment and plan as written ,documented as a scribe. Based on total visit time, I have performed more than 50% of the visit. Any additional findings or plans will be noted. Objective - Vital Signs Vital signs: Vital Signs Temp 97.6 F 02/03/22 04:00 Pulse 94 02/03/22 08:02 Resp 16 02/03/22 07:00 BP 126/77 02/03/22 07:00 Pulse Ox 91 L 02/03/22 07:54 FiO2 50 01/31/22 23:45 Intake & Output 02/02/22 02/03/22 02/03/22 18:59 06:59 18:59 Intake Total 52 540 Output Total 790 1230 Balance -738 -690 Weight 117.5 kg Intake: IV 52 0 Lactated Ringers 1,000 ml 40 0 @ 50 mls/hr IV .Q20H [facility] Rx#:[id number] Pressure bag 12 Oral 540 Output: Chest Tube Drainage 240 130 Left Pleural Chest Tube 90 50 Mediastinal chest tube [address] chest 50 tube Urine 550 1100 Other: Voiding Method Urinal Urinal # Voids 0 ABP, PAP, CO, CI - Last Documented Arterial Blood Pressure 125/59 Pulmonary Artery Pressure 20/11 Cardiac Output 5.7 Cardiac Index 2.4 - Labs CBC & Chem 7: 02/03/22 05:43 02/03/22 05:43 Labs: Abnormal Lab Results - Last 24 Hours (Table) 02/02/22 02/02/22 02/03/22 Range/Units 16:32 20:23 05:43 RBC 2.86 L (4.30-5.90) m/uL Hgb 8.5 L (13.0-17.5) gm/dL Hct 25.2 L (39.0-53.0) % Sodium (137-145) mmol/L Chloride (98-107) mmol/L BUN (9-20) mg/dL Glucose (74-99) mg/dL POC Glucose (mg/dL) 138 H 147 H (70-110) mg/dL Calcium (8.4-10.2) mg/dL Total Bilirubin (0.2-1.3) mg/dL Total Protein (6.3-8.2) g/dL Albumin (3.5-5.0) g/dL 02/03/22 02/03/22 Range/Units 05:43 06:53 RBC (4.30-5.90) m/uL Hgb (13.0-17.5) gm/dL Hct (39.0-53.0) % Sodium 129 L (137-145) mmol/L Chloride 94 L (98-107) mmol/L BUN 21 H (9-20) mg/dL Glucose 119 H (74-99) mg/dL POC Glucose (mg/dL) 124 H (70-110) mg/dL Calcium 7.8 L (8.4-10.2) mg/dL Total Bilirubin 1.5 H (0.2-1.3) mg/dL Total Protein 5.1 L (6.3-8.2) g/dL Albumin 2.9 L (3.5-5.0) g/dL
[2022-02-03 16:37] LABS: Glucose,Whole Blood 125 mg/dL (70-110)
[2022-02-03 20:22] LABS: Glucose,Whole Blood 126 mg/dL (70-110)
[2022-02-03] MEDS: MELATONIN 3 MG TABLET PO SCH (20:31)
[2022-02-03] MEDS: SENNOSIDES-DOCUSATE SODIUM 1 EACH TAB PO SCH (20:31)
[2022-02-04 02:04] LABS: Glucose,Whole Blood 136 mg/dL (70-110)
[2022-02-04] MEDS: KETOROLAC 15 MG/ML 1 ML VIAL IVP SCH (04:57)
[2022-02-04] MEDS: HEPARIN SODIUM,PORCINE/PF 5,000 UNIT/0.5 ML SYRINGE SQ SCH ×3 (04:57→20:26)
--- NOTE | 2022-02-04 05:44 | PN ---
PROGRESS NOTE SUBJECTIVE: Mr. Singh is in sinus rhythm, doing very well. Post surgery, his chest tubes are out. OBJECTIVE: VITAL SIGNS: Stable. NECK: No JVD. HEART: S1, S2 heard normally. Short systolic murmur. LUNGS: Reveal improved air entry. ABDOMEN: Exam unchanged. LOWER EXTREMITIES: Exam unchanged. PLAN: Plan is to continue current medications, incentive spirometry, and can be moved to telemetry. MMODL / IJN: [id number] /
--- NOTE | 2022-02-04 05:44 | PN ---
PROGRESS NOTE SUBJECTIVE: Mr. Singh is in sinus rhythm, doing very well. Post surgery, his chest tubes are out. OBJECTIVE: VITAL SIGNS: Stable. NECK: No JVD. HEART: S1, S2 heard normally. Short systolic murmur. LUNGS: Reveal improved air entry. ABDOMEN: Exam unchanged. LOWER EXTREMITIES: Exam unchanged. PLAN: Plan is to continue current medications, incentive spirometry, and can be moved to telemetry. MMODL / IJN: [id number] /
[2022-02-04 06:13] LABS: Glucose,Whole Blood 120 mg/dL (70-110)
[2022-02-04] MEDS: INSULIN ASPART (NovoLOG) 100 UNIT/ML VIAL SQ SCH ×4 (06:14→21:56)
[2022-02-04] MEDS: PANTOPRAZOLE 40 MG TABLET PO SCH (06:15)
--- NOTE | 2022-02-04 07:40 | XR ---
EXAMINATION TYPE: XR chest 2V DATE OF EXAM: 02/04/2022 COMPARISON: 02/03/2022 INDICATION: Postcardiac surgery TECHNIQUE: Frontal and lateral views of the chest are obtained. FINDINGS: The heart size is mildly prominent. The pulmonary vasculature is normal. Focal consolidation is not identified. There are some nonspecific linear markings in the lateral righ t lung relative apex left lower lung field. Correlate for atelectasis.. IMPRESSION: 1. Suggestion of mild streak atelectasis present bilaterally. 2. Interval removal of chest tube and mediastinal tube. 3. Mild cardiomegaly
[2022-02-04 07:51] LABS: HCT 24.2 % (39.0-53.0); HGB 8.2 gm/dL (13.0-17.5); MCV 88.4 fL (80.0-100.0); Mean Platelet Volume 9.4; Platelet Count 189 k/uL (150-450); RBC 2.74 m/uL (4.30-5.90); RDW 13.6 % (11.5-15.5); WBC 6.5 k/uL (3.8-10.6)
[2022-02-04 08:08] LABS: African American GFR (CKD) >90 (>60 ml/min/1.73 sqM); Anion Gap 8 mmol/L; Blood Urea Nitrogen 29 mg/dL (9-20); Calcium 7.5 mg/dL (8.4-10.2); Carbon Dioxide 28 mmol/L (22-30); Chloride 91 mmol/L (98-107); Glucose 113 mg/dL (74-99); Non-African American GFR(CKD) >90 (>60 ml/min/1.73 sqM); Sodium 127 mmol/L (137-145)
--- NOTE | 2022-02-04 08:16 | P.PN ---
Subjective Progress Note Date: 02/04/22 Principal diagnosis: Triple-vessel coronary artery disease, non-ST elevated myocardial infarction this admission. Previuos medical history of hypertension, hyperlipidemia, previous tobacco dependence, obstructive sleep apnea without CPAP use, anxiety, family history of early onset coronary artery disease with his dad having a myocardial infarction at age 45. POD #4 Off pump coronary artery bypass grafting x 3. Left internal mammary artery to left anterior descending coronary artery, a reverse greater saphenous vein graft to 1st obtuse marginal coronary artery, a reverse greater saphenous vein graft to posterior descending coronary artery, Left atrial appendage ligation with #35 AtriClip, endoscopic bilateral greater saphenous vein harvest, graft flow measurements using medi-stim system, and intraoperative transesophageal echocardiogram performed by anesthesia. Postoperative acute blood loss anemia, expected given hemodilution Brief episodes A. fib yesterday which is a known common occurrence after open heart surgery, converted to sinus rhythm with IV amiodarone The patient was seen and examined sitting up in a recliner on the cardiac stepdown unit in no acute distress. States pain is controlled on current medication regimen, has taken no narcotics, denies shortness of breath. Currently in sinus rhythm, hemodynamically stable. He did have a very brief episode of atrial fibrillation yesterday which converted to normal sinus rhythm with IV amiodarone. Remains on 2 L nasal cannula and able to achieve 1750 mL on his incentive spirometry. He has been ambulatory without difficulty. Chest tubes removed yesterday. No other new concerns. Objective - Vital Signs Vital signs: Vital Signs Temp 98.1 F 02/04/22 04:00 Pulse 70 02/04/22 04:00 Resp 18 02/04/22 04:00 BP 131/78 02/04/22 04:00 Pulse Ox 99 02/04/22 04:00 FiO2 50 01/31/22 23:45 Intake & Output 02/03/22 02/04/22 02/04/22 18:59 06:59 18:59 Intake Total 118 480 Output Total 220 450 Balance -102 30 Weight 115.9 kg Intake: Oral 118 480 Output: Urine 220 450 Other: Voiding Method Toilet Toilet # Voids 1 ABP, PAP, CO, CI - Last Documented Arterial Blood Pressure 125/59 Pulmonary Artery Pressure 20/11 Cardiac Output 5.7 Cardiac Index 2.4 - Exam CONSTITUTIONAL: Appears comfortable, cooperative, no acute distress RESPIRATORY: Lungs sounds diminished bilaterally. Respirations even, nonlabored. Currently on 2 L nasal cannula with oxygen saturation 99%. Able to achieve 1750 mL on incentive spirometry. Strong cough. CARDIOVASCULAR: S1, S2 present. Regular rate and rhythm, sinus rhythm on telemetry. Sternum stable. Palpable peripheral pulses bilaterally. No edema present. No calf pain or tenderness noted. Heart hugger in place with patient demonstrating appropriate use. Antiembolism stockings, SCDs present. GASTROINTESTINAL: Abdomen soft, nontender, nondistended. Active bowel sounds present 4 quadrants. Tolerating diet. Positive flatus GENITOURINARY: Continues to void INTEGUMENTARY: Skin is warm and dry with evidence of good perfusion. Anterior chest incision well approximated. Bilateral lower extremity EVH sites well approximated without redness or drainage. NEUROLOGIC: Cranial nerves II through XII intact MUSKULOSKELETAL: Able to move all extremities, strength equal bilaterally, gait normal PSYCHIATRIC: Alert and oriented to person place and time, appropriate affect, intact judgment and insight - Allied health notes Allied health notes reviewed: nursing - Labs CBC & Chem 7: 02/04/22 07:18 02/04/22 07:18 Labs: Abnormal Lab Results - Last 24 Hours (Table) 02/03/22 02/03/22 02/04/22 Range/Units 16:34 20:20 02:02 RBC (4.30-5.90) m/uL Hgb (13.0-17.5) gm/dL Hct (39.0-53.0) % Sodium (137-145) mmol/L Chloride (98-107) mmol/L BUN (9-20) mg/dL Glucose (74-99) mg/dL POC Glucose (mg/dL) 125 H 126 H 136 H (70-110) mg/dL Calcium (8.4-10.2) mg/dL 02/04/22 02/04/22 02/04/22 Range/Units 06:11 07:18 07:18 RBC 2.74 L (4.30-5.90) m/uL Hgb 8.2 L (13.0-17.5) gm/dL Hct 24.2 L (39.0-53.0) % Sodium 127 L (137-145) mmol/L Chloride 91 L (98-107) mmol/L BUN 29 H (9-20) mg/dL Glucose 113 H (74-99) mg/dL POC Glucose (mg/dL) 120 H (70-110) mg/dL Calcium 7.5 L (8.4-10.2) mg/dL - Imaging and Cardiology Chest x-ray: report reviewed, image reviewed Assessment and Plan Assessment: 1. Triple-vessel coronary artery disease, non-ST elevated myocardial infarction this admission, status post three-vessel CABG 2. History of hypertension 3. Hyperlipidemia, cholesterol 188, LDL 108 4. Previous tobacco dependence, preoperative FEV1 81% predicted 5. Obstructive sleep apnea without CPAP use 6. Anxiety 7. Family history of early onset coronary artery disease with his dad having a myocardial infarction at age 45 8. Postoperative acute blood loss anemia, expected given hemodilution 9. Brief episodes of atrial fibrillation, currently sinus, status post left atrial appendage ligation Plan: 1. Continue to maximize medical therapy with full strength aspirin, statin, Plavix and beta barbara. Will increase beta barbara therapy as tolerated 2. Continue amiodarone, will transition to oral. No anticoagulation necessary unless remains in A. fib greater than 24 hours 3. Wean O2 as tolerated. Encourage incentive spirometry 10 times every hour while awake. Bronchodilators per pulmonology. 4. Increase activity, ambulate as tolerated. PT/OT/cardiac rehab following. 5. Will monitor daily labs and chest x-ray. Electrolyte replacement per protocol. Will give 20 mg IVP lasix x 1 6. Pain control with current medication regimen. 7. Insulin management per internal medicine. Patient is not diabetic, preoperative hemaglobin A1c 6.1%. 8. Strict accurate intake and output, daily weights 9. Patient to shower today, then daily every day 10. Discharge planning in progress, anticipate discharge to home with home care in the next 24-48 hours 11. More recommendations to follow
[2022-02-04] MEDS: ASPIRIN 325 MG TAB PO SCH (08:27)
[2022-02-04] MEDS: CLOPIDOGREL 75 MG TAB PO SCH (08:27)
[2022-02-04] MEDS: METOPROLOL TARTRATE 50 MG TAB PO SCH ×2 (08:27→20:26)
[2022-02-04] MEDS: guaiFENesin 600 MG TABLET.ER PO SCH ×2 (08:27→20:26)
[2022-02-04] MEDS: AMIODARONE 200 MG TAB PO SCH ×2 (08:27→20:26)
[2022-02-04] MEDS: ATORVASTATIN 40 MG TAB PO SCH (08:27)
[2022-02-04] MEDS ORDERED: FUROSEMIDE 10 MG/ML 2 ML VIAL IV STA (09:17)
[2022-02-04] MEDS: IPRATROPIUM-ALBUTEROL 3 ML NEB INHALATION SCH ×4 (09:29→20:11)
[2022-02-04] MEDS: bisacodyL 10 MG SUPP RECTAL PRN (09:35)
[2022-02-04 11:56] LABS: Glucose,Whole Blood 126 mg/dL (70-110)
--- NOTE | 2022-02-04 13:04 | P.PN ---
Subjective Progress Note Date: 02/04/22 Principal diagnosis: Coronary artery disease. Pulmonary consult dated 01/31/2022. 71-year-old male who presented to the emergency department on January 29, complaining of chest pain for 3 days. The patient was going on for 3 days prior to admission. It was clearly exertional in nature. He apparently initially noted when he was loading a drywall into his truck. When he sat down, the symptoms would resolve. He did have some mild shortness of breath along with it. No radiation of the pain. He had a heart catheterization in 2014, and apparently had a small blockage that did not need a stent at that time. The patient was admitted with an acute non-ST segment elevation myocardial infarction. Apparently, the patient had a cardiac catheterization, although I do not see the operative report, and the patient is scheduled to have bypass grafting later today. I introduced myself to the patient, and told him that my job was to initially, get the patient extubated from mechanical ventilation, and then secondly, the follow the patient, throughout his hospitalization, to make sure that his lungs are healthy. The patient does not have a history of any lung issues. He did smoke in the distant past. 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 Laboratory data from yesterday shows a white count of 4.9, hemoglobin 13.6, hematocrit 39.7, and a platelet count of 182,000. Sodium 136, potassium 4.2, chlorides 102, CO2 26, BUN 20, creatinine 0.89. Chest CT showed atheros clerotic vascular disease, without any suspicious pulmonary masses or lesion. Progress note dated 02/01/2022. 71-year-old male seen yesterday in consultation. The patient is postop day #1, status post three-vessel bypass grafting, including LIND to LAD bypass, saphenous vein graft to obtuse marginal 1, and saphenous vein graft to posterior descending artery. Currently, the patient's doing well. He was extubated in less than 6 hours after the operating room. He is currently on 5 L nasal can nula. He is getting lactated Ringer's at 20 mL an hour. He is also on an insulin drip at 3 units an hour. The surgery was done by Dr. Huynh. White count 10.5, hemoglobin 10.4, hematocrit 30.5, and platelet count 146,000. Sodium 134, potassium 4.5, chlorides 101, CO2 24, BUN 16, creatinine 0.86. Albumin is 3.4. Chest x-ray shows interval extubation, low lung volumes, cardiomegaly, and some basilar atelectasis. Progress note dated 02/02/2022. 71-year-old male, who is postop day #2, status post three-vessel bypass grafting. The patient's doing well. He is resting comfortably. He is on 2 L of oxygen. He's not receiving any IV fluids. He had a pretty uneventful night. The surgery was done by Dr. Huynh. White count 6.9, hemoglobin 8.6, hematocrit 24, platelet count 134,000. Sodium 129, potassium 4.5, chlorides 97, CO2 28, BUN 21, creatinine 0.92. Albumin is 2.8. Calcium 7.6. Chest x-ray shows some subcutaneous emphysema over the left pectoralis muscle, and in the lower neck. No clearcut pneumothorax is seen. Post surgical changes are also noted. There is some bibasilar atelectasis. Progress note dated 02/03/2022. 71-year-old male postop day #3, status post three-vessel bypass grafting. Currently, the patient's on 2 L of oxygen. Not receiving IV fluids. The p atient will be transferred to the 3 S. floor. Chest tubes are out. The patient had an uneventful night according to the nurses. Today's labs include a white count 7.6, hemoglobin 8.5, hematocrit 25.2, and a platelet count of 162,000. Sodium 129, potassium 4.6, chlorides 94, CO2 28, BUN 21, and creatinine 0.92. Albumin is 2.9. Chest x-ray shows no sizable pneumothorax, and improved subcutaneous emphysema. Postsurgical changes are again noted. Progress note dated 02/04/2022. 71-year-old male, postop day #4, status post three-vessel bypass grafting. Currently, the patient's on room air. The patient is hopeful to possibly be discharged tomorrow. He denies any particular complaints today. He denies any chest pain or chest discomfort. No shortness of breath, cough, wheezing, or phl egm production. All in all, the patient's doing reasonably well. White count 6.5, hemoglobin 8.2, hematocrit 24.2, and platelet count 289,000. Sodium 127, potassium 4, chlorides 91, CO2 28, BUN 29, creatinine 0.8. Calcium is 7.5. Chest x-ray shows bibasilar atelectasis. Objective - Vital Signs Vital signs: Vital Signs Temp 98.2 F 02/04/22 11:19 Pulse 71 02/04/22 11:19 Resp 16 02/04/22 11:19 BP 82/55 02/04/22 11:19 Pulse Ox 97 02/04/22 11:19 FiO2 50 01/31/22 23:45 Intake & Output 02/03/22 02/04/22 02/04/22 18:59 06:59 18:59 Intake Total 118 480 480 Output Total 220 450 Balance -102 30 480 Weight 115.9 kg Intake: Oral 118 480 480 Output: Urine 220 450 Other: Voiding Method Toilet Toilet Toilet # Voids 1 ABP, PAP, CO, CI - Last Documented Arterial Blood Pressure 125/59 Pulmonary Artery Pressure 20/11 Cardiac Output 5.7 Cardiac Index 2.4 - Exam No acute distress, oriented 3. The patient's currently on room air. HEENT examination is grossly unremarkable. Neck supple. Full range of motion. No adenopathy thyromegaly or neck vein distention. Cardiovascular examination reveals regular rhythm rate. S1-S2 normal. No S3 or S4. No discernible murmur noted. Heart rate 71 bpm. Lungs reveal clear breath sounds. Breath sounds are equal bilaterally. No adventitious lung sounds including wheezes rhonchi or crackles. Room air saturations are 97%. Abdomen soft bowel sounds are heard. No masses or tenderness. Extremities are intact. No cyanosis clubbing or edema. Skin is without rash or lesion. Neurologic examination is brief but nonfocal. - Labs CBC & Chem 7: 02/04/22 07:18 02/04/22 07:18 Labs: Abnormal Lab Results - Last 24 Hours (Table) 02/03/22 02/03/22 02/04/22 Range/Units 16:34 20:20 02:02 RBC (4.30-5.90) m/uL Hgb (13.0-17.5) gm/dL Hct (39.0-53.0) % Sodium (137-145) mmol/L Chloride (98-107) mmol/L BUN (9-20) mg/dL Glucose (74-99) mg/dL POC Glucose (mg/dL) 125 H 126 H 136 H (70-110) mg/dL Calcium (8.4-10.2) mg/dL 02/04/22 02/04/22 02/04/22 Range/Units 06:11 07:18 07:18 RBC 2.74 L (4.30-5.90) m/uL Hgb 8.2 L (13.0-17.5) gm/dL Hct 24.2 L (39.0-53.0) % Sodium 127 L (137-145) mmol/L Chloride 91 L (98-107) mmol/L BUN 29 H (9-20) mg/dL Glucose 113 H (74-99) mg/dL POC Glucose (mg/dL) 120 H (70-110) mg/dL Calcium 7.5 L (8.4-10.2) mg/dL 02/04/22 Range/Units 11:49 RBC (4.30-5.90) m/uL Hgb (13.0-17.5) gm/dL Hct (39.0-53.0) % Sodium (137-145) mmol/L Chloride (98-107) mmol/L BUN (9-20) mg/dL Glucose (74-99) mg/dL POC Glucose (mg/dL) 126 H (70-110) mg/dL Calcium (8.4-10.2) mg/dL Assessment and Plan Assessment: Postop day #4, status post 3 vessel bypass grafting. Routine postoperative ventilator management, with extubation and less than 6 hours. Acute non-ST segment elevation myocardial infarction. Significant coronary artery disease, with anticipated bypass grafting, 2. History of hypertension. History of hyperlipidemia. No history of any significant pulmonary disease at this time. Plan: Plan dated 01/31/2022. The patient's on function were excellent. He should do well with surgery. He has no significant pulmonary disease to speak of. Did explain my role in the process, he understands that first, the goal is to get him extubated from mecha nical ventilation. Second, we will see the patient on a daily and ongoing basis, to make sure that his long stay healthy, and attempt to avoid pneumonia, pleural effusion, atelectasis, lobar collapse. Plan dated 02/01/2022. The patient did well postoperatively. He was extubated in about 4 hours after leaving the operating room. He's currently on 5 L. Chest x-ray, labs, medications are reviewed. He remains on lactated Ringer's at 20 mL an hour, and an insulin drip at 3 units an hour, per protocol. The surgery was performed by Dr. Huynh. We will continue to follow the patient and make recommendations along the way. We encourage deep breathing, coughing, and clearing of secretions. We also recommend hourly use of the incentive spirometer. Plan dated 02/02/2022. The patient remains on oxygen at 2 L. No IV fluids. Today is postop day #2. The patient had a three-vessel bypass grafting. The surgery was done by Dr. Huynh. The patient was extubated in a timely fashion. We will continue to follow the patient make recommendations along the way. The patient is encouraged to take deep breaths, cough, and clear secretions, and to use the incentive spirometer, every hour while awake. Plan dated 02/03/2022. The patient is doing well. He remains on oxygen at 2 L. Saturations are excellent. Today's postop day #3. He's not receiving any IV fluids. Labs, x- rays, and medications are reviewed. The patient will be transferred out of the intensive care unit, later today. He'll go to the stepdown unit. No additional recommendations are made. We will continue to follow the patient and make recommendations along the way. Plan dated 02/04/2022. The patient's doing reasonably well. The patient will likely be discharged in the next 24 hours or so. The patient has been weaned down to room air. We will continue to follow make recommendations along the way. Labs, x-rays, and medications are all reviewed. The patient was transferred out of the intensive care unit, yesterday. We will see him in follow-up, in the office. Time with Patient: Less than 30
--- NOTE | 2022-02-04 14:04 | P.PN ---
Subjective Progress Note Date: 02/04/22 This is a 71-year-old male currently in the ICU underwent CABG 3 secondary to three-vessel coronary artery disease. Patient currently maintained on 2 L via nasal cannula and denies worsening shortness of breath. Patient reports generalized edema noted of the lower extremities and upper extremities although reports improvement. Patient with incentive spirometer at the bedside and encourage the patient to continue using at least 10 times every hour while awake. Patient continues with chest tubes at this time and is currently sitting up in the chair. Physical therapy following the patient. Hemoglobin is 8.6 today and sodium slightly low at 129 with a potassium of 4.5 and mag is 2.1. Patient denies worsening shortness of breath, reports some chest wall pain, and denies any nausea or vomiting. Patient is tolerating diet. Patient is afebrile. 02/03/2022 Patient is seen and evaluated in follow-up this morning currently in the ICU awaiting transfer to the stepdown unit. Chest tubes have been removed and patient is continued on 2 L via nasal cannula although denies further worsening shortness of breath. Patient was given a dose of Lasix for generalized swelling which is slowly improving. Recommend close monitoring on telemetry with cardiothoracic surgery following closely. Blood sugars have been well controlled and recommend continue with Accu-Cheks before meals and at bedtime per protocol. Sodium continues to be 129 with a potassium of 4.6 and current creatinine is 0.92. Hemoglobin is stable at 8.5. Encouraged increased activity as tolerated and continue to use incentive spirometer at least 10 times every hour while awake. Patient is reporting some difficulty in sleeping and will add as needed Restoril. Recommend repeat labs in a.m. Patient is currently afebri le denies chest pain and reports to feeling well. Tolerating oral intake with no reports of nausea or vomiting noted. 02/04/2022 Patient is seen and evaluated in follow-up this morning currently walking and working well with physical therapy. Patient has been up and walking multiple times and is extremely anxious to be going home. Patient reports he might be able to go home tomorrow. Cardiothoracic surgery working on discharge planning and patient will be going home with family support. Patient is currently maintained on Accu-Cheks before meals and at bedtime and blood sugars well cont rolled at this time. Patient currently walking the halls on room air and denies shortness of breath. Patient denies chest pain although reports some chest wall pain at times with exertion and movement and heart hugger noted. Patient is afebrile and denies nausea or vomiting. Patient is tolerating diet. Patient reports he has been using incentive spirometer and encourage at least 10 times every hour while awake. Patient also encouraged to elevate lower extremities while at rest. Review of systems: Constitutional: No reports of fatigue, fever, or chills Cardiovascular: No reports of chest pain or palpitations Respiratory: No reports of shortness of breath or cough GI: No reports of nausea, no reports of of vomiting : No reports of dysuria or retention Neurovascular: No reports of generalized weakness All medications have been reviewed PHYSICAL EXAMINATION: GENERAL: The patient is alert and oriented x4, Well developed, well nourished. Obese HEENT: Pupils are round and equally reacting to light. EOMI. no scleral icterus. No conjunctival pallor. Normocephalic, atraumatic. No pharyngeal erythema. No thyromegaly. CARDIOVASCULAR: S1 and S2 muffled PULMONARY: diminished breath sounds bilaterally with no wheezing or rhonchi noted. ABDOMEN: soft. Nontender on exam. obese. non-distended, normoactive bowel sounds. No palpable organomegaly. MUSCULOSKELETAL: No joint swelling or deformity. EXTREMITIES: No cyanosis, clubbing, or pedal edema. NEUROLOGICAL: Gross neurological examination did not reveal any focal deficits. SKIN: No rashes. Assessment: Coronary artery disease status post coronary artery bypass graft Hypertension Hyperlipidemia Obstructive sleep apnea GI prophylaxis DVT prophylaxis Full code Plan: Recommend to continue with current medications and management per cardiothoracic services. Patient is currently walking the halls with physical therapy and reports to feeling well. Patient continues with incentive spirometer at the table and encouraged the patient to continue using at least 10 times every hour while awake. Patient is maintained on aspirin and Plavix along with subcutaneous Lovenox with cardiology following as well. Patient is maintained on Accu-Cheks before meals and at bedtime and recommend continue sliding scale as needed. Encouraged oral intake and increased activity as tolerated. Patient was transferred out of the ICU yesterday with plans for possible discharge in the next [address] surgery. We will continue to follow along closely with you. Thank you for this consultation. The impression and plan of care has been dictated by Cady Plummer, nurse practitioner as directed. Dr. Trent MD I have performed a history and examination and MDM of this patient, discussed the same with the dictator, and agree with the dictator's assessment and plan as written ,documented as a scribe. Based on total visit time, I have performed more than 50% of the visit. Any additional findings or plans will be noted. Objective - Vital Signs Vital signs: Vital Signs Temp 98.2 F 02/04/22 11:19 Pulse 71 02/04/22 11:19 Resp 16 02/04/22 11:19 BP 82/55 02/04/22 11:19 Pulse Ox 97 02/04/22 11:19 FiO2 50 01/31/22 23:45 Intake & Output 02/03/22 02/04/22 02/04/22 18:59 06:59 18:59 Intake Total 118 480 480 Output Total 220 450 Balance -102 30 480 Weight 115.9 kg Intake: Oral 118 480 480 Output: Urine 220 450 Other: Voiding Method Toilet Toilet Toilet # Voids 1 ABP, PAP, CO, CI - Last Documented Arterial Blood Pressure 125/59 Pulmonary Artery Pressure 20/11 Cardiac Output 5.7 Cardiac Index 2.4 - Labs CBC & Chem 7: 02/04/22 07:18 02/04/22 07:18 Labs: Abnormal Lab Results - Last 24 Hours (Table) 02/03/22 02/03/22 02/04/22 Range/Units 16:34 20:20 02:02 RBC (4.30-5.90) m/uL Hgb (13.0-17.5) gm/dL Hct (39.0-53.0) % Sodium (137-145) mmol/L Chloride (98-107) mmol/L BUN (9-20) mg/dL Glucose (74-99) mg/dL POC Glucose (mg/dL) 125 H 126 H 136 H (70-110) mg/dL Calcium (8.4-10.2) mg/dL 02/04/22 02/04/22 02/04/22 Range/Units 06:11 07:18 07:18 RBC 2.74 L (4.30-5.90) m/uL Hgb 8.2 L (13.0-17.5) gm/dL Hct 24.2 L (39.0-53.0) % Sodium 127 L (137-145) mmol/L Chloride 91 L (98-107) mmol/L BUN 29 H (9-20) mg/dL Glucose 113 H (74-99) mg/dL POC Glucose (mg/dL) 120 H (70-110) mg/dL Calcium 7.5 L (8.4-10.2) mg/dL 02/04/22 Range/Units 11:49 RBC (4.30-5.90) m/uL Hgb (13.0-17.5) gm/dL Hct (39.0-53.0) % Sodium (137-145) mmol/L Chloride (98-107) mmol/L BUN (9-20) mg/dL Glucose (74-99) mg/dL POC Glucose (mg/dL) 126 H (70-110) mg/dL Calcium (8.4-10.2) mg/dL
[2022-02-04 16:53] LABS: Glucose,Whole Blood 121 mg/dL (70-110)
[2022-02-04 20:15] LABS: Glucose,Whole Blood 103 mg/dL (70-110)
[2022-02-04] MEDS: SENNOSIDES-DOCUSATE SODIUM 1 EACH TAB PO SCH (20:26)
[2022-02-04] MEDS: MELATONIN 3 MG TABLET PO SCH (20:26)
[2022-02-05 02:13] LABS: Glucose,Whole Blood 115 mg/dL (70-110)
[2022-02-05] MEDS: HEPARIN SODIUM,PORCINE/PF 5,000 UNIT/0.5 ML SYRINGE SQ SCH (04:32)
--- NOTE | 2022-02-05 05:06 | PN ---
PROGRESS NOTE SUBJECTIVE: Mr. Singh is status post bypass surgery, is feeling much better today, recovering well. He had a short run of atrial fib yesterday, currently on oral amiodarone. OBJECTIVE: VITAL SIGNS: Stable, in sinus rhythm. HEART: S1, S2 heard normally. LUNGS: Revealed decent air entry. ABDOMEN: Exam is unchanged. LOWER EXTREMITIES: Exam is unchanged. PLAN: Continue current medications and increase activity and hopefully discharge him soon. MMODL / IJN: [id number] /
--- NOTE | 2022-02-05 05:06 | PN ---
PROGRESS NOTE SUBJECTIVE: Mr. Singh is status post bypass surgery, is feeling much better today, recovering well. He had a short run of atrial fib yesterday, currently on oral amiodarone. OBJECTIVE: VITAL SIGNS: Stable, in sinus rhythm. HEART: S1, S2 heard normally. LUNGS: Revealed decent air entry. ABDOMEN: Exam is unchanged. LOWER EXTREMITIES: Exam is unchanged. PLAN: Continue current medications and increase activity and hopefully discharge him soon. MMODL / IJN: [id number] /
[2022-02-05 06:06] LABS: Glucose,Whole Blood 113 mg/dL (70-110)
[2022-02-05] MEDS: PANTOPRAZOLE 40 MG TABLET PO SCH (06:17)
[2022-02-05] MEDS: INSULIN ASPART (NovoLOG) 100 UNIT/ML VIAL SQ SCH (06:18)
--- NOTE | 2022-02-05 07:35 | XR ---
EXAMINATION TYPE: XR chest 2V DATE OF EXAM: 02/05/2022 COMPARISON: 02/04/2022 HISTORY: Postcardiac surgery TECHNIQUE: Frontal and lateral views of the chest are obtained. FINDINGS: Postsurgical changes of cardiac surgery. No change in the tiny left pleural effusion. No pneumothorax. Heart size and pulmonary vasculature normal. Lungs clear of interstitial or airspace opacity IMPRESSION: No change in the tiny left pleural effusion with no other significant abnormality seen.
--- NOTE | 2022-02-05 07:36 | P.PN ---
Subjective Progress Note Date: 02/05/22 Principal diagnosis: CAD and status post CABG This is a pleasant 71-year-old gentleman with a past medical history significant for hypertension and dyslipidemia who presented to the hospital about a week ago with a chest discomfort and ruled in for acute coronary event. He underwent a heart catheterization by Dr. Lane and was found to have severe left main coronary artery disease. He underwent CABG. The patient was seen this morning. He is asymptomatic. He is hemodynamically stable. He is on maximize medical treatment including dual antiplatelet therapy along with high intensity statin along with beta barbara. He is also on amiodarone by mouth. From the cardiovascular standpoint of view, the patient potentially can be discharged home. Objective - Vital Signs Vital signs: Vital Signs Temp 98.5 F 02/04/22 20:00 Pulse 66 02/05/22 04:00 Resp 18 02/05/22 05:00 BP 126/68 02/05/22 04:00 Pulse Ox 95 02/05/22 05:00 FiO2 50 01/31/22 23:45 Intake & Output 02/04/22 02/05/22 02/05/22 18:59 06:59 18:59 Intake Total 838 360 Output Total 400 675 Balance 438 -315 Weight 114.3 kg Intake: Oral 838 360 Output: Urine 400 675 Other: Voiding Method Toilet Toilet ABP, PAP, CO, CI - Last Documented Arterial Blood Pressure 125/59 Pulmonary Artery Pressure 20/11 Cardiac Output 5.7 Cardiac Index 2.4 - Constitutional General appearance: Present: no acute distress - Respiratory Respiratory: bilateral: diminished - Cardiovascular Rhythm: regular - Labs CBC & Chem 7: 02/04/22 07:18 02/04/22 07:18 Labs: Abnormal Lab Results - Last 24 Hours (Table) 02/04/22 02/04/22 02/04/22 Range/Units 07:18 07:18 11:49 RBC 2.74 L (4.30-5.90) m/uL Hgb 8.2 L (13.0-17.5) gm/dL Hct 24.2 L (39.0-53.0) % Sodium 127 L (137-145) mmol/L Chloride 91 L (98-107) mmol/L BUN 29 H (9-20) mg/dL Glucose 113 H (74-99) mg/dL POC Glucose (mg/dL) 126 H (70-110) mg/dL Calcium 7.5 L (8.4-10.2) mg/dL 02/04/22 02/05/22 02/05/22 Range/Units 16:48 02:02 06:04 RBC (4.30-5.90) m/uL Hgb (13.0-17.5) gm/dL Hct (39.0-53.0) % Sodium (137-145) mmol/L Chloride (98-107) mmol/L BUN (9-20) mg/dL Glucose (74-99) mg/dL POC Glucose (mg/dL) 121 H 115 H 113 H (70-110) mg/dL Calcium (8.4-10.2) mg/dL Assessment and Plan Assessment: Assessment #1 CAD and status post CABG #2 acute non-ST patient myocardial infarction #3 hypertension next #4 dyslipidemia Plan #1 continue the current medical regimen #2 hospital discharge in the next 12-24 hour
[2022-02-05] MEDS ORDERED: FUROSEMIDE 10 MG/ML 2 ML VIAL IV STA (07:54)
[2022-02-05] MEDS: IPRATROPIUM-ALBUTEROL 3 ML NEB INHALATION SCH (07:59)
--- NOTE | 2022-02-05 08:17 | P.PN ---
Subjective Progress Note Date: 02/05/22 Principal diagnosis: Triple-vessel coronary artery disease, non-ST elevated myocardial infarction this admission. Previuos medical history of hypertension, hyperlipidemia, previous tobacco dependence, obstructive sleep apnea without CPAP use, anxiety, family history of early onset coronary artery disease with his dad having a myocardial infarction at age 45. POD #5 Off pump coronary artery bypass grafting x 3. Left internal mammary artery to left anterior descending coronary artery, a reverse greater saphenous vein graft to 1st obtuse marginal coronary artery, a reverse greater saphenous vein graft to posterior descending coronary artery, Left atrial appendage ligation with #35 AtriClip, endoscopic bilateral greater saphenous vein harvest, graft flow measurements using medi-stim system, and intraoperative transesophageal echocardiogram performed by anesthesia. Postoperative acute blood loss anemia, expected given hemodilution Brief episodes A. fib yesterday which is a known common occurrence after open heart surgery, converted to sinus rhythm with IV amiodarone The patient was seen and examined sitting up in a recliner on the cardiac stepdown unit in no acute distress. States pain is controlled on current medication regimen, denies shortness of breath. Currently in sinus rhythm, hemodynamically stable. He has remained in sinus rhythm without any further episodes of atrial fibrillation. Remains on room air and able to achieve 2000 mL on his incentive spirometry. He has been ambulatory without difficulty, received first postoperative shower yesterday. Feels ready to go home today. No other new concerns. Objective - Vital Signs Vital signs: Vital Signs Temp 98.5 F 02/04/22 20:00 Pulse 66 02/05/22 04:00 Resp 18 02/05/22 05:00 BP 126/68 02/05/22 04:00 Pulse Ox 95 02/05/22 07:38 FiO2 50 01/31/22 23:45 Intake & Output 02/04/22 02/05/22 02/05/22 18:59 06:59 18:59 Intake Total 838 360 Output Total 400 675 Balance 438 -315 Weight 114.3 kg Intake: Oral 838 360 Output: Urine 400 675 Other: Voiding Method Toilet Toilet ABP, PAP, CO, CI - Last Documented Arterial Blood Pressure 125/59 Pulmonary Artery Pressure 20/11 Cardiac Output 5.7 Cardiac Index 2.4 - Exam CONSTITUTIONAL: Appears comfortable, cooperative, no acute distress RESPIRATORY: Lungs sounds diminished bilaterally. Respirations even, nonlabored. Currently on room air with oxygen saturation 95%. Able to achieve 2000 mL on incentive spirometry. Strong cough. CARDIOVASCULAR: S1, S2 present. Regular rate and rhythm, sinus rhythm on telemetry. Sternum stable. Palpable peripheral pulses bilaterally. No edema present. No calf pain or tenderness noted. Heart hugger in place with patient demonstrating appropriate use. Antiembolism stockings, SCDs present. GASTROINTESTINAL: Abdomen soft, nontender, nondistended. Active bowel sounds present 4 quadrants. Tolerating diet. Positive bowel movement GENITOURINARY: Continues to void, output 1075 mL in the last 24 hours INTEGUMENTARY: Skin is warm and dry with evidence of good perfusion. Anterior chest incision well approximated. Bilateral lower extremity EVH sites well approximated without redness or drainage. NEUROLOGIC: Cranial nerves II through XII intact MUSKULOSKELETAL: Able to move all extremities, strength equal bilaterally, gait normal PSYCHIATRIC: Alert and oriented to person place and time, appropriate affect, intact judgment and insight - Allied health notes Allied health notes reviewed: nursing - Labs CBC & Chem 7: 02/04/22 07:18 02/04/22 07:18 Labs: Abnormal Lab Results - Last 24 Hours (Table) 02/04/22 02/04/22 02/05/22 Range/Units 11:49 16:48 02:02 POC Glucose (mg/dL) 126 H 121 H 115 H (70-110) mg/dL 02/05/22 Range/Units 06:04 POC Glucose (mg/dL) 113 H (70-110) mg/dL - Imaging and Cardiology Chest x-ray: report reviewed, image reviewed Assessment and Plan Assessment: 1. Triple-vessel coronary artery disease, non-ST elevated myocardial infarction this admission, status post three-vessel CABG 2. History of hypertension 3. Hyperlipidemia, cholesterol 188, LDL 108 4. Previous tobacco dependence, preoperative FEV1 81% predicted 5. Obstructive sleep apnea without CPAP use 6. Anxiety 7. Family history of early onset coronary artery disease with his dad having a myocardial infarction at age 45 8. Postoperative acute blood loss anemia, expected given hemodilution 9. Brief episodes of atrial fibrillation, currently sinus, status post left atrial appendage ligation Plan: 1. Continue to maximize medical therapy with full strength aspirin, statin, Plavix and beta barbara 2. Continue amiodarone, will discharge on the stepdown dose. No anticoagulation necessary 3. Encourage incentive spirometry 10 times every hour while awake. Bronchodilators per pulmonology. 4. Increase activity, ambulate as tolerated. PT/OT/cardiac rehab following. 5. Will monitor daily labs and chest x-ray. Electrolyte replacement per protocol. Will give 20 mg IVP lasix x 1 6. Pain control with current medication regimen. 7. Insulin management per internal medicine. Patient is not diabetic, preoperative hemaglobin A1c 6.1%. 8. Strict accurate intake and output, daily weights 9. Patient to shower daily 10. Discharge planning in progress, anticipate discharge to home with home care today
[2022-02-05 10:04] LABS: HCT 24.4 % (39.0-53.0); HGB 8.3 gm/dL (13.0-17.5); MCH 30.7 pg (25.0-35.0); MCHC 33.9 g/dL (31.0-37.0); MCV 90.6 fL (80.0-100.0); Mean Platelet Volume 9.6; Platelet Count 284 k/uL (150-450); RDW 13.6 % (11.5-15.5); WBC 5.5 k/uL (3.8-10.6)
[2022-02-05] MEDS: CLOPIDOGREL 75 MG TAB PO SCH (10:18)
[2022-02-05] MEDS: ASPIRIN 325 MG TAB PO SCH (10:18)
[2022-02-05] MEDS: guaiFENesin 600 MG TABLET.ER PO SCH (10:18)
[2022-02-05] MEDS: AMIODARONE 200 MG TAB PO SCH (10:18)
[2022-02-05] MEDS: ATORVASTATIN 40 MG TAB PO SCH (10:19)
[2022-02-05] MEDS: METOPROLOL TARTRATE 50 MG TAB PO SCH (10:19)
--- NOTE | 2022-02-05 10:34 | P.DS ---
Providers Date of admission: 01/29/22 15:32 Expected date of discharge: 02/05/22 Attending physician: Faisal Huynh MD Consults: 01/29/22 15:31 Consult Physician Urgent Consulting Provider: [facility] Consult Reason/Comments: acute chest pain, nstemi Do you want consulting provider notified?: Yes 01/30/22 11:49 Consult Physician Routine Consulting Provider: Monica Soto Consult Reason/Comments: Pulmonary management preoperative CABG Do you want consulting provider notified?: Yes 01/30/22 12:07 Consult to Anesthesia Routine Consulting Provider: Anesthesia,Services Consult Reason/Comments: Cardiac Surgery Pre-Op 01/31/22 20:19 Consult Physician Routine Consulting Provider: Abhijit Garsia Consult Reason/Comments: Medical management Do you want consulting provider notified?: Yes Primary care physician: Chan Gutierrez [facility] Course: FINAL DIAGNOSIS: 1. Triple-vessel coronary artery disease, non-STEMI this admission 2. History of hypertension 3. Hyperlipidemia, cholesterol 188, LDL 108 4. Previous tobacco dependence, preoperative FEV1 81% of predicted 5. Obstructive sleep apnea without CPAP use 6. Anxiety 7. History of premature coronary artery disease 8. Postoperative acute blood loss anemia, expected 9. Brief episode of atrial fibrillation, common after open heart surgery, discharged in sinus rhythm PRINCIPAL PROCEDURE: 1. Off-pump coronary artery bypass grafting 3, left internal mammary artery to the left anterior descending coronary artery, reverse greater saphenous vein graft to the first obtuse marginal coronary artery, reverse greater saphenous vein graft to posterior descending coronary artery 2. Left atrial appendage ligation with 35 mm AtriClip 3. Endoscopic harvesting bilateral greater saphenous veins 4. Graft flow measurements using the Medistim system 5. Intraoperative transesophageal echocardiogram performed by anesthesia HISTORY OF PRESENT ILLNESS: This is a 71-year-old gentleman who follows on an outpatient basis with Dr. Gutierrez for primary care. He presented to [facility] with complaints of intermittent chest pressure as well as had pressure relieved with rest. A 12-lead EKG was completed demonstrating sinus bradycardia with first-degree AV block and occasional PVCs. Troponins were elevated in the patient was ruled in for non-STEMI. He was taken to the It Project Lead which demonstrated 50-60% stenosis to the left main coronary artery, 90% stenosis of the proximal left anterior descending coronary artery, and 90% stenosis to the right coronary artery. Workup included a transthoracic echocardiogram which demonstrated normal left ventricular systolic function with EF 50%, mild mitral and mild tricuspid regurgitation. Consultation was placed to Dr. Faisal Huynh from cardiothoracic surgery. He was recommended to undergo coronary artery bypass surgery. The usual perioperative course was discussed in detail with the patient and his family, all risks and benefits were explained, all questions were answered, and consent was obtained to proceed with surgery. The patient was kept inpatient due to the nature of his disease process. HOSPITAL COURSE: The patient was brought to the preoperative area 01/31/2022, prepared in the usual fashion, and subsequently taken to the operating room where Dr. Huynh performed three-vessel off-pump CABG. Upon completion of surgery the patient was transferred to the cardiovascular intensive care unit where he was recovered and monitored hemodynamically. He was extubated, all lines, tubes, and drips were discontinued when appropriate, and he was transferred to 3 S. cardiac stepdown unit for further monitoring and rehabilitation. He did experience a brief episode of atrial fibrillation which converted to sinus rhythm with initiation of amiodarone. His oxygen was titrated down, he continued to work with physical and occupational therapy, he was tolerating oral diet, his pain was controlled, and he was ready to be discharged to home with [facility] on postoperative day #5. He received written and verbal instruction regarding his medications, activity restrictions, signs and symptoms requiring physician notification, and follow-up appointments. He is being discharged on a tapered dose of amiodarone and no anticoagulation necessary. Patient Condition at Discharge: Stable Plan - Discharge Summary Discharge Rx Participant: No New Discharge Prescriptions: New Atorvastatin [Lipitor] 40 mg PO DAILY #30 tab Metoprolol Tartrate [Lopressor] 50 mg PO BID #60 tab Pantoprazole [Protonix] 40 mg PO AC-BRKFST #30 tab Amiodarone [Cordarone] 400 mg PO BID #48 tab Furosemide [Lasix] 20 mg PO DAILY #5 tab guaiFENesin [Mucinex] 1,200 mg PO Q12HR tab Clopidogrel [Plavix] 75 mg PO DAILY #30 tab Sennosides-Docusate Sodium [Senokot-S] 2 each PO HS PRN tab PRN Reason: Constipation Acetaminophen Tab [Tylenol] 1,000 mg PO Q6HR PRN tab PRN Reason: Fever And/ Or Pain Continue HYDROcodone/APAP 10-325MG [[place] 10-325] 1 tab PO TID PRN PRN Reason: Pain Aspirin EC [Ecotrin Low Dose] 81 mg PO DAILY LORazepam [Ativan] 0.5 mg PO HS PRN PRN Reason: SLEEP/ANXIETY Discontinued Isosorbide Mononitrate [Isosorbide Mononitrate ER] 30 mg PO DAILY Metoprolol Succinate (ER) [Toprol Xl] 100 mg PO DAILY Discharge Medication List Aspirin EC [Ecotrin Low Dose] 81 mg PO DAILY 01/29/22 [History] HYDROcodone/APAP 10-325MG [[place] 10-325] 1 tab PO TID PRN 01/29/22 [History] LORazepam [Ativan] 0.5 mg PO HS PRN 01/29/22 [History] Acetaminophen Tab [Tylenol] 1,000 mg PO Q6HR PRN tab 02/05/22 [Rx] Amiodarone [Cordarone] 400 mg PO BID #48 tab 02/05/22 [Rx] Atorvastatin [Lipitor] 40 mg PO DAILY #30 tab 02/05/22 [Rx] Clopidogrel [Plavix] 75 mg PO DAILY #30 tab 02/05/22 [Rx] Furosemide [Lasix] 20 mg PO DAILY #5 tab 02/05/22 [Rx] Metoprolol Tartrate [Lopressor] 50 mg PO BID #60 tab 02/05/22 [Rx] Pantoprazole [Protonix] 40 mg PO AC-BRKFST #30 tab 02/05/22 [Rx] Sennosides-Docusate Sodium [Senokot-S] 2 each PO HS PRN tab 02/05/22 [Rx] guaiFENesin [Mucinex] 1,200 mg PO Q12HR tab 02/05/22 [Rx] Follow up Appointment(s)/Referral(s): Monica Soto MD [STAFF PHYSICIAN] - 03/01/22 2:00 pm [facility] - 1-2 Days (First visit day after discharge, then 2-3 times per week for 4 weeks) Ludwin Muhammad NPC [Nurse Practitioner] - 02/11/22 1:15 pm (You will be seen in the surgeon's office behind the hospital in [facility], [address] [place] [address] [address]. Office phone number is ) BrendaChan DO [Primary Care Provider] - 02/16/22 1:30 pm Faisal Huynh MD [STAFF PHYSICIAN] - 03/04/22 2:00 pm Monico Kuhn MD [STAFF PHYSICIAN] - 02/17/22 3:00 pm Ambulatory/Diagnostic Orders: Complete Blood Count w/diff [LAB.AMB] Time Frame: 3 Days, Location: None Selected Comprehensive Metabolic Panel [LAB.AMB] Time Frame: 3 Days, Location: None Selected Activity/Diet/Wound Care/Special Instructions: DISCHARGE INSTRUCTIONS: 1. No driving for 4 weeks, or until physician gives their ok. 2. The patient should sleep in their own bed, no medical bed needed. 3. Stairs are not an issue. If the bedroom is upstairs, it is advised that the patient go up at night and down in the morning for the first week. Go slowly, using handrail and take 1 step at a time. 4. BHAVANI hose are to be worn for 30 days post surgery or until physician discontinues. 5. Heart hugger is to be worn 100% of the time until physician discontinues.(except when showering) 6. No lifting, pushing, or pulling more than 10 pounds for 12 weeks. The physician will advise of any restriction changes. 7. The patient is expected to continue the prescribed walking program. 8. Continue pain control per as needed orders. 9. Continue with incentive spirometry and splinting/heart hugger until otherwise directed by the physician. 10. Must shower daily using liquid antibacterial soap 11. Routine sternal incision care. No powders, lotions, ointments on incisions. No dressings are necessary on incisions unless they are draining. Dermabond tape is to remain on sternal incision until surgeon follow-up. 12. Please call surgeon/COMMERCIAL LOAN ADMINISTRATOR for temp greater than 101 F or purulent drainage from incisions. 13. You should weigh yourself daily, record and bring log with you to follow up appointments. 14. All prescriptions given by surgeon for 30 days. Refills need to be filled through tube builder/primary care physician. 15. A Red armband has been placed on the patient. It should be worn for 30 days post discharge from surgery and will be removed by the cardiac surgeons. If an ER visit is necessary, please make sure the number on the Red armband is called before going to ER. 16. You have been referred to and are expected to begin Cardiac Rehab in approximately 4-6 weeks. HOME HEALTH SERVICES TO PROVIDE: RN SKILLED HOME CARE SERVICES FOR POST-OP SURGICAL PATIENTS WITH THE FOLLOWING: Coronary Artery Bypass Surgery (CABG), Mitral Valve Replacement/Repair ( MVR), Aortic Valve Replacement/Repair (AVR) RN TO CONTINUE EDUCATION FROM ``ROAD TO A HEALTH HEART PATIENT EDUCATION MANUAL (GIVEN TO PATIENT IN THE HOSPITAL) MEDICATION RECONCILIATION WITH EDUCATION NEEDED ON FIRST HOME VISIT EMPHASIZE IMPORTANCE OF WEARING BREAST SUPPORT/HEART HUGGER ENCOURAGE USE OF INCENTIVE SPIROMETER 10 X EVERY HOUR WHILE AWAKE ENCOURAGE UTILIZATION OF LOWER EXTREMITY COMPRESSION STOCKINGS/BHAVANI HOSE and ELEVATE LEGS ABOVE LEVEL OF HEART WHILE AT REST. ENCOURAGE AMBULATION 3-5x/day INCREASING TOLERATES, WHILE AVOIDING EXTREMES IN TEMPERATURE FREQUENCY: RN TO OPEN THE PATIENT WITHIN 24 HOURS OF DISCHARGE FROM THE HOSPITAL WITH TELEHEALTH INSTALLED AT [facility], RN TO VISIT 2-3 X A WEEK FOR 4 WEEKS ESTABLISHED BY PATIENT NEEDS. LABORATORY: CBC, CMP TO BE DRAWN ON THE THIRD DAY HOME, (RAN STAT) FAX RESULTS TO [phone]. TELEHEALTH PARAMETERS: WEIGHT: NOTIFY MD OF WEIGHT GAIN OF 2 LBS IN 24 HOURS OR 5 LBS IN ONE WEEK HR: NOTIFY MD OF HR <55 BPM OR HR>100 BPM BP: NOTIFY MD IF BP <90/55 OR BP>140/100 O2 SAT: NOTIFY MD IF PO2<93% ON ROOM AIR SEND TELEHEALTH REPORT TO LOG CHIPPER OPERATOR AND CARDIOVASCULAR SURGEON THE FIRST WEEK OF CARE AND THEN BI-WEEKLY. PLEASE ADDITIONALLY COMMUNICATE ANY ABNORMALS AND NEW FINDINGS TO THE SURGEONS OFFICE. Discharge Disposition: HOME WITH HOME HEALTH SERVICES
--- NOTE | 2022-02-05 10:34 | P.DS ---
Providers Date of admission: 01/29/22 15:32 Expected date of discharge: 02/05/22 Attending physician: Faisal Huynh MD Consults: 01/29/22 15:31 Consult Physician Urgent Consulting Provider: [facility] Consult Reason/Comments: acute chest pain, nstemi Do you want consulting provider notified?: Yes 01/30/22 11:49 Consult Physician Routine Consulting Provider: Monica Soto Consult Reason/Comments: Pulmonary management preoperative CABG Do you want consulting provider notified?: Yes 01/30/22 12:07 Consult to Anesthesia Routine Consulting Provider: Anesthesia,Services Consult Reason/Comments: Cardiac Surgery Pre-Op 01/31/22 20:19 Consult Physician Routine Consulting Provider: Abhijit Garsia Consult Reason/Comments: Medical management Do you want consulting provider notified?: Yes Primary care physician: Chan Gutierrez [facility] Course: FINAL DIAGNOSIS: 1. Triple-vessel coronary artery disease, non-STEMI this admission 2. History of hypertension 3. Hyperlipidemia, cholesterol 188, LDL 108 4. Previous tobacco dependence, preoperative FEV1 81% of predicted 5. Obstructive sleep apnea without CPAP use 6. Anxiety 7. History of premature coronary artery disease 8. Postoperative acute blood loss anemia, expected 9. Brief episode of atrial fibrillation, common after open heart surgery, discharged in sinus rhythm PRINCIPAL PROCEDURE: 1. Off-pump coronary artery bypass grafting 3, left internal mammary artery to the left anterior descending coronary artery, reverse greater saphenous vein graft to the first obtuse marginal coronary artery, reverse greater saphenous vein graft to posterior descending coronary artery 2. Left atrial appendage ligation with 35 mm AtriClip 3. Endoscopic harvesting bilateral greater saphenous veins 4. Graft flow measurements using the Medistim system 5. Intraoperative transesophageal echocardiogram performed by anesthesia HISTORY OF PRESENT ILLNESS: This is a 71-year-old gentleman who follows on an outpatient basis with Dr. Gutierrez for primary care. He presented to [facility] with complaints of intermittent chest pressure as well as had pressure relieved with rest. A 12-lead EKG was completed demonstrating sinus bradycardia with first-degree AV block and occasional PVCs. Troponins were elevated in the patient was ruled in for non-STEMI. He was taken to the Bolt Loader which demonstrated 50-60% stenosis to the left main coronary artery, 90% stenosis of the proximal left anterior descending coronary artery, and 90% stenosis to the right coronary artery. Workup included a transthoracic echocardiogram which demonstrated normal left ventricular systolic function with EF 50%, mild mitral and mild tricuspid regurgitation. Consultation was placed to Dr. Faisal Huynh from cardiothoracic surgery. He was recommended to undergo coronary artery bypass surgery. The usual perioperative course was discussed in detail with the patient and his family, all risks and benefits were explained, all questions were answered, and consent was obtained to proceed with surgery. The patient was kept inpatient due to the nature of his disease process. HOSPITAL COURSE: The patient was brought to the preoperative area 01/31/2022, prepared in the usual fashion, and subsequently taken to the operating room where Dr. Huynh performed three-vessel off-pump CABG. Upon completion of surgery the patient was transferred to the cardiovascular intensive care unit where he was recovered and monitored hemodynamically. He was extubated, all lines, tubes, and drips were discontinued when appropriate, and he was transferred to 3 S. cardiac stepdown unit for further monitoring and rehabilitation. He did experience a brief episode of atrial fibrillation which converted to sinus rhythm with initiation of amiodarone. His oxygen was titrated down, he continued to work with physical and occupational therapy, he was tolerating oral diet, his pain was controlled, and he was ready to be discharged to home with [facility] on postoperative day #5. He received written and verbal instruction regarding his medications, activity restrictions, signs and symptoms requiring physician notification, and follow-up appointments. He is being discharged on a tapered dose of amiodarone and no anticoagulation necessary. Patient Condition at Discharge: Stable Plan - Discharge Summary Discharge Rx Participant: No New Discharge Prescriptions: New Atorvastatin [Lipitor] 40 mg PO DAILY #30 tab Metoprolol Tartrate [Lopressor] 50 mg PO BID #60 tab Pantoprazole [Protonix] 40 mg PO AC-BRKFST #30 tab Amiodarone [Cordarone] 400 mg PO BID #48 tab Furosemide [Lasix] 20 mg PO DAILY #5 tab guaiFENesin [Mucinex] 1,200 mg PO Q12HR tab Clopidogrel [Plavix] 75 mg PO DAILY #30 tab Sennosides-Docusate Sodium [Senokot-S] 2 each PO HS PRN tab PRN Reason: Constipation Acetaminophen Tab [Tylenol] 1,000 mg PO Q6HR PRN tab PRN Reason: Fever And/ Or Pain Continue HYDROcodone/APAP 10-325MG [[place] 10-325] 1 tab PO TID PRN PRN Reason: Pain Aspirin EC [Ecotrin Low Dose] 81 mg PO DAILY LORazepam [Ativan] 0.5 mg PO HS PRN PRN Reason: SLEEP/ANXIETY Discontinued Isosorbide Mononitrate [Isosorbide Mononitrate ER] 30 mg PO DAILY Metoprolol Succinate (ER) [Toprol Xl] 100 mg PO DAILY Discharge Medication List Aspirin EC [Ecotrin Low Dose] 81 mg PO DAILY 01/29/22 [History] HYDROcodone/APAP 10-325MG [[place] 10-325] 1 tab PO TID PRN 01/29/22 [History] LORazepam [Ativan] 0.5 mg PO HS PRN 01/29/22 [History] Acetaminophen Tab [Tylenol] 1,000 mg PO Q6HR PRN tab 02/05/22 [Rx] Amiodarone [Cordarone] 400 mg PO BID #48 tab 02/05/22 [Rx] Atorvastatin [Lipitor] 40 mg PO DAILY #30 tab 02/05/22 [Rx] Clopidogrel [Plavix] 75 mg PO DAILY #30 tab 02/05/22 [Rx] Furosemide [Lasix] 20 mg PO DAILY #5 tab 02/05/22 [Rx] Metoprolol Tartrate [Lopressor] 50 mg PO BID #60 tab 02/05/22 [Rx] Pantoprazole [Protonix] 40 mg PO AC-BRKFST #30 tab 02/05/22 [Rx] Sennosides-Docusate Sodium [Senokot-S] 2 each PO HS PRN tab 02/05/22 [Rx] guaiFENesin [Mucinex] 1,200 mg PO Q12HR tab 02/05/22 [Rx] Follow up Appointment(s)/Referral(s): Monica Soto MD [STAFF PHYSICIAN] - 03/01/22 2:00 pm [facility] - 1-2 Days (First visit day after discharge, then 2-3 times per week for 4 weeks) Ludwin Muhammad NPC [Nurse Practitioner] - 02/11/22 1:15 pm (You will be seen in the surgeon's office behind the hospital in [facility], [address] [place] [address] [address]. Office phone number is ) BrendaChan DO [Primary Care Provider] - 02/16/22 1:30 pm Faisal Huynh MD [STAFF PHYSICIAN] - 03/04/22 2:00 pm Monico Kuhn MD [STAFF PHYSICIAN] - 02/17/22 3:00 pm Ambulatory/Diagnostic Orders: Complete Blood Count w/diff [LAB.AMB] Time Frame: 3 Days, Location: None Selected Comprehensive Metabolic Panel [LAB.AMB] Time Frame: 3 Days, Location: None Selected Activity/Diet/Wound Care/Special Instructions: DISCHARGE INSTRUCTIONS: 1. No driving for 4 weeks, or until physician gives their ok. 2. The patient should sleep in their own bed, no medical bed needed. 3. Stairs are not an issue. If the bedroom is upstairs, it is advised that the patient go up at night and down in the morning for the first week. Go slowly, using handrail and take 1 step at a time. 4. BHAVANI hose are to be worn for 30 days post surgery or until physician discontinues. 5. Heart hugger is to be worn 100% of the time until physician discontinues.(except when showering) 6. No lifting, pushing, or pulling more than 10 pounds for 12 weeks. The physician will advise of any restriction changes. 7. The patient is expected to continue the prescribed walking program. 8. Continue pain control per as needed orders. 9. Continue with incentive spirometry and splinting/heart hugger until otherwise directed by the physician. 10. Must shower daily using liquid antibacterial soap 11. Routine sternal incision care. No powders, lotions, ointments on incisions. No dressings are necessary on incisions unless they are draining. Dermabond tape is to remain on sternal incision until surgeon follow-up. 12. Please call surgeon/DOCUMENT DESIGN SPECIALIST for temp greater than 101 F or purulent drainage from incisions. 13. You should weigh yourself daily, record and bring log with you to follow up appointments. 14. All prescriptions given by surgeon for 30 days. Refills need to be filled through fisher pot/primary care physician. 15. A Red armband has been placed on the patient. It should be worn for 30 days post discharge from surgery and will be removed by the cardiac surgeons. If an ER visit is necessary, please make sure the number on the Red armband is called before going to ER. 16. You have been referred to and are expected to begin Cardiac Rehab in approximately 4-6 weeks. HOME HEALTH SERVICES TO PROVIDE: RN SKILLED HOME CARE SERVICES FOR POST-OP SURGICAL PATIENTS WITH THE FOLLOWING: Coronary Artery Bypass Surgery (CABG), Mitral Valve Replacement/Repair ( MVR), Aortic Valve Replacement/Repair (AVR) RN TO CONTINUE EDUCATION FROM ``ROAD TO A HEALTH HEART PATIENT EDUCATION MANUAL (GIVEN TO PATIENT IN THE HOSPITAL) MEDICATION RECONCILIATION WITH EDUCATION NEEDED ON FIRST HOME VISIT EMPHASIZE IMPORTANCE OF WEARING BREAST SUPPORT/HEART HUGGER ENCOURAGE USE OF INCENTIVE SPIROMETER 10 X EVERY HOUR WHILE AWAKE ENCOURAGE UTILIZATION OF LOWER EXTREMITY COMPRESSION STOCKINGS/BHAVANI HOSE and ELEVATE LEGS ABOVE LEVEL OF HEART WHILE AT REST. ENCOURAGE AMBULATION 3-5x/day INCREASING TOLERATES, WHILE AVOIDING EXTREMES IN TEMPERATURE FREQUENCY: RN TO OPEN THE PATIENT WITHIN 24 HOURS OF DISCHARGE FROM THE HOSPITAL WITH TELEHEALTH [place]STALLED [place] [facility], RN TO VISIT 2-3 X A WEEK FOR 4 WEEKS ESTABLISHED BY PATIENT NEEDS. LABORATORY: CBC, CMP TO BE DRAWN ON THE THIRD DAY HOME, (RAN STAT) FAX RESULTS TO [phone]. TELEHEALTH PARAMETERS: WEIGHT: NOTIFY MD OF WEIGHT GAIN OF 2 LBS IN 24 HOURS OR 5 LBS IN ONE WEEK HR: NOTIFY MD OF HR <55 BPM OR HR>100 BPM BP: NOTIFY MD IF BP <90/55 OR BP>140/100 O2 SAT: NOTIFY MD IF PO2<93% ON ROOM AIR SEND TELEHEALTH REPORT TO HOTEL ASSISTANT MANAGER AND CARDIOVASCULAR SURGEON THE FIRST WEEK OF CARE AND THEN BI-WEEKLY. PLEASE ADDITIONALLY COMMUNICATE ANY ABNORMALS AND NEW FINDINGS TO THE SURGEONS OFFICE. Discharge Disposition: HOME WITH HOME HEALTH SERVICES
[2022-02-05 10:36] LABS: African American GFR (CKD) >90 (>60 ml/min/1.73 sqM); Anion Gap 12 mmol/L; Blood Urea Nitrogen 27 mg/dL (9-20); Calcium 8.2 mg/dL (8.4-10.2); Carbon Dioxide 23 mmol/L (22-30); Chloride 96 mmol/L (98-107); Glucose 98 mg/dL (74-99); Non-African American GFR(CKD) >90 (>60 ml/min/1.73 sqM); Potassium 4.2 mmol/L (3.5-5.1); Sodium 131 mmol/L (137-145)
[2022-02-05 10:38] VITALS: BP 107/56; PULSE 82; RESP 16; TEMP 98.7
--- NOTE | 2022-02-06 12:43 | PN ---
PROGRESS NOTE HISTORY OF PRESENT ILLNESS: This is a 71-year-old male, postop day #5, status post 3-vessel bypass grafting. The patient is doing well. He is resting comfortably, in room 377. The plan is for possible discharge home today. The patient states that he is doing well. He is on room air. Not receiving any IV fluids. PHYSICAL EXAMINATION: VITAL SIGNS: Current vital signs include temperature 98.7, heart rate 82, respiratory rate 16, blood pressure 107/56 with mean of 73 and room air saturation of 97%. He appears in no acute distress. HEENT: Grossly unremarkable. NECK: Supple, full range of motion. No adenopathy. Neck veins are flat. CARDIOVASCULAR: Examination reveals regular rhythm rate. S1, S2 normal. No heart murmur. LUNGS: Relatively clear. Scattered rhonchi. No wheezes or crackles. Breath sounds equal. ABDOMEN: Soft, bowel sounds are heard. EXTREMITIES: Intact. No cyanosis, clubbing, or edema. SKIN: Without rash. NEUROLOGIC: Examination is nonfocal. LABORATORY DATA: White count 5.5, hemoglobin 8.3, hematocrit 24.4, and platelet count 284,000. Sodium 131, potassium 4.2, chloride 96, CO2 23, anion gap 12, BUN 27, creatinine 0.77. Chest x-ray today shows a tiny left-sided pleural effusion. ASSESSMENT: 1. Postoperative day #5, status post 3-vessel bypass grafting. 2. Routine postoperative ventilator management, with extubation in less than 6 hours. 3. Acute [id number] elevation myocardial infarction. 4. Significant coronary artery disease, with anticipated bypass grafting, January 31, 2022. 5. History of hypertension. 6. History of hyperlipidemia. 7. No history of any significant pulmonary disease at this time. PLAN: The patient will likely be discharged home today. He is on room air. He is not receiving any IV fluids. The patient will follow up with me in the office. At that time, we will likely do a chest x-ray. I encouraged him to take his incentive spirometer home with him, and continue to use it. No additional recommendations are made. Prognosis is thought to be generally good. MMODL / IJN: [id number] /
== END 2022-02-05 10:52 | disposition home health service (06) | DRG 234 ==
LOC: EC 13:12 → 3SCARD 15:32 → 2SICU 01-31 11:37 → 3SCARD 02-03 13:06
PROVIDERS: ADMIT Thoracic Surgery (Cardiothoracic Vascular Surgery); ATTEND Thoracic Surgery (Cardiothoracic Vascular Surgery)
PROC: 4A023N7 Measurement of Cardiac Sampling and Pressure, Left Heart, Percutaneous Approach (ICD-10-PCS; 2022-01-30)
PROC: B2111ZZ Fluoroscopy of Multiple Coronary Arteries using Low Osmolar Contrast (ICD-10-PCS; 2022-01-30)
PROC: 02L70CK Occlusion of Left Atrial Appendage with Extraluminal Device, Open Approach (ICD-10-PCS; principal; 2022-01-31 14:15)
PROC: 02100Z9 Bypass Coronary Artery, One Artery from Left Internal Mammary, Open Approach (ICD-10-PCS; principal; 2022-01-31 14:15)
PROC: 06BP4ZZ Excision of Right Saphenous Vein, Percutaneous Endoscopic Approach (ICD-10-PCS; principal; 2022-01-31 14:15)
PROC: 021109W Bypass Coronary Artery, Two Arteries from Aorta with Autologous Venous Tissue, Open Approach (ICD-10-PCS; principal; 2022-01-31 14:15)
PROC: 4A0305C Measurement of Arterial Flow, Coronary, Open Approach (ICD-10-PCS; principal; 2022-01-31 14:15)
PROC: 06BQ4ZZ Excision of Left Saphenous Vein, Percutaneous Endoscopic Approach (ICD-10-PCS; principal; 2022-01-31 14:15)
PROC: B24BZZ4 Ultrasonography of Heart with Aorta, Transesophageal (ICD-10-PCS; 2022-01-31 14:15)
DX: I21.4 Non-ST elevation (NSTEMI) myocardial infarction (principal); D62 Acute posthemorrhagic anemia; J98.11 Atelectasis; I11.9 Hypertensive heart disease without heart failure; E66.01 Morbid (severe) obesity due to excess calories; I48.91 Unspecified atrial fibrillation; E78.5 Hyperlipidemia, unspecified; I25.10 Atherosclerotic heart disease of native coronary artery without angina pectoris; G47.33 Obstructive sleep apnea (adult) (pediatric); I44.0 Atrioventricular block, first degree; R00.1 Bradycardia, unspecified; G89.29 Other chronic pain; M54.50 Low back pain, unspecified; Z68.37 Body mass index [BMI] 37.0-37.9, adult; F41.9 Anxiety disorder, unspecified; Z79.82 Long term (current) use of aspirin; Z79.899 Other long term (current) drug therapy; Z87.891 Personal history of nicotine dependence; Z71.3 Dietary counseling and surveillance; Z82.49 Family history of ischemic heart disease and other diseases of the circulatory system
CPT/HCPCS: 36415; 71045; 71046; 71250; 80048; 80053; 80061; 80074; 81003; 82330; 82805; 83036; 83690; 83735; 83880; 84443; 84484; 85025; 85027; 85520; 85610; 85730; 86850; 86891; 86900; 86901; 86920; 87070; 93005; 93306; 93458; 93880; 93922; 93970; 94002; 94150; 94640; 94760; 96374; 99291

== ENCOUNTER → 2023-08-08 | Outpatient (CLI) | payer MEDICARE, OTHER ==
[2023-08-08 16:17] LABS: ALT 15 U/L (10-49); AST 15 U/L (14-35); Chol/HDL Ratio 2.82 Ratio
== END | disposition home or self-care (01) ==
LOC: LABWHC1 10:16
PROVIDERS: ATTEND Internal Medicine Cardiovascular Disease
DX: E78.2 Mixed hyperlipidemia (principal)
CPT/HCPCS: 36415; 80061; 84450; 84460

== ENCOUNTER → 2024-09-04 | Outpatient (CLI) | payer MEDICARE, OTHER ==
[2024-09-04 15:26] LABS: ALT 21 U/L (10-49); AST 21 U/L (14-35); Chol/HDL Ratio 3.15 Ratio; LDL Cholesterol,Calculated 46.5 mg/dL (0.0-131.0)
== END | disposition home or self-care (01) ==
LOC: LABWHC1 09:30
PROVIDERS: ATTEND Internal Medicine Cardiovascular Disease
DX: E78.2 Mixed hyperlipidemia (principal)
CPT/HCPCS: 36415; 80061; 84450; 84460

== ENCOUNTER 2024-09-06 10:27 | Emergency (ER) | payer MEDICARE, OTHER ==
[2024-09-06 10:33] VITALS: BP 157/67; PULSE 50; TEMP 98
--- NOTE | 2024-09-06 10:54 | ED ---
Skin/Abscess/FB HPI - General Chief complaint: Abdominal Pain Stated complaint: Wound in Belly Button Time Seen by Provider: 09/06/24 10:34 Source: patient, RN notes reviewed Mode of arrival: ambulatory Limitations: no limitations - History of Present Illness Initial comments: This is a 73-year-old male who presents to the emergency department for itching and discomfort in his umbilicus. States that he had a hernia repaired with mesh several years ago and yesterday started to notice what he thought was bleeding and irritation in the area. He is concerned about a problem related to the mesh from the surgery. - Related Data Home Medications Medication Instructions Recorded Confirmed Aspirin EC [Ecotrin Low Dose] 81 mg PO DAILY 01/29/22 01/29/22 HYDROcodone/APAP 10-325MG [[place] 1 tab PO TID PRN 01/29/22 01/29/22 10-325] LORazepam [Ativan] 0.5 mg PO HS PRN 01/29/22 01/29/22 Previous Rx's Medication Instructions Recorded Acetaminophen Tab [Tylenol] 1,000 mg PO Q6HR PRN tab 02/05/22 Amiodarone [Cordarone] 400 mg PO BID #48 tab 02/05/22 Atorvastatin [Lipitor] 40 mg PO DAILY #30 tab 02/05/22 Clopidogrel [Plavix] 75 mg PO DAILY #30 tab 02/05/22 Furosemide [Lasix] 20 mg PO DAILY #5 tab 02/05/22 Metoprolol Tartrate [Lopressor] 50 mg PO BID #60 tab 02/05/22 Pantoprazole [Protonix] 40 mg PO AC-BRKFST #30 tab 02/05/22 Sennosides-Docusate Sodium 2 each PO HS PRN tab 02/05/22 [Senokot-S] guaiFENesin [Mucinex] 1,200 mg PO Q12HR tab 02/05/22 Furosemide [Lasix] 20 mg PO DAILY #7 tab 02/13/22 Doxycycline [Vibramycin] 100 mg PO BID 10 Days #20 capsule 09/06/24 Allergies Allergy/AdvReac Type Severity Reaction Status Date / Time No Known Allergies Allergy Verified 09/06/24 10:33 Review of Systems ROS Statement: Those systems with pertinent positive or pertinent negative responses have been documented in the HPI. ROS Other: All systems not noted in ROS Statement are negative. Past Medical History Past Medical History: Coronary Artery Disease (CAD), Hyperlipidemia, Hypertension History of Any Multi-Drug Resistant Organisms: None Reported Past Surgical History: Coronary Bypass/CABG, Orthopedic Surgery Additional Past Surgical History / Comment(s): LEFT SHOULDER ROTATOR CUFF, DMITRIY CATARACTS WITH IMPLANTS, LEFT WRIST ORIF, COLONOSCOPY, TRIPLE BYPASS SURGERY Past Anesthesia/Blood Transfusion Reactions: No Reported Reaction Past Psychological History: Anxiety Smoking Status: Never smoker Past Alcohol Use History: None Reported Past Drug Use History: None Reported - Past Family History Mother Family Medical History: Cancer Additional Family Medical History / Comment(s): COLON Father Family Medical History: Myocardial Infarction ([place]) Additional Family Medical History / Comment(s): Father had a myocardial infarction at age 45 General Exam Limitations: no limitations General appearance: alert, in no apparent distress Head exam: Present: atraumatic, normocephalic, normal inspection Respiratory exam: Present: normal lung sounds bilaterally. Absent: respiratory distress, wheezes, rales, rhonchi, stridor Cardiovascular Exam: Present: regular rate, normal rhythm GI/Abdominal exam: Present: soft, other (Tick in the patient's umbilicus). Absent: distended Neurological exam: Present: alert, oriented X3, CN II-XII intact Psychiatric exam: Present: normal affect, normal mood Course Vital Signs 09/06/24 09/06/24 10:30 11:03 Temperature 98 F Pulse Rate 50 L Respiratory 16 18 Rate Blood Pressure 157/67 O2 Sat by Pulse 97 Oximetry Procedures - Forgein Body Removal Soft Tissue Consent Obtained: verbal consent Site: abdomen Foreign Body Suspected: Other (Tick) Foreign Body Removed: yes Foreign Body Removal Technique: Instrumentation Medical Decision Making - Medical Decision Making This is a 73-year-old male who presents to the emergency department for concerns of problems related to his umbilicus. Was pt. sent in by a medical professional or institution? @ -No Did you speak to anyone other than the patient for history? @ -No Did you review nursing and triage notes? @ -Yes, and I agree, it is accurate with regards to the patient's symptoms. Were old charts reviewed? @ -No Differential Diagnosis? @ -Cellulitis, abscess, hernia, foreign body, this is not meant to be an all- inclusive list. EKG interpreted by me (3pts min.)? @ -Not obtained X-rays interpreted by me (1pt min.)? @ -Not obtained CT interpreted by me (1pt min.)? @ -Not obtained U/S interpreted by me (1pt. min.)? @ -Not obtained What testing was considered but not performed? (CT, X-rays, U/S, labs)? Why? @ -None What meds were considered but not given? Why? @ -None Did you discuss the management of the patient with other professionals? @ -No Did you reconcile home meds? @ -No Was smoking cessation discussed for >3mins.? @ -No Was critical care preformed (if so, how long)? @ -No Were there social determinants of health that impacted care today? How? (Homelessness, low income, unemployed, alcoholism, drug addiction, transportation, low edu. Level, literacy, decrease access to med. care, residential, rehab)? @ -No Was there de-escalation of care discussed even if they declined? (Discuss DNR or withdrawal of care, Hospice)? @ -No What co-morbidities impacted this encounter? (DM, HTN, Smoking, COPD, CAD, Cancer, CVA, Hep., AIDS, mental health diagnosis, sleep apnea, morbid obesity)? @ -None Was patient admitted / discharged? @ -Discharged. Patient was concerned about a problem related to his hernia, however on exam he had a Tick stuck to his umbilicus. This was easily removed with tweezers. He had some minor general irritation to the site, however there was otherwise no sign of infection. Patient believes that he first noticed this yesterday, but cannot be entirely sure. Patient subsequently started on a 10- day course of doxycycline to be on the safe side, which he was in agreement with. Patient discharged home in stable condition and advised to follow-up with his primary care provider. Case discussed with ED attending Dr. Oh. Return precautions reviewed in depth, the patient is instructed to return to the emergency department with any new, worsening, or concerning symptoms. Patient verbalized understanding. Undiagnosed new problem with uncertain prognosis? @ -None Drug Therapy requiring intensive monitoring for toxicity (Heparin, Nitro, Insulin, Cardizem)? @ -None Were any procedures done? @ -Foreign body removal Diagnosis/symptom? @ -Tick bite Acute, or Chronic, or Acute on Chronic? @ -Acute Uncomplicated (without systemic symptoms) or Complicated (systemic symptoms)? @ -Uncomplicated Side effects of treatment? @ -None Exacerbation, Progression, or Severe Exacerbation] @ -Not applicable Poses a threat to life or bodily function? @ -No Disposition Clinical Impression: Tick bite of abdominal wall Disposition: HOME SELF-CARE Instructions (If sedation given, give patient instructions): Tick Bite (ED) Additional Instructions: Return to the emergency department with any new, worsening, or concerning symptoms. Take the antibiotic as prescribed for 10 days. Follow-up with your primary care provider as scheduled. Prescriptions: Doxycycline [Vibramycin] 100 mg PO BID 10 Days #20 capsule Is patient prescribed a controlled substance at d/c from ED?: No Referrals: Naye Stark MD [Primary Care Provider] - 1-2 days Time of Disposition: 10:53
[2024-09-06 11:28] VITALS: RESP 18
== END 2024-09-06 11:27 | disposition home or self-care (01) ==
LOC: EC 10:27
DX: S30.861A Insect bite (nonvenomous) of abdominal wall, initial encounter (principal); W57.XXXA Bitten or stung by nonvenomous insect and other nonvenomous arthropods, initial encounter
CPT/HCPCS: 10120; 99283